=== PATIENT | male | born 1960 | race Caucasian/White ===

== ENCOUNTER 2023-01-09 08:38 | Outpatient (RCR) | payer MEDICARE, MEDICAID, SELFPAY ==
--- NOTE | 2023-01-09 09:51 | OPREHPOC ---
Outpatient Therapy Plan of Care This is a Multidisciplinary Plan of Care that may contain components documented by all disciplines (PT, OT, and ST.) PT Problem 1 PT Problem #1 Knowledge Deficit PT Goal 1 Goal The patient will demonstrate independence in a home program for LE strength and flexibility to continue after discharge from formal PT. Target Visit 24 PT Problem 2 PT Problem #2 Pain PT Goal 1 Goal The patient will report a decrease in left knee pain to 2/10 or less with ADLs. Target Visit 24 PT Problem 3 PT Problem #3 Impaired Range of Motion PT Goal 1 Goal The patient will demonstrate left knee AROM of 0- 120 degrees to improve gait and stair negotiation. Target Visit 24 PT Problem 4 PT Problem #4 Impaired Strength PT Goal 1 Goal The patient will demonstrate 4/5 left knee and hip strength to provide support for gait and ADLs. PT Problem 5 PT Problem #5 Impaired Gait PT Goal 1 Goal The patient will ambulate at least 1,000 feet during the 6 min walk test with the least restrictive assistive device in order to return to community ambulation. Target Visit 24
--- NOTE | 2023-01-09 09:51 | PTOPEVAL1 ---
Assessment and note entered by Rhoda Lopes, PT Evaluation Information Assessment Status Evaluation Diagnosis s/p L TKA, L knee OA, tibial tendon dysfunction Onset 01/07/23 Subjective Information Dejan Caldwell reports he had a left knee replacement on 01/07/23. He had a one night stay in the hospital after surgery and had PT in the hospital. He has been trying home exercises that his hospital PT gave him. He is noting constant pain in the left knee, rating it a 10/10. He used a cane prior to surgery and underwent replacement due to OA. He has a history of 3 other L knee surgeries prior to the replacement. Reported Pain Level Pain Score 10: Self Report Assessment PT Clinical Summary Djean Caldwell presents 2 days s/p left TKA. He has difficulty with left knee ROM, walking, squatting, lifting, driving, and ADLs of dressing. He objectively demonstrates decreased left knee active and passive ROM, decreased left knee and hip strength, impaired balance, impaired gait, and decreased functional abilities. He will benefit from skilled PT to address these limitations. Plan of Care Interventions Electrical Stimulation,Hot Pack/Cold Pack, Intermittent Compression,Manual Therapy,Neuro Re- education,Patient/Caregiver Educati,Therapeutic Activities,Therapeutic Exercise PT Services Indicated Yes Treatment Frequency and 3 times a week for 24 visits Duration These treatments will address the objective and functional deficits as defined above. The patient will be advanced safely and appropriately in order for the patient to progress towards his/her prior level of function. Additional exercises will be introduced and as well as a comprehensive home exercise program upon discharge, if needed, ?to ensure carryover of functional gains achieved in the clinic. This treatment plan has been reviewed and agreement upon by the patient.
--- NOTE | 2023-02-07 16:25 | OPREHPOC ---
Outpatient Therapy Plan of Care This is a Multidisciplinary Plan of Care that may contain components documented by all disciplines (PT, OT, and ST.) PT Problem 1 PT Problem #1 Knowledge Deficit PT Goal 1 Goal The patient will demonstrate independence in a home program for LE strength and flexibility to continue after discharge from formal PT. Target Visit 24 Comment independent with current HEP, continue to progress PT Problem 2 PT Problem #2 Pain PT Goal 1 Goal The patient will report a decrease in left knee pain to 2/10 or less with ADLs. Target Visit 24 Comment resting pain levels have decreased since initial visit, higher levels still reported with activity PT Problem 3 PT Problem #3 Impaired Range of Motion PT Goal 1 Goal The patient will demonstrate left knee AROM of 0- 120 degrees to improve gait and stair negotiation. Target Visit 24 Comment improved ROM, continue to progress PT Problem 4 PT Problem #4 Impaired Strength PT Goal 1 Goal The patient will demonstrate 5/5 left knee and hip strength to provide support for gait and ADLs. Target Visit 24 Comment goal upgraded due to progress PT Problem 5 PT Problem #5 Impaired Gait PT Goal 1 Goal The patient will ambulate at least 1,000 feet during the 6 min walk test with the least restrictive assistive device in order to return to community ambulation. Target Visit 24 Comment distance met, however patient used SPC
--- NOTE | 2023-02-07 16:26 | PTOPPROGNS ---
Assessment and note entered by Gillian Bain DPT Evaluation Information Assessment Status Progress Diagnosis s/p L TKA, L knee OA, tibial tendon dysfunction Onset 01/07/23 Subjective Information Patient reports slight pain in the L knee at the beginning of today's visit. He reports that he feels like his overall mobility and endurance has improved since starting physical therapy. He notes he has been able to walk further distances and with less pain than previously. Patient reports he returns to the doctor february 15 for reassessment . Assessment PT Clinical Summary Mr. Caldwell has attended 10 sessions of skilled physical therapy and has made good progress towards goals. He demonstrated improvements in LE strength, as well as knee passive and action ROM at this date. He continues to show impairments in gait, particularly with reaching L terminal knee extension. Pt improved gait mechanics and speed, however is still limited in gait speed for community ambulation per 6-minute walk test. Appropriate to continue skilled PT to address overall strength, ROM, endurance, balance, and gait. Plan of Care Interventions Electrical Stimulation,Hot Pack/Cold Pack, Intermittent Compression,Manual Therapy,Neuro Re- education,Patient/Caregiver Educati,Therapeutic Activities,Therapeutic Exercise PT Services Indicated Yes Treatment Frequency and continue 3 times a week for remaining 14 visits Duration These treatments will address the objective and functional deficits as defined above. The patient will be advanced safely and appropriately in order for the patient to progress towards his/her prior level of function. Additional exercises will be introduced and as well as a comprehensive home exercise program upon discharge, if needed, ?to ensure carryover of functional gains achieved in the clinic. This treatment plan has been reviewed and agreement upon by the patient.
== END 2023-02-13 15:48 | disposition home or self-care (01) ==
LOC: CHSPT 08:38
PROVIDERS: Visit Provider Orthopaedic Surgery
DX: M17.12 Unilateral primary osteoarthritis, left knee (principal); M76.829 Posterior tibial tendinitis, unspecified leg
CPT/HCPCS: 97016; 97110; 97116; 97161; 97530

== ENCOUNTER 2023-03-23 11:46 | Emergency (ER) | payer MEDICARE, MEDICAID, SELFPAY ==
[2023-03-23 11:50] VITALS: BP 127/76; PULSE 52; RESP 20; TEMP 37.2; O2SAT 97
--- NOTE | 2023-03-23 11:53 | ED.SKABFB ---
HPI - Skin/Abscess/Foreign Bdy General Chief complaint: Skin/Abscess/Foreign Body Stated complaint: rash Time Seen by Provider: 03/23/23 11:49 Source: patient Mode of arrival: ambulatory Limitations: no limitations History of Present Illness HPI narrative: this is 62-year-old gentleman that presents with a rash located on his right flank area they are vesicles on an erythematous base currently nontender no itching no fever chills no shortness of breath chest pain. complaint: rash Onset (ago): day(s) Location: back Severity: mild Pain Consistency: constant Relieving factors: none Exacerbating factors: none Related Data Home Medications Medication Instructions Recorded Confirmed cyanocobalamin (vitamin B-12) 1,000 mcg PO DAILY 07/20/21 01/30/23 1,000 mcg tablet cannabis BYMOUTH 01/30/23 01/30/23 Allergies Allergy/AdvReac Type Severity Reaction Status Date / Time acetaminophen Allergy Severe states Verified 03/27/22 13:45 severe throat swelling--to er Review of Systems Review of Systems: All systems reviewed & are unremarkable except as noted in HPI and below PMFSH Past Medical History Medical History Acute non-recurrent maxillary sinusitis BMI 33.0-33.9,adult BMI 34.0-34.9,adult BMI 36.0-36.9,adult Bradycardia 3 day monitor with heart rate between 39 and 145 with no worrisome arrhythmias. No atrial fibrillation or atrial flutter or significant pauses on 12/27/2022. 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 Echocardiogram on 02/06/2023 with ejection fraction 55% with trace regurgitation of mitral valve, pulmonic valve, and tricuspid valve. Chronic low back pain without sciatica Chronic pain of left knee Chronic pain of right ankle COPD (chronic obstructive pulmonary disease) Folate deficiency anemia (07/19/21) level low at 3.9 on 07/19/2021. Level normal at 6.0 with hemoglobin 14.4 on 07/27/2022. Heel pain, bilateral Mixed hyperlipidemia total cholesterol 282, HDL 37, triglycerides 480 on 06/16/2019. Total cholesterol 204, triglycerides 203, HDL 47, LDL 125 on 07/19/2021. Total cholesterol 212, triglycerides 234, HDL 48, LDL 126 with ratio of 4.4 on 07/27/2022. Nocturia PSA 0.28 on 07/19/2021. PSA 0.39 on 07/27/2022. Obesity (BMI 30.0-34.9) Parkinsons disease Normal exam 07/19/2022. Plant allergic contact dermatitis Vitamin B12 deficiency anemia (07/19/21) B12 low at 358 with goal greater than 400 on 07/19/2021. Level low at 353 with hemoglobin 14.4 on 07/27/2022. Wart wart on left breast Family History Family History Mother Acute myocardial infarction Cerebrovascular accident Father Carcinoma of colon Social History Social History Smoking packs per day: 1.5 Smoking cigarettes per day: 30.0 Years smoked: 19 Smoking pack-years: 28.50 Smoking status: Heavy tobacco smoker Tobacco type: cigarettes Alcohol intake: never Substance use: current Substance use type: marijuana Other substance usage details: medical marijuana Lack of Transportation: No Lack of Food: Never True Current Housing: I Have Housing Concerned About Future Housing: No Difficulty Paying Gas/Electric Bills: No Difficulty Paying for Meds: No Currently Unemployed: No Education: High School Diploma/GED Difficulty w/ Childcare or Family Care: No Exam Const: General: healthy appearing Nutritional Appearance: well nourished Orientation/consciousness: patient oriented x3 Limitations: no limitations Chest: Chest palpation & inspection: normal inspection of the chest Resp: Effort & Inspection: normal respiratory effort Auscultation: clear to auscultation bilaterally Cardio: Rate: regular rate Rhythm: regular rhythm GI: Auscultation: normal bowel sounds Skin: Wounds: wounds noted Other:
== END 2023-03-23 12:02 | disposition home or self-care (01) ==
PROVIDERS: Emergency Provider Emergency Medicine
DX: B02.9 Zoster without complications (principal); J44.9 Chronic obstructive pulmonary disease, unspecified; E78.2 Mixed hyperlipidemia; G20 Parkinson's disease; F17.210 Nicotine dependence, cigarettes, uncomplicated
CPT/HCPCS: 99283

== ENCOUNTER 2023-09-05 13:40 | Emergency (ER) | payer MEDICARE, SELFPAY ==
--- NOTE | ~2023-09-05 | XR_ITS ---
EXAMINATION: XR hand LT min 3V INDICATION: Left hand pain, initial encounter TECHNIQUE: Three views of the left hand are obtained. COMPARISON: 11/15/2009 FINDINGS: There is a nail embedded in the palmar aspect of the second, third, and fourth fingers of t he left hand overlying the proximal phalanges. The nail enters the second finger and its tip projects in the fourth. Its trajectory is difficult to assess on the provided images. The nail appears to be within the soft tissues rather than the bones. No fracture is identified. There is moderate osteoarth ritis of multiple interphalangeal joints. IMPRESSION: 1. Nail embedded in the left hand as detail above which appears to be in the soft tissues rather than the bones however its trajectory is difficult to assess on the provided images. Reviewed, dictated and finalized at location L. LTY PHYSICIAN IMPRESSION: 1. Nail embedded in the left hand as detail above which appears to be in the so ft tissues rather than the bones however its trajectory is difficult to assess on the provided images.
[2023-09-05 13:40] VITALS: BP 154/83; PULSE 71; RESP 18; TEMP 36.7; O2SAT 96
[2023-09-05] MEDS: MORPHINE SULFATE (*CRX) 4 MG/ML INJ IM (14:14)
[2023-09-05] MEDS: TETANUS,DIPHTHERIA,AC PERTUSSIS ADULT 0.5 ML (ADACEL) IM (14:16)
--- NOTE | 2023-09-05 14:50 | PC.NURSE ---
assisted Dr. hugo/ removal of nail procedure
[2023-09-05 15:00] VITALS: BP 150/82; PULSE 67; RESP 17; O2SAT 97
--- NOTE | 2023-09-05 15:23 | ED.UPPEXIN ---
HPI - Extremity Injury (Upper) General Chief Complaint: Extremity Injury, Upper Stated Complaint: 2, 3, & 4 left phalanges injury w/ 3.5 in nail Time Seen by Provider: 09/05/23 13:52 Source: patient and family Mode of arrival: ambulatory Limitations: no limitations History of Present Illness HPI narrative: this is a 62-year-old male that was doing some woodwork and had a nail gun puncture his index 3rd and 4th finger the nail was still lodged has good radial pulse on the left with some some mild numbness and tingling in his fingers and pain that he rates about an 8/10 with decreased range of motion secondary to nail imbedded into his 2nd 3rd and 4th finger. complaint: injury to: left Onset (ago): hour(s) Other Extremity Injury: Left: fingers ( puncture wounds 2nd 3rd and 4th finger) Other injuries: none Handedness: right Place: home Severity: moderate Severity scale (1-10): 8 Context: other ( Nail gun was used and nail punctured his fingers on the left including 2nd 3rd and 4th finger) Associated symptoms: denies other symptoms Related Data Home Medications Medication Instructions Recorded Confirmed cyanocobalamin (vitamin B-12) 1,000 mcg PO DAILY 07/20/21 08/12/23 1,000 mcg tablet cannabis BYMOUTH 01/30/23 08/12/23 Allergies Allergy/AdvReac Type Severity Reaction Status Date / Time acetaminophen Allergy Severe states Verified 03/27/22 13:45 severe throat swelling--to er Review of Systems Review of Systems: All systems reviewed & are unremarkable except as noted in HPI and below PMFSH Past Medical History Medical History Acute non-recurrent maxillary sinusitis At moderate risk for fall BMI 33.0-33.9,adult BMI 34.0-34.9,adult BMI 36.0-36.9,adult Bradycardia 3 day monitor with heart rate between 39 and 145 with no worrisome arrhythmias. No atrial fibrillation or atrial flutter or significant pauses on 12/27/2022. 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 Echocardiogram on 02/06/2023 with ejection fraction 55% with trace regurgitation of mitral valve, pulmonic valve, and tricuspid valve. Chronic low back pain without sciatica Chronic pain of left ankle Chronic pain of left knee Total knee replacement 2022. Chronic pain of right ankle COPD (chronic obstructive pulmonary disease) Encounter for prostate cancer screening PSA 0.39 on 07/27/2022. PSA 0.38 on 07/18/2023. Folate deficiency anemia (07/19/21) level low at 3.9 on 07/19/2021. Level normal at 6.0 with hemoglobin 14.4 on 07/27/2022. Level low at 4.7 with hemoglobin 14.1 on 07/18/2023. Heel pain, bilateral Mixed hyperlipidemia total cholesterol 282, HDL 37, triglycerides 480 on 06/16/2019. Total cholesterol 204, triglycerides 203, HDL 47, LDL 125 on 07/19/2021. Total cholesterol 212, triglycerides 234, HDL 48, LDL 126 with ratio of 4.4 on 07/27/2022. Cholesterol 188, triglycerides 189, HDL 42, LDL 116 with ratio 4.5 on 07/18/2023. Nocturia PSA 0.28 on 07/19/2021. PSA 0.39 on 07/27/2022. Obesity (BMI 30.0-34.9) Parkinsons disease Normal exam 07/19/2022. Plant allergic contact dermatitis Vitamin B12 deficiency anemia (07/19/21) B12 low at 358 with goal greater than 400 on 07/19/2021. Level low at 353 with hemoglobin 14.4 on 07/27/2022. Level low at 178 with hemoglobin 14.1 on 07/18/2023. Wart wart on left breast Family History Family History Mother Acute myocardial infarction Cerebrovascular accident Father Carcinoma of colon Social History Social History Smoking packs per day: 1.5 Smoking cigarettes per day: 30.0 Years smoked: 19 Smoking pack-years: 28.50 Smoking status: Heavy tobacco smoker Tobacco type: cigarettes Alcohol intake: never Substance use: current Substance use type: marijuana Other substance usage details: medical m
[2023-09-05] MEDS: cefTRIAXone 1 GM, LIDOCAINE HCL 1% LOCAL INJ 2.1 ML IM (15:26)
--- NOTE | 2023-09-05 15:30 | PC.NURSE ---
Patient's hand has been soaking per erp request, further wound care done and dressing applied per erp request.
[2023-09-05 16:00] VITALS: BP 143/76; PULSE 66; RESP 17; O2SAT 97
[2023-09-05 16:10] VITALS: BP 142/72; PULSE 67; RESP 17; TEMP 36.9; O2SAT 96
--- NOTE | 2023-09-05 16:34 | PC.NURSE ---
On 09/05/23, the student, Thea Fry, provided care and completed [employer] documentation on this patient. I have reviewed the student's documentation and agree with the findings.
== END 2023-09-05 16:10 | disposition home or self-care (01) ==
PROVIDERS: Emergency Provider Emergency Medicine; PCP Family Medicine
DX: S61.241A Puncture wound with foreign body of left index finger without damage to nail, initial encounter (principal); S61.245A Puncture wound with foreign body of left ring finger without damage to nail, initial encounter; S61.243A Puncture wound with foreign body of left middle finger without damage to nail, initial encounter; E78.2 Mixed hyperlipidemia; J44.9 Chronic obstructive pulmonary disease, unspecified; G20.A1 Parkinson's disease without dyskinesia, without mention of fluctuations; F17.210 Nicotine dependence, cigarettes, uncomplicated; Z23 Encounter for immunization; W29.4XXA Contact with nail gun, initial encounter
CPT/HCPCS: 73130; 90471; 90715; 96372; 99284; J0696; J2270

== ENCOUNTER 2023-09-25 02:08 | Day surgery (SDC) | payer MEDICARE, SELFPAY ==
[2023-09-16 14:49] VITALS: BMI 33.5
--- NOTE | 2023-09-23 09:10 | SUR.PREOP ---
Patient called regarding upcoming procedure. Reviewed preop instructions, appointment times, and procedure prep.
[2023-09-25 09:24] VITALS: BP 127/78; PULSE 50; RESP 19; TEMP 36.1; O2SAT 98; BMI 32.8
[2023-09-25] MEDS: LACTATED RINGERS 1,000 ML 150 ML IV CONT (09:28)
[2023-09-25 09:44] LABS: Glucose Point of Care 111 mg/dl (65-105)
--- NOTE | 2023-09-25 10:04 | WPDANESEPPF ---
Anes - Initial Pre Proc Eval Procedure: Operation Date: 09/25/23 10:30 Proposed Procedures p Colonoscopy - Chandler Vallejo MD Date/Time: 09/25/23 10:04 Surgeon: Chandler Vallejo MD Pre Op Diagnosis: hx of colon polyps Patient Data Age: 62 Gender: M Height: 1.73 m Weight: 98.1 kg Last Vital Signs Temp 96.9 F L 09/25/23 09:24 Pulse 50 L 09/25/23 09:24 Resp 19 09/25/23 09:24 BP 127/78 09/25/23 09:24 Pulse Ox 98 09/25/23 09:24 O2 Del Method Room Air 09/25/23 09:24 Allergies Allergy/AdvReac Type Severity Reaction Status Date / Time acetaminophen Allergy Severe states Verified 09/25/23 09:21 severe throat swelling--to er Home Medications Medication Instructions Recorded Confirmed Type cyanocobalamin (vitamin B-12) 1,000 mcg PO DAILY 07/20/21 09/25/23 History 1,000 mcg tablet triamcinolone acetonide 0.5 % 1 applic topical BID #60 grams 02/12/22 09/25/23 Rx topical cream valacyclovir 1 gram tablet 2,000 mg PO BID PRN fever blister 02/12/22 09/25/23 Rx #30 tabs fluticasone 100 mcg-salmeterol 50 1 inh inhalation Q12H #60 ea 07/19/22 09/25/23 Rx mcg/dose blistr powdr for inhalation (Advair Diskus) metformin 500 mg tablet,extended 500 mg PO QPM #90 tabs 09/24/22 09/25/23 Rx release 24 hr quetiapine 50 mg tablet (Seroquel) 50 mg PO DAILY #90 tabs 11/05/22 09/25/23 Rx cannabis BYMOUTH 01/30/23 08/12/23 History nystatin 100,000 unit/gram topical 1 applic topical BID #30 grams 02/26/23 09/25/23 Rx cream Ventolin HFA 90 mcg/actuation 2 puff inhalation Q4H PRN 05/02/23 09/25/23 Rx aerosol inhaler (albuterol sulfate) shortness of breath or wheezing #18 grams folic acid 1 mg tablet 1 mg PO DAILY #90 tabs 11/09/23 03/13/24 Rx fenofibrate 160 mg tablet 160 mg PO DAILY #90 tabs 06/03/23 09/25/23 Rx budesonide-formoterol HFA 80 2 puff inhalation Q12H #10.2 grams 06/13/23 09/25/23 Rx mcg-4.5 mcg/actuation aerosol inhaler (Symbicort) atorvastatin 40 mg tablet 40 mg PO DAILY #90 tabs 06/17/23 09/25/23 Rx bupropion HCl 150 mg 24 hr tablet, 150 mg PO QAM #90 tabs 06/17/23 09/25/23 Rx extended release (Wellbutrin XL) escitalopram oxalate 20 mg tablet 20 mg PO . Q.a.m. #90 tabs 06/17/23 09/25/23 Rx (Lexapro) buspirone 10 mg tablet 10 mg PO BID #60 tabs 08/12/23 09/25/23 Rx hydrocodone 7.5 mg-ibuprofen 200 1 tablet PO Q6H PRN pain #90 tabs 09/03/23 09/25/23 Rx mg tablet mupirocin 2 % topical ointment 1 applic topical TID 1 week #15 09/05/23 09/25/23 Rx grams Laboratory Tests 09/25/23 09:40 POC Capillary Glucose 111 H mg/dl (65-105) Patient hx anesthesia problems: none Family hx anesthesia problems: none Results Review: All pre-operative results and documents have been reviewed as part of the pre-operative evaluation. [facility] Past Medical History Medical History Acute non-recurrent maxillary sinusitis At moderate risk for fall BMI 33.0-33.9,adult BMI 34.0-34.9,adult BMI 36.0-36.9,adult Bradycardia 3 day monitor with heart rate between 39 and 145 with no worrisome arrhythmias. No atrial fibrillation or atrial flutter or significant pauses on 12/27/2022. Opthalmic Tech appointment on 01/07/2023. Echocardiogram on 02/06/2023 with ejection fraction 55% with trace regurgitation of mitral valve, pulmonic valve, and tricuspid valve. Chronic low back pain without sciatica Chronic pain of left ankle Chronic pain of left knee Total knee replacement 2022. Chronic pain of right ankle COPD (chronic obstructive pulmonary disease) Encounter for prostate cancer screening PSA 0.39 on 07/27/2022. PSA 0.38 on 07/18/2023. Folate deficiency anemia (07/19/21) level low at 3.9 on 07/19/2021. Level normal at 6.0 with hemoglobin 14.4 on 07/27/2022. Level low at 4.7 with hemoglobin 14.1 on 07/18/2023. Heel pain, bilateral Mixed hyperlipidemia total
--- NOTE | 2023-09-25 10:13 | PM.HPGS ---
History of Present Illness History of Present Illness Consent: Risks, benefits, and alternatives have been discussed and questions answered. Patient agrees to proceed with procedure. Chief complaint: hx of colon polyps Narrative: Dejan Caldwell is a 62 year old male with history of colon polyps in 2019. Review of Systems Review of Systems: All systems reviewed & are unremarkable except as noted in HPI and below PMFSH Past Medical History Medical History Acute non-recurrent maxillary sinusitis At moderate risk for fall BMI 33.0-33.9,adult BMI 34.0-34.9,adult BMI 36.0-36.9,adult Bradycardia 3 day monitor with heart rate between 39 and 145 with no worrisome arrhythmias. No atrial fibrillation or atrial flutter or significant pauses on 12/27/2022. 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 Echocardiogram on 02/06/2023 with ejection fraction 55% with trace regurgitation of mitral valve, pulmonic valve, and tricuspid valve. Chronic low back pain without sciatica Chronic pain of left ankle Chronic pain of left knee Total knee replacement 2022. Chronic pain of right ankle COPD (chronic obstructive pulmonary disease) Encounter for prostate cancer screening PSA 0.39 on 07/27/2022. PSA 0.38 on 07/18/2023. Folate deficiency anemia (07/19/21) level low at 3.9 on 07/19/2021. Level normal at 6.0 with hemoglobin 14.4 on 07/27/2022. Level low at 4.7 with hemoglobin 14.1 on 07/18/2023. Heel pain, bilateral Mixed hyperlipidemia total cholesterol 282, HDL 37, triglycerides 480 on 06/16/2019. Total cholesterol 204, triglycerides 203, HDL 47, LDL 125 on 07/19/2021. Total cholesterol 212, triglycerides 234, HDL 48, LDL 126 with ratio of 4.4 on 07/27/2022. Cholesterol 188, triglycerides 189, HDL 42, LDL 116 with ratio 4.5 on 07/18/2023. Nocturia PSA 0.28 on 07/19/2021. PSA 0.39 on 07/27/2022. Obesity (BMI 30.0-34.9) Parkinsons disease Normal exam 07/19/2022. Plant allergic contact dermatitis Vitamin B12 deficiency anemia (07/19/21) B12 low at 358 with goal greater than 400 on 07/19/2021. Level low at 353 with hemoglobin 14.4 on 07/27/2022. Level low at 178 with hemoglobin 14.1 on 07/18/2023. Malorie beverly on left breast Family History Family History Mother Acute myocardial infarction Cerebrovascular accident Father Carcinoma of colon Social History Social History Smoking packs per day: 1.5 Smoking cigarettes per day: 30.0 Years smoked: 19 Smoking pack-years: 28.50 Smoking status: Current every day smoker Tobacco type: cigarettes Alcohol intake: never Substance use: current Substance use type: marijuana Other substance usage details: medical marijuana Lack of Transportation: No Lack of Food: Never True Current Housing: I Have Housing Concerned About Future Housing: No Difficulty Paying Gas/Electric Bills: No Difficulty Paying for Meds: No Currently Unemployed: No Education: High School Diploma/GED Difficulty w/ Childcare or Family Care: No Living arrangements: with family Spiritual care concerns: No Meds Home Medications and Allergies Home Medications Medication Instructions Recorded Confirmed Type cyanocobalamin (vitamin B-12) 1,000 mcg PO DAILY 07/20/21 09/25/23 History 1,000 mcg tablet triamcinolone acetonide 0.5 % 1 applic topical BID #60 grams 02/12/22 09/25/23 Rx topical cream valacyclovir 1 gram tablet 2,000 mg PO BID PRN fever blister 02/12/22 09/25/23 Rx #30 tabs fluticasone 100 mcg-salmeterol 50 1 inh inhalation Q12H #60 ea 07/19/22 09/25/23 Rx mcg/dose blistr powdr for inhalation (Advair Diskus) metformin 500 mg tablet,extended 500 mg PO QPM #90 tabs 09/24/22 09/25/23 Rx release 24 hr quetiapine 50 mg tablet (Seroquel) 50 mg PO DAILY #90 tabs 11/05/22 09/25/23 Rx cannabis
[2023-09-25 10:51] VITALS: BP 109/52; PULSE 48; RESP 22; O2SAT 95
[2023-09-25 11:01] VITALS: BP 109/66; PULSE 47; RESP 19; O2SAT 96
[2023-09-25 11:11] VITALS: BP 129/65; PULSE 50; RESP 19; O2SAT 100
--- NOTE | 2023-09-25 11:14 | SUR.PHASEII ---
Dr. Gill aware of patient's bradycardia in the 40's-50's. Patient states this is what he normally runs. Dr. Gill okay with patient being discharged.
== END 2023-09-25 11:15 | disposition home or self-care (01) ==
PROVIDERS: PCP Family Medicine; Visit Provider Internal Medicine Gastroenterology
PROC: 0DJD8ZZ Inspection of Lower Intestinal Tract, Via Natural or Artificial Opening Endoscopic (ICD-10-PCS; CPT 45378; principal; 2023-09-25 10:30)
DX: Z12.11 Encounter for screening for malignant neoplasm of colon (principal); D12.3 Benign neoplasm of transverse colon; D12.2 Benign neoplasm of ascending colon; K63.5 Polyp of colon; K57.30 Diverticulosis of large intestine without perforation or abscess without bleeding; K64.8 Other hemorrhoids; J44.9 Chronic obstructive pulmonary disease, unspecified; E78.2 Mixed hyperlipidemia; G20.A1 Parkinson's disease without dyskinesia, without mention of fluctuations; D52.9 Folate deficiency anemia, unspecified; G89.29 Other chronic pain; Z79.84 Long term (current) use of oral hypoglycemic drugs; Z79.51 Long term (current) use of inhaled steroids; Z79.891 Long term (current) use of opiate analgesic; F17.210 Nicotine dependence, cigarettes, uncomplicated; F12.90 Cannabis use, unspecified, uncomplicated; E66.9 Obesity, unspecified; Z68.32 Body mass index [BMI] 32.0-32.9, adult
CPT/HCPCS: 45385; 82948; 88305; J2704; J7120

== ENCOUNTER 2024-02-22 18:19 | Emergency (ER) | payer MEDICARE, OTHER, SELFPAY ==
[2024-02-22 18:19] VITALS: BP 135/73; PULSE 58; RESP 16; TEMP 35.9; O2SAT 95
--- NOTE | 2024-02-22 18:46 | ED.WOUNDLAC ---
HPI - Wound/Laceration General Chief Complaint: Wound/Laceration Stated Complaint: LACERATION HAND Source: patient and family Mode of arrival: ambulatory Limitations: no limitations History of Present Illness HPI narrative: laceration at the base of left thumb on a ratchet strap at home 1 hour prior to arrival he tried to glue it without success Related Data Home Medications Medication Instructions Recorded Confirmed cyanocobalamin (vitamin B-12) 1,000 mcg PO DAILY 07/20/21 11/11/23 1,000 mcg tablet cannabis BYMOUTH 01/30/23 11/11/23 Allergies Allergy/AdvReac Type Severity Reaction Status Date / Time acetaminophen Allergy Severe states Verified 02/22/24 18:28 severe throat swelling--to er Review of Systems Review of Systems: All systems reviewed & are unremarkable except as noted in HPI and below PMFSH Past Medical History Medical History Acute non-recurrent maxillary sinusitis At moderate risk for fall BMI 33.0-33.9,adult BMI 34.0-34.9,adult BMI 36.0-36.9,adult Bradycardia 3 day monitor with heart rate between 39 and 145 with no worrisome arrhythmias. No atrial fibrillation or atrial flutter or significant pauses on 12/27/2022. 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 Echocardiogram on 02/06/2023 with ejection fraction 55% with trace regurgitation of mitral valve, pulmonic valve, and tricuspid valve. Chronic low back pain without sciatica Chronic pain of left ankle Chronic pain of left knee Total knee replacement 2022. Chronic pain of right ankle COPD (chronic obstructive pulmonary disease) Encounter for prostate cancer screening PSA 0.39 on 07/27/2022. PSA 0.38 on 07/18/2023. Folate deficiency anemia (07/19/21) level low at 3.9 on 07/19/2021. Level normal at 6.0 with hemoglobin 14.4 on 07/27/2022. Level low at 4.7 with hemoglobin 14.1 on 07/18/2023. Level normal at 18.1 on 10/18/2023. Heel pain, bilateral Mixed hyperlipidemia total cholesterol 282, HDL 37, triglycerides 480 on 06/16/2019. Total cholesterol 204, triglycerides 203, HDL 47, LDL 125 on 07/19/2021. Total cholesterol 212, triglycerides 234, HDL 48, LDL 126 with ratio of 4.4 on 07/27/2022. Cholesterol 188, triglycerides 189, HDL 42, LDL 116 with ratio 4.5 on 07/18/2023. Nocturia PSA 0.28 on 07/19/2021. PSA 0.39 on 07/27/2022. Obesity (BMI 30.0-34.9) Parkinsons disease Normal exam 07/19/2022. Plant allergic contact dermatitis Vitamin B12 deficiency anemia (07/19/21) B12 low at 358 with goal greater than 400 on 07/19/2021. Level low at 353 with hemoglobin 14.4 on 07/27/2022. Level low at 178 with hemoglobin 14.1 on 07/18/2023. Level normal at 664 on 10/18/2023. Wart wart on left breast Family History Family History Mother Acute myocardial infarction Cerebrovascular accident Father Carcinoma of colon Social History Social History Smoking packs per day: 1.5 Smoking cigarettes per day: 30.0 Years smoked: 19 Smoking pack-years: 28.50 Smoking status: Current every day smoker Tobacco type: cigarettes Alcohol intake: never Substance use: current Substance use type: marijuana Other substance usage details: medical marijuana Lack of Transportation: No Lack of Food: Never True Current Housing: I Have Housing Concerned About Future Housing: No Difficulty Paying Gas/Electric Bills: No Difficulty Paying for Meds: No Currently Unemployed: No Education: High School Diploma/GED Difficulty w/ Childcare or Family Care: No Living arrangements: with family Spiritual care concerns: No Exam Narrative: General appearance: Well-developed, well-nourished Skin: Normal color Vascular: Normal peripheral pulses, normal capillary refill. Musculoskeletal: left hand exam showed 2.5 cm laceration at the base of left thumb,
[2024-02-22] MEDS: LIDO 1%/EPINEPHRINE 1:100,000 20 ML VIAL 5 ML INFILTRATE (18:50)
[2024-02-22] MEDS: CEPHALEXIN 500 MG CAPSULE PO (19:25)
[2024-02-22 19:28] VITALS: BP 140/85; PULSE 80; RESP 18; TEMP 36.6; O2SAT 99
== END 2024-02-22 19:28 | disposition home or self-care (01) ==
PROVIDERS: Emergency Provider Emergency Medicine; PCP Family Medicine
DX: S61.412A Laceration without foreign body of left hand, initial encounter (principal); J44.9 Chronic obstructive pulmonary disease, unspecified; E78.2 Mixed hyperlipidemia; F17.210 Nicotine dependence, cigarettes, uncomplicated; W45.8XXA Other foreign body or object entering through skin, initial encounter
CPT/HCPCS: 12001; 99283; A9270

== ENCOUNTER 2024-04-29 08:48 | Outpatient (RCR) | payer MEDICARE, SELFPAY ==
--- NOTE | 2024-04-29 09:45 | OPREHPOC ---
Outpatient Therapy Plan of Care This is a Multidisciplinary Plan of Care that may contain components documented by all disciplines (PT, OT, and ST.) PT Problem 1 PT Problem #1 Knowledge Deficit PT Goal 1 Goal / Goal Update 1. independent and compliant with HEP Target Visit 6 PT Problem 2 PT Problem #2 Pain PT Goal 1 Goal / Goal Update 1. decrease pain at worst to 5/10 or less in the L knee Target Visit 12 PT Problem 3 PT Problem #3 Impaired Range of Motion PT Goal 1 Goal / Goal Update 1. achieve 0-120 degrees active L knee mobility Target Visit 12 PT Problem 4 PT Problem #4 Impaired Strength PT Goal 1 Goal / Goal Update 1. 5/5 bilateral ankle DF strength 2. 5/5 bilateral knee strength overall 3. 4+/5 L hip flex strength Target Visit 12 PT Problem 5 PT Problem #5 Impaired Functional Mobil PT Goal 1 Goal / Goal Update 1. LEFS to display 40% or less functional deficits 2. patient to ambulate with normal gait mechanics without an AD 3. patient to ambulate up and down steps with reciprocal mechanics without increased pain. Target Visit 12
--- NOTE | 2024-04-29 09:45 | PTOPEVAL1 ---
Assessment and note entered by JT File, PT Evaluation Information Assessment Status Evaluation ICD-10 Condition Codes (PT) Z47.89,Z47.1 Onset 04/28/24 Subjective Information patient reports he had L knee replacement back in 2022. he reports he is going to have a revision surgery on the L knee. he reports he is coming to therapy for prehab. he reports the L knee replacement is currently loose and hard for him to walk. he reports he has pain all the time. he reports he is having the revision done by Dr. Rodriguez. he reports he has pain with walking, sitting, standing, stairs, etc. he reports the pain in the knee is now causing pain to the ankles bilaterally from having to change how he walks. he reports he walks with a cane all the time. Reported Pain Level Pain Score 5: Self Report Assessment PT Clinical Summary mr. chambers is a 63 yo man who presents to skilled PT services for rehab due to complications from a previous knee replacement on the L LE. he reports he has had pain since, and reports he was told the knee is loosening. he reports he is going to have a revision done, but is going through the more conservative steps first. he presents today with deficits in L LE mm strength, L knee rom, and displays abnormal gait mechanics. he would benefit from continued skilled PT to address his objective/functional deficits to try and avoid having to have revision of the L knee/prepare the mm's and knee for revision surgery. Plan of Care Interventions Electrical Stimulation,Gait Training,Hot Pack/Cold Pack,Manual Therapy,Neuro Re-education,Patient/ Caregiver Educati,Therapeutic Activities, Therapeutic Exercise PT Services Indicated Yes Treatment Frequency and 3x weekly for 12 visits Duration These treatments will address the objective and functional deficits as defined above. The patient will be advanced safely and appropriately in order for the patient to progress towards his/her prior level of function. Additional exercises will be introduced and as well as a comprehensive home exercise program upon discharge, if needed, ?to ensure carryover of functional gains achieved in the clinic. This treatment plan has been reviewed and agreement upon by the patient.
--- NOTE | 2024-05-01 12:02 | PCPTNOTE ---
Patient called & cancelled scheduled appointment this date due to [not feeling well. ]
--- NOTE | 2024-05-25 17:58 | PTOPPROG ---
Assessment and note entered by Jordin [facility] Evaluation Information Assessment Status Progress - Pt Not Present ICD-10 Condition Codes (PT) Z47.89,Z47.1 Onset 04/28/24 Subjective Information Information provided from 05/22/24 daily note. Pt reports having increased pain over the weekend, but not sure what he did. pt reports nothing helps decrease his pain. Assessment PT Clinical Summary Information gathered from 05/22/24 appointment indicated slight improvement in strength and mobility. Despite improvement the pt. continues to be limited due to pain. Continued skilled PT is indicated in order to continue focus on strength deficits per POC. Plan of Care Interventions Electrical Stimulation,Gait Training,Hot Pack/Cold Pack,Manual Therapy,Neuro Re-education,Patient/ Caregiver Educati,Therapeutic Activities, Therapeutic Exercise PT Services Indicated Yes Treatment Frequency and Continue with 2 remaining treatment sessions Duration focusing on remaining strength deficits. These treatments will address the objective and functional deficits as defined above. The patient will be advanced safely and appropriately in order for the patient to progress towards his/her prior level of function. Additional exercises will be introduced and as well as a comprehensive home exercise program upon discharge, if needed, ?to ensure carryover of functional gains achieved in the clinic. This treatment plan has been reviewed and agreement upon by the patient.
--- NOTE | 2024-05-26 10:10 | OPREHPOC ---
Outpatient Therapy Plan of Care This is a Multidisciplinary Plan of Care that may contain components documented by all disciplines (PT, OT, and ST.) PT Problem 1 PT Problem #1 Knowledge Deficit PT Goal 1 Goal / Goal Update 1. independent and compliant with HEP Target Visit 6 Progress Met PT Problem 2 PT Problem #2 Pain PT Goal 1 Goal / Goal Update 1. decrease pain at worst to 5/10 or less in the L knee Target Visit 12 Progress Not Met PT Problem 3 PT Problem #3 Impaired Range of Motion PT Goal 1 Goal / Goal Update 1. achieve 0-120 degrees active L knee mobility Target Visit 12 Progress Not Met PT Problem 4 PT Problem #4 Impaired Strength PT Goal 1 Goal / Goal Update 1. 5/5 bilateral ankle DF strength 2. 5/5 bilateral knee strength overall 3. 4+/5 L hip flex strength Target Visit 12 Progress Not Met PT Problem 5 PT Problem #5 Impaired Functional Mobil PT Goal 1 Goal / Goal Update 1. LEFS to display 40% or less functional deficits 2. patient to ambulate with normal gait mechanics without an AD 3. patient to ambulate up and down steps with reciprocal mechanics without increased pain. Target Visit 12 Progress Not Met
--- NOTE | 2024-05-26 10:10 | PTOPDC ---
Assessment and note entered by Rhoda Lopes, PT Evaluation Information Assessment Status Progress ICD-10 Condition Codes (PT) Z47.89,Z47.1 Other ICD-10 Condition Codes ( Z47.89, Z47.1 PT) Onset 04/28/24 Subjective Information Dejan Caldwell reports his left knee is the same. He continues to have difficulty walking, squatting , and navigating stairs. He notes he can not walk more than one block due to pain. He does not feel that his knee has improved at all with PT. Reported Pain Level Pain Score 6: Self Report Pain Score 7: Self Report Pain Score 7: Self Report Assessment PT Clinical Summary Dejan Caldwell has completed 12 skilled PT visits for L knee pain following complications after a total knee replacement. He is reporting no change in left knee symptoms since initiating PT and continues to have difficulty walking, navigating stairs, and squatting. He objectively demonstrates decreased and painful left knee AROM, decreased left knee and hip strength, impaired gait, and decreased functional abilities. He demonstrates a regression in left knee AROM today compared to his initial evaluation and has had increased pain over the weekend for unknown reasons. He will see his orthopedic doctor on 05/28/24. He will be discharged from skilled PT due to lack of improvement. Plan of Care PT Services Indicated No
== END 2024-05-26 10:15 | disposition home or self-care (01) ==
LOC: CHSPT 08:48
PROVIDERS: Visit Provider Orthopaedic Surgery
DX: M25.562 Pain in left knee (principal); Z96.652 Presence of left artificial knee joint
CPT/HCPCS: 97014; 97110; 97112; 97150; 97161; 97530; 97750; G0283

== ENCOUNTER 2024-06-02 07:36 | Outpatient (CLI) | payer MEDICARE, SELFPAY ==
--- NOTE | ~2024-06-02 | NM_ITS ---
EXAMINATION: NM bone scan whole body DATE: 06/02/2024 11:27 INDICATION: Left total knee arthroplasty. TECHNIQUE: 25.4 mCi Tc-99m HDP was administered intravenously. Delayed whole-body scintigrams were o btained. COMPARISON: Left knee radiographs dated 06/28/2023, left hand radiographs dated 09/05/2023 and left an kle radiographs dated 03/31/2024 FINDINGS: Likely degenerative joint centered uptake at the bilateral acromioclavicular joints and at multiple j oints at the bilateral hands, wrists, feet and ankles. Photopenic defect at the left knee correspondi ng to a total knee arthroplasty mild uptake along the margins of the arthroplasty components includin g linear uptake underlying the tibial tray which is within normal limits. No other foci of abnormal b one uptake. IMPRESSION: 1. Mild uptake along the margins of a left total knee arthroplasty which remains within normal limits . Would consider however correlation with repeat radiographs of the left knee as [facility]. Line 2. Scattered mild likely degenerative joint centered uptake in the bilateral upper and lower limbs. Reviewed, dictated and finalized at location B. TY TRAPPER IMPRESSION: 1. Mild uptake along the margins of a left total knee arthroplasty which remain s within normal limits. Would consider however correlation with repeat radiogra phs of the left knee as the most recent comparison radiographs are from nearly one year prior. Line 2. Scattered mild likely degenerative joint centered uptake in the bilateral up per and lower limbs.
[2024-06-02 08:22] LABS: Basophils Absolute Auto 0.1 K/mm3 (0.0-0.1); Eosinophils Absolute Auto 0.3 K/mm3 (0-0.3); Eosinophils Percent Auto 2.8 % (0-4.4); Hematocrit 42.8 % (42.0-52.0); Immature Granulocyte Absolute 0.05 K/mm3 (0.00-0.031); Immature Granulocyte Percent A 0.5 % (0-0.5); Lymphocytes Absolute Auto 2.76 K/mm3 (0.9-3.2); Lymphocytes Percent Auto 28.8 % (18.3-44.2); Mean Corpuscular HGB Conc 32.7 g/dl (32-36); Mean Corpuscular Hemoglobin 29.1 pg (26-34); Mean Platelet Volume 9.4 fl (7.4-10.4); Monocytes Absolute Auto 0.7 K/mm3 (0.1-0.6); Monocytes Percent Auto 7.7 % (2.6-8.5); Neutrophils Absolute Auto 5.7 K/mm3 (1.3-6.7); Neutrophils Percent Auto 59.2 % (45.5-73.1); Platelet Count Result 315 k/mm3 (150-375); Red Blood Count 4.81 M/mm3 (4.6-6.20); Red Cell Distribution Width 14.7 % (11.5-14.5); White Blood Count 9.6 K/mm3 (4.5-10.0)
[2024-06-02 08:41] LABS: CRP 0.7 mg/dL (<1.0)
[2024-06-02 09:32] LABS: Erythrocyte Sedimentation Rate 16 mm/hr (0-20)
== END 2024-06-02 07:37 | disposition home or self-care (01) ==
PROVIDERS: PCP Family Medicine; Visit Provider Orthopaedic Surgery
DX: T84.84XA Pain due to internal orthopedic prosthetic devices, implants and grafts, initial encounter (principal); Z96.652 Presence of left artificial knee joint
CPT/HCPCS: 36415; 78306; 85025; 85652; 86140; A9503

== ENCOUNTER 2024-06-15 08:21 | Outpatient (CLI) | payer MEDICARE, SELFPAY ==
--- NOTE | ~2024-06-15 | US_ITS ---
EXAMINATION: US knee asp inj w image LT DATE: 06/15/2024 09:52 INDICATION: Presence of left artificial knee joint. TECHNIQUE: The procedure including the risks, benefits, and alternatives was discussed with the patie nt. Risks discussed included bleeding and infection. The patient understood the risks and agreed to p roceed. The skin overlying the left knee was prepped and draped in usual sterile fashion. Anesthetic was administered with 1% lidocaine subcutaneously. An 18 gauge needle was inserted into the left kn ee joint under ultrasound guidance. Fluid was aspirated. The entry site was cleaned and dressed. The re were no immediate complications. FINDINGS: The left knee joint fluid is not well visualized with ultrasound. IMPRESSION: 1. Ultrasound-guided left knee joint aspiration yielding 7 mL of yellow fluid. Reviewed, dictated and finalized at location A. RAFT PNEUDRAULIC SYSTEMS MECHANIC
--- NOTE | ~2024-06-15 | CT_ITS ---
EXAMINATION: CT knee LT wo con DATE: 06/15/2024 09:49 INDICATION: Presence of left artificial knee joint. TECHNIQUE: Computed tomography (CT) of the left knee was performed without intravenous contrast. Auto mated exposure control and iterative reconstruction technique were employed. The dose-length product was 495.06 mGy-cm. COMPARISON: Bone scan 06/02/2024, left knee radiographs 06/28/2023 FINDINGS: There is a total left knee arthroplasty in near-anatomic alignment with patellar resurfacin g. No fracture. No periprosthetic lucency to suggest loosening or infection. There is a small knee dk int effusion. IMPRESSION: 1. Total left knee arthroplasty in near-anatomic alignment. 2. Small left knee joint effusion. Reviewed, dictated and finalized at location A. DCAST NEWS PRODUCER
== END 2024-06-15 08:22 | disposition home or self-care (01) ==
PROVIDERS: PCP Family Medicine; Visit Provider Orthopaedic Surgery
DX: T84.84XA Pain due to internal orthopedic prosthetic devices, implants and grafts, initial encounter (principal); Z96.652 Presence of left artificial knee joint; G89.29 Other chronic pain; M25.562 Pain in left knee
CPT/HCPCS: 20611; 73700; 87070; 87075; 87205

== ENCOUNTER 2024-08-26 08:39 | Outpatient (CLI) | payer OTHER, SELFPAY ==
--- OUTSIDE RECORDS SUMMARY | 2024-08-26 09:08 | XMS_ITS | Continuity of Care Document ---
Author Organization [facility] Address [address] [place] [address] Phone Care Team Providers Care Termite Inspector Name Role Phone Alaina Velasco Unavailable Unavailable Advance Directives Directive Yes / No Effective Date File Name No Information Encounters Encounter Description Practice Location Reason(s) For Visit Diagnoses Date Provider Providers Copied on Encounter Formerly [facility], [address], [place], [place], [id number], [place] tel:[phone] [facility] [place] No Information Sep- 7-200 5 Krista Foley. [address] , [address], [place], [address], [place]. tel:[phone] Referring Provider: Dejan Nation MD, [address] [place] [address], [place], [address]. tel:[phone] Family History Family Member Type Diagnosis Age At Onset No Information Payers Payer name Insurance type Covered republican ID Authoriza tiangelique(s) IDOT [id number] Social History Type Description Quantity Date Captured Comments Sex Male Smoking Status No Information Chief Complaint And Reason For Visit No Information Reason For Referral Reason For Referral No Information History Of Present Illness Encounter Date Complaint History Of Prese nt Illness No Information Functional Status Date Functional Assessmen t No Information Instructions Date Instruction Additional Infor mation No Information Assessments Type Assessment Date No Information Patient Care Teams Name Effective Dates (start - stop) Status Members No Information
--- OUTSIDE RECORDS SUMMARY | 2024-08-26 09:08 | XMS_ITS | Encounter Summary ---
Author Organization [facility] Address [address] [place] [address] Care Team Providers Care Delivery Helper Name Role Phone Dejan Nation MD Primary Care Provider [phone] Julita Naylor MD Unavailable Charles Paz MD Unavailable [phone] Encounter Details Date Type Department Care Team (Late st Contact Info) Description 11/20/2022 [place] Message Enc [facility] [address], [facility] [address] [place] [address] Charles Paz MD [address] [place] [phone] Visit Follow Up Social History Tobacco Use Types Packs/Day Years Used Date Smoking Tobacco: Every Day Cigarettes 1.5 10 Alcohol Use Standard Drinks/Week Comments Not Currently 0 (1 standard drink = 0.6 oz pur e alcohol) Sex and Gender Information Value Date Recorded Sex Assigned at Not on file Legal Sex Male 5:30 PM CDT Gender Identity Not on file Sexual Orientation Not on file COVID-19 Exposure Response Date Recorded In the last 10 days, have yo u been in contact with someone who was confirmed or suspected to have Coronavirus/COVID-19? No / Unsure 11/20/2022 2:10 PM CDT documented as of this encounter Plan of Treatment Not on file documented as of this encounter Visit Diagnoses Not on filedocumented in this encounter Care Teams Delivery Helper Relationship Specialty Start Date End Date Dejan Nation MD [address] [address] [address] [place] [address] PCP - General FAMILY PRACTICE 11/20/22 Julita Naylor MD [address] [place] [address] Consulting Physician CARDIOVASCULAR DISEASE 12/25/22 Charles Paz MD [address] [place] [address] ORTHOPAEDIC SURGERY 12/25/22 documented as of this encounter
--- OUTSIDE RECORDS SUMMARY | 2024-08-26 09:08 | XMS_ITS | Encounter Summary ---
Author Name [facility] Address [address] [place] [address] Care Team Providers Care Fiscal Assistant Name Role Phone ERNST MAIER Primary Care Provider Unavailabl e Insurance Providers: All historical and current Section Date Range: From patient's date of to the date document was created. This section includes the names of all active insurance providers for the patient. Insurance Provider Type of Coverage Plan Name Start of Policy Coverage End of Policy Coverage Group Number Member ID Insurance Provider's Telephone Number Policy Rider's Name Patient's Relationship to Policy Rider MEDICARE (WNR) MEDICARE (M) PART A Mar 15, 2007 PART A [id number] Nereida CALDWELL PATIENT MEDICARE (WNR) MEDICARE (M) PART B Mar 15, 2007 PART B [id number] Nereida CALDWELL PATIENT Selected Encounter This section includes the information on record at [place] for the Encounter. Date/Time Encounter Type Encounter Description Reason Provider Source Jun 04, 2024 01:00 PM OFFICE O/P EST MOD 30 MIN PRIMARY CARE/MEDICINE ICD-10-CM M54.50 Low back pain, unspecified ERNST MAIER IHRafael Encounter Template Text not used by [place] Assessments - Encounter Diagnoses This section includes the primary and secondary diagnoses documented for the Encounter. Date/Time Primary/Secondary Diagnosis Diagnosis Name Provider Source Jun 04, 2024 02:52 PM PRIMARY Low back pain, unspecified WILLARD,ERNST A [facility] Plan of Treatment: Future Appointments (+ 6 months) and Future Tests (+/- 45 days) The Plan of Treatment section includes future care activities for the patient from all [place] [facility] This section includes future appointments and future orders which are active, pending or scheduled. Future Appointments This section includes appointments that were scheduled to occur 6 months from the date of the Encounter, up to a maximum of 20 appointments. The data comes from all [facility]. Appointment Date/Time Appointment Type Appointme nt Facility Name Jul 14, 2024 10:50 AM AMBULATORY - MEDICINE [facility] Sep 04, 2024 01:00 PM AMBULATORY - PSYCHIATRY [facility] Sep 30, 2024 12:40 PM AMBULATORY - MEDICINE [facility] Active, Pending, and Scheduled Orders This section includes a listing of several types of active, pending, and scheduled orders, including clinic medications orders, diagnostic test orders, procedure orders and consult orders; where the start date of the order is 45 days before the date of the Encounter or 45 days after the date of theEncounter. The data comes from all [facility]. Test Date/Time Test Type Test Details Facility Name Jun 04, 2024 01:40 PM Consult Order [facility] Cons Flakeboard Line Tender's Choice [facility] Vital Signs: All taken on the encounter date This section contains inpatient and outpatient Vital Signs collected on the date of the Encounter. Date/Time Temperature Pulse Blood Pressure Respiratory Rate SP02 Pain Height Weight Body Mass Index Source Jun 04, 2024 01:06 PM 6 [facility] Jun 04, 2024 01:05 PM 149/78 [facility] Jun 04, 2024 01:04 PM 98.3 51 150/81 16 96 6 68 228 35 [facility] Social History: Smoking Status (Most current) and Tobacco Use (All prior to encounter date) This section includes the most current, and the historical, smoking and tobacco- related health factors from the [place] facility where the Encounter took place. Current Smoking Status This section includes the most current smoking, or tobacco-related health factor, from the [place] facility where the Encounter took place. Date/Time Current Smoking Status Comment Kristin aj Jun 04, 2024 01:00 PM VA-TOBACCO NEVER U SED OTHER TYPE [facility] Tobacco Use History This section includes a history of the smoking, or tobacco-related health factors, that were collected on or before the date of the Encounter. The data comes from the [place] facility where the Encounter took place. Date/Time Smoking Status/Tobac co Use Comment Facility Jun 04, 2024 01:00 PM VA-TOBACCO SCREEN FOLLOW-UP [facility] Jun 04, 2024 01:00 PM VA-TOBACCO USE ADVICE [facility] Jun 04, 2024 01:00 PM VA-TOBACCO USE MARBLE SETTER HELPER NO [facility] Jun 04, 2024 01:00 PM VA-TOBACCO USE EVERY DAY CIGARETTES [facility] Jun 04, 2024 01:00 PM VA-TOBACCO USE MED NO [facility] Feb 27, 2001 08:44 AM CURRENT NON-TOBACCO USER-HX OF USE quit 4 yrs. ago. [facility] Jul 31, 2000 11:05 AM CURRENT NON-TOBACCO USER-HX OF USE Stopped three years ago with significant cigarette smoking prior to that time. [facility] Jul 31, 2000 11:05 AM LIFETIME NON-TOBACCO USER [facility] Jul 31, 2000 11:05 AM PREVIOUS SMOKER Severity= MINIMAL [facility] Apr 18, 2000 12:32 PM CURRENT NON-TOBACCO USER-HX OF USE [facility] Apr 18, 2000 12:32 PM PREVIOUS SMOKER [facility] Advance Directives: All historical and current Section Date Range: From patient's date of to the date document was created. This section includes ALL of a patient's completed or amended [place] Advance and Rescinded Directives. The entries below indicate that a directive exists for the patient, but an actual copy is not included with this document. The data comes from all [facility]. Date Advance Directives Provider Source Apr 02, 2000 ADVANCE DIRECTIVE MARQUISE CANALES [facility] Encounter Notes: All associated encounter notes This section contains the clinical notes associated to the Encounter. Date/Time Encounter Note(s) Provider Source Jun 04, 2024 01:12 PM PRIMARY CARE INITI AL EVALUATION NOTE: LOCAL TITLE: PRIMARY CARE PROVIDER NEW VISIT [facility] STANDARD TITLE: PRIMARY CARE INITIAL EVALUATION NOTE DATE OF NOTE: JUN 04, 2024@13:12 ENTRY DATE: JUN 04, 2024@13:12:32 AUTHOR: ERNST MAIER COSIGNER: URGENCY: STATUS: COMPLETED Chief Complaint: Establishment of care History of Present Illness: Mr. James Caldwell is a 63 year old MALE with reported PMH of PTSD, anxiety, migraines, rhinosinusitis, chronic pain of lower back and right ankle, s/p left knee replacements, COPD, HLD, HSV (cold sores), LIZETH ( s/p uvula resections. Does not have CPAP), and Parkinson's disease Pt has followed with outside PCP (Dr. James Ozuna in [place], [place]) since 1995 where he received all of his medical care. Pt has had to pay for the medical expenses out out of pocket however using his social security. Pt requesting community care for outside PCP due distance from the [place] (lives ~ 65 miles away) REVIEW OF SYSTEMS Gen: Denies weight change, fatigue, weakness, fever, chills, night sweats Skin: Denies hair, skin, or nail changes Head: Positive for migraines Eyes: Denies acute vision changes or visual loss Ears: Denies acute hearing changes, tinnitus, ear ache, or drainage Nose: Denies rhinorrhea, congestion Throat: Denies sore throat or post-nasal drip Card: Denies chest pain, palpitations, dizziness, orthopnea Resp: Positive for shortness of breath, MOORE, cough, MOORE, Denies hemoptysis GI: Denies nausea, vomiting, diarrhea, constipation, and abdominal pain : Denies changes in frequency, no hesitancy, urgency, dysuria, hematuria, nocturia, or incontinence Vasc: Positive for bilateral leg swelling MSK: Positive for low back, knee pain, left ankle pain. Denies muscle weakness, Past Medical History: 1) IDIO PERIPH NEURPTHY NEC 2) BACKACHE NOS 3) PAIN IN LIMB 4) CHRONIC SINUSITIS NOS 5) LUMBAGO 6) PROLONG POSTTRAUM STRESS 7) Headache 8) HYPERSOMNI W SLEEP APNEA Medications: Active and Recently Outpatient Medications (including Supplies): Pt here with medicaiton list as follows: - Albuterol sulfate 90 mcg, 2 puffs q4H prn - Atorvastatin 40 mg qDaily - Bupropion HCL 150 mg qAM - Buspirone 15 mg BID - Vitamin B12 1000 mcg qDaily - Escitalopram oxalate 20 mg qDaily - Fenofibrate 160 mg qDaily - Fluticasone-salmeterol 100-50 mcg BID - Folic acid 1mg qDaily - Hydrocodone-Ibuprofen 7.5-200 mg q6H - Quetiapine 50 mg qHS - Valacyclovir 1g BID - Nystatin cream Allergies: Patient has answered NKA Surgical History: - S/p penile implant - S/p uvula resection for LIZETH - Left knee replacement - left ankle surgery Family Medical History: Father: Colon cancer, lung cancer, asbestosis Mother: Heart disease Sister: Parkinson's Social History: - Currently smokes 1ppd. Has smoked for 20-30 years - Denies alcohol - Uses canabis for anxiety and depression. Denies cocaine or heroin Physical Exam: Today's Vitals: BP: 149/78 P: 51 R: 16 WT: 228 T: 98.3 HT: 68 Gen: Pt is a 63 year old MALE in no acute distress. Pt is well appearing and oriented to person, place, time, and situation. Heart: RRR, normal S1 and, S2. No murmur, rub, click, or gallop Lungs: CTAB, no crackles, wheezing, or rhonchi Abd: Soft, nontender, nondistended, no organomegaly, normal bowel sounds Ext: Trace BLE edema Assessment / Plan: - Community care consult placed for outside PCP /es/ ERNST MAIER MD Staff Physician Signed: 06/04/2024 14:52 ERNST MAIER [facility] Jun 04, 2024 01:06 PM NURSING NOTE: LOCAL TITLE: V15 PACT FACE TO FACE NOTE [facility] STANDARD TITLE: NURSING NOTE DATE OF NOTE: JUN 04, 2024@13:06 ENTRY DATE: JUN 04, 2024@13:06:17 AUTHOR: STEVEN TERRY EXP COSIGNER: URGENCY: STATUS: COMPLETED Provider Visit: Patient Identifiers : Full Name Date of Reason for visit: Other: new patient establishing care Mode of Arrival: Ambulatory Allergy Review: Patient has answered NKA Allergy list reviewed and remains current. Recent Vital Signs: Temperature: 98.3 F [36.8 C] (06/04/2024 13:04) Pulse: 51 (06/04/2024 13:04) Respiration: 16 (06/04/2024 13:04) B/P: 149/78 (06/04/2024 13:05) Pain: 6 (06/04/2024 13:04) Wt: 228 lb [103.42 kg] (06/04/2024 13:04) Ht: 68 in [172.7 cm] (06/04/2024 13:04) BMI: 34.7 POX: 96% (06/04/2024 13:04) Would you like to discuss any personal problem, family problem, alcohol use, drug use, or a mental or emotional illness? No Pain Interview Verbal patient Pain Rating Score: 6 Plan of Care: Will inform physician/provider of patient's pain. Contact provided Primary Care phone number and encouraged to call if any questions or concerns. Review that after hours nurse line [phone] and emergency room are available 04/02 for patient use. Contact verbalized good understanding. Cigarette Pack Year History: The patient smokes cigarettes. How many years have you smoked cigarettes? # of years: 20 Average number of packs/day over the entire time patient smoked: Packs/day: 1 Suicide Screen - V: C-SSRS Screening Benedict Suicide Severity Rating Scale (C-SSRS) screener 1. Over the past month, have you wished you were or wished you could go to sleep and not wake up? No 2. Over the past month, have you had any actual thoughts of killing yourself? No 3. Over the past month, have you been thinking about how you might do this? Response not required due to responses to other questions. 4. Over the past month, have you had these thoughts and had some intention of acting on them? Response not required due to responses to other questions. 5. Over the past month, have you started to work out or worked out the details of how to kill yourself? Response not required due to responses to other questions. 6. If yes, at any time in the past month did you intend to carry out this plan? Response not required due to responses to other questions. 7. In your lifetime, have you ever done anything, started to do anything, or prepared to do anything to end your life (for example, collected pills, obtained a gun, gave away valuables, went to the roof but didn't jump)? No 8. If YES, was this within the past 3 months? Response not required due to responses to other questions. Alcohol Use Screen (AUDIT-C) - V: Alcohol Screen: SCREEN FOR ALCOHOL (AUDIT-C) An alcohol screening test (AUDIT-C) was negative (score=0). 1. How often did you have a drink containing alcohol in the past year? Consider a drink to be a 12 ounce can or bottle of regular beer, 8 ounces of malt liquor, a 5 ounce glass of table wine, or a 1.5 ounce shot of liquor (like scotch, gin, or vodka). Never 2. How many drinks containing alcohol did you have on a typical day when you were drinking in the past year? Response not required due to responses to other questions. 3. How often did you have six or more drinks on one occasion in the past year? Response not required due to responses to other questions. Depression Screening - V: Perform PHQ-2 A PHQ-2 screen was performed. The score was 5 which is a positive screen for depression. Over the past two weeks, how often have you been bothered by the following problems? 1. Little interest or pleasure in doing things More than half the days 2. Feeling down, depressed, or hopeless Nearly every day Licensed Independent Provider notified of positive screen and need for follow-up. Name of provider notified: Dr. Maier Tobacco Use Screening - U,L,N,S,PS,M,DE,PH,P: The patient smokes cigarettes every day. The patient has never used other types of tobacco. Patient was advised to stop smoking and/or using other tobacco products. Advised patient that a combination of behavioral counseling and FDA-approved cessation medications is the most effective way to ensure their success in stopping to smoke and/or using other tobacco products. The patient was not interested in additional information about behavioral counseling and other support strategies discussed. Informed patient that medications can help with cravings and withdrawal symptoms, and they greatly increase the chances of successfully stopping your tobacco use. The patient was not interested in a prescription for tobacco cessation medications. /ignacio/ STEVEN TERRY LPN LICENSED PRACTICAL NURSE Signed: 06/04/2024 13:33 STEVEN TERRY [facility]
--- OUTSIDE RECORDS SUMMARY | 2024-08-26 09:08 | XMS_ITS | Encounter Summary ---
Author Organization [facility] Address [facility] [place] [address] Care Team Providers Care Excelsior Machine Tender Name Role Phone Dejan Nation MD Primary Care Provider [phone] Julita Naylor MD Unavailable Charles Paz MD Unavailable [phone] Encounter Details Date Type Department Care Team (Late st Contact Info) Description 12/31/2022 Appfolio Message Enc [facility] [address] [place] [address] Julita Naylor MD [address] [place], [place] [id number] Dejan Paulette Social History Tobacco Use Types Packs/Day Years Used Date Smoking Tobacco: Every Day Cigarettes 1.5 10 Smokeless Tobacco: Never Alcohol Use Standard Drinks/Week Comments Yes 0 (1 standard drink = 0.6 oz pur e alcohol) 1 per week Sex and Gender Information Value Date Recorded Sex Assigned at Not on file Legal Sex Male 5:30 PM CDT Gender Identity Not on file Sexual Orientation Not on file COVID-19 Exposure Response Date Recorded In the last 10 days, have yo u been in contact with someone who was confirmed or suspected to have Coronavirus/COVID-19? No / Unsure 12/27/2022 12:45 PM CDT documented as of this encounter Plan of Treatment Not on file documented as of this encounter Visit Diagnoses Not on filedocumented in this encounter Care Teams Excelsior Machine Tender Relationship Specialty Start Date End Date Dejan Nation MD [address] [facility] [address] [place] [address] PCP - General FAMILY PRACTICE 11/20/22 Julita Naylor MD [address] [place] [address] Consulting Physician CARDIOVASCULAR DISEASE 12/25/22 Charles Paz MD [address] [place] [address] ORTHOPAEDIC SURGERY 12/25/22 documented as of this encounter
--- OUTSIDE RECORDS SUMMARY | 2024-08-26 09:08 | XMS_ITS | Encounter Summary ---
Author Organization [facility] Address [address] [place] [address] Care Team Providers Care Rn Training Name Role Phone Dejan Nation MD Primary Care Provider [phone] Julita Naylor MD Unavailable Charles Paz MD Unavailable [phone] Encounter Details Date Type Department Care Team (Late st Contact Info) Description 01/03/2023 GOPOP[employer]TV Message Enc [facility] [address] [place] [address] Julita Naylor MD [address] [place], [place] [address] Dejan Paulette Social History Tobacco Use Types Packs/Day Years Used Date Smoking Tobacco: Every Day Cigarettes 1.5 10 Smokeless Tobacco: Never Alcohol Use Standard Drinks/Week Comments Yes 0 (1 standard drink = 0.6 oz pur e alcohol) 1 per week Humiliation, Afraid, Rape, and Kick questionnair e Answer Date Recorded Within the last year, have y ou been afraid of your partner or ex-partner? No 01/07/2023 Within the last year, have y ou been humiliated or emotionally abused in other ways by your partner or ex-partner? No Within the last year, have y ou been kicked, hit, slapped, or otherwise physically hurt by your partner or ex-partner? No 01/07/2023 Within the last year, have y ou been raped or forced to have any kind of sexual activity by your partner or ex-partner? No 01/07/2023 Social Connection and Isolat ion Panel [NHANES] Answer Date Recorded In a typical week, how many times do you talk on the phone with family, friends, or neighbors? Three times a week 01/07/2023 How often do you get togethe r with friends or relatives? Three times a week 01/07/2023 How often do you attend chur or mandaeism services? More than 4 times per year 01/07/2023 Do you belong to any clubs o r organizations such as sikhism groups, unions, fraternal or athletic groups, or school groups? Patient declined 01/07/2023 How often do you attend meet ings of the clubs or organizations you belong to? More than 4 times per year 01/07/2023 Are you , , di vorced, , never , or living with a partner? 01/07/2023 AUDIT-C Answer Date Recorded Q1: How often do you have a drink containing alcohol? Never 01/07/2023 Q2: How many drinks containi ng alcohol do you have on a typical day when you are drinking? Patient does not drink Q3: How often do you have si x or more drinks on one occasion? Never 01/07/2023 Overall Financial Resource Strain (CARDIA) Answe r Date Recorded How hard is it for you to pa y for the very basics like food, housing, medical care, and heating? Somewhat hard 01/07/2023 [facility] - Occupational Stress Questionnaire Answer Date Recorded Do you feel stress - tense, restless, nervous, or anxious, or unable to sleep at night because your mind is troubled all the time - these days? To some extent 01/07/2023 Exercise Vital Sign Answer Date Recorde d On average, how many days pe r week do you engage in moderate to strenuous exercise (like a brisk walk)? 3 days 01/07/2023 On average, how many minutes do you engage in exercise at this level? 20 min 01/07/2023 Hunger Vital Sign Answer Date Recorded Within the past 12 months, y ou worried that your food would run out before you got the money to buy more. Sometimes true Within the past 12 months, t he food you bought just didn't last and you didn't have money to get more. Sometimes true PRAPARE - Transportation Answer Date Re corded In the past 12 months, has l ack of transportation kept you from medical appointments or from getting medications? No 12/14 In the past 12 months, has l ack of transportation kept you from meetings, work, or from getting things needed for daily living? No 01/07/2023 Housing Stability Vital Sign Answer Johnny e Recorded In the last 12 months, was t here a time when you were not able to pay the mortgage or rent on time? No 01/07/2023 In the last 12 months, how many places have you lived? 1 01/07/2023 In the last 12 months, was t here a time when you did not have a steady place to sleep or slept in a retirement (including now)? No 01/07/2023 Sex and Gender Information Value Date Recorded [...] on filedocumented in this encounter Care Teams Rn Training Relationship Specialty Start Date End Date Dejan Nation MD [address] [place] [address] [address] [place] [address] PCP - General FAMILY PRACTICE 11/20/22 Julita Naylor MD [address] [place] [address] Consulting Physician CARDIOVASCULAR DISEASE 12/25/22 Charles Paz MD [address] [place] [address] ORTHOPAEDIC SURGERY 12/25/22 documented as of this encounter
--- OUTSIDE RECORDS SUMMARY | 2024-08-26 09:08 | XMS_ITS | Encounter Summary ---
Author Organization [facility] Address [facility] [place] [address] Care Team Providers Care Desktop Engineer Name Role Phone Dejan Nation MD Primary Care Provider [phone] Julita Naylor MD Unavailable Charles Paz MD Unavailable [phone] Encounter Details Date Type Department Care Team (Late st Contact Info) Description 01/09/2023 Efficient Cloudt Message Enc [facility] [address], [facility] [address] [place] [address] Charles Paz MD [address] [place] [address] Dejan Paulette Social History Tobacco Use Types [...] How often do you attend chur or mandaen services? More than 4 times per year 01/07/2023 Do you belong to any clubs o r organizations such as congregational groups, unions, fraternal or athletic groups, or [...] medical care, and heating? Somewhat hard 01/07/2023 [facility] - Occupational [...] place to sleep or slept in a [place] facility (including now)? No 01/07/2023 Sex and Gender [...] PM CDT documented as of this encounter Functional Status * Are you deaf or do you have serious difficulty hearing Answer Date of Assessment Author Status No 01/07/2023 1:57 PM CDT Rylie Simmons RN Active * Are you blind or do you have serious difficulty seeing, even when wearing glasses? Answer Date of Assessment Author Status No 01/07/2023 1:57 PM CDT Rylie Simmons RN Active * Do you have serious difficulty walking or climbing stairs? Answer Date of Assessment Author Status Yes 01/07/2023 1:57 PM CDT Rylie Simmons RN Active * Do you have difficulty dressing or bathing? Answer Date of Assessment Author Status No 01/07/2023 1:57 PM CDT Rylie Simmons RN Active * Because of a physical, mental, or emotional condition, do you have difficulty doing errands alone such as visiting a doctor's office or shopping? Answer Date of Assessment Author Status No 01/07/2023 1:57 PM Rylie Garner RN Active documented as of this encounter Mental Status * Because of a physical, mental, or emotional condition, do you have serious difficulty concentrating, remembering, or making decisions? Answer Entry Date Author Status Yes 01/07/2023 1:57 PM Rylie Garner RN Active documented in this encounter Plan of Treatment Not on file documented as of this encounter Visit Diagnoses Not on filedocumented in this encounter Care Teams Desktop Engineer Relationship Specialty Start Date End Date Dejan Nation MD [address] [place] [address] [address] [place] [address] PCP - General FAMILY PRACTICE 11/20/22 Julita Naylor MD [address] [place] [address] Consulting Physician CARDIOVASCULAR DISEASE 12/25/22 Charles Paz MD [address] [place] [address] ORTHOPAEDIC SURGERY 12/25/22 documented as of this encounter
--- OUTSIDE RECORDS SUMMARY | 2024-08-26 09:08 | XMS_ITS | Clinical Summary ---
Author Organization [facility] Address [facility] [place] [address] Care Team Providers Care Pearl Digger Name Role Phone Dejan Nation MD Primary Care Provider [phone] Julita Naylor MD Unavailable Charles Paz MD Unavailable [phone] Allergies Active Allergy Reactions Criticality Noted Date Comments Acetaminophen Swelling 09/13/2018 Patient currently uses vicoprofen Medications albuterol sulfate HFA 108 (90 Base) MCG/ACT inhaler INHALE 2 PUFFS EVERY 4 HOURS NEEDED FOR SHORTNESS OF BREATH OR WHEEZING 3 Active atorvastatin (LIPITOR) 40 MG tablet Take 1 tablet (40 mg total) by mouth daily. 3 Active buPROPion XL (WELLBUTRIN XL) 150 MG 24 hr tablet Take 1 tablet (150 mg total) by mouth every morning. 3 Active escitalopram (LEXAPRO) 20 MG tablet Take 1 tablet (20 mg total) by mouth daily. 3 Active metFORMIN ER (GLUCOPHAGE-XR) 500 MG 24 hr tablet Take 1 tablet (500 mg total) by mouth every evening. 3 Active Naproxen Sodium (ALEVE OR) As directed Active QUEtiapine (SEROQUEL) 50 MG tablet Take 1 tablet (50 mg total) by mouth daily. 3 Active valACYclovir (VALTREX) 1 g tablet Take 1 tablet (1,000 mg total) by mouth as needed. Active folic acid (FOLVITE) 1 MG tablet Take 1 tablet (1 mg total) by mouth daily. 30 tablet 3 Active HYDROcodone-ibu profen (VICOPROFEN) 7.5-200 MG tablet 3 Active fenofibrate 160 MG tablet Take 1 tablet (160 mg total) by mouth daily. 3 Active SYMBICORT 80-4.5 MCG/ACT inhaler 2 puffs 2 (two) times daily. 3 Active busPIRone (BUSPAR) 5 MG tablet Take 1 tablet (5 mg total) by mouth 2 (two) times daily. 3 Active Active Problems Problem Noted Date Diagnosed Date Status post total left knee replacement 01/09/20 Localized osteoarthritis of left knee 01/07/2023 Primary osteoarthritis of left knee 11/20/2022 Posterior tibial tendon dysfunction 11/20/2022 Encounters Date Type Department Care Team Description 08/21/2024 Transcribe Orders [facility] Pre Access Team [address] [place] [address] Roddy Amaya MD 08/13/2024 Telephone [facility] DEFAULT None, Provider, Question from Last 3 Months Immunizations Name Administration Dates Next Due MODERNA COVID-19 (12+) MRNA, LNP-S, PF, 100 MCG/ 0.5 ML DOSE 06/05/2021,10/12/2020,09/14/2020 Family History Medical History Relation Comments Heart Attack Mother Stent Cardiac Mother Relation Status Comments Mother Social History Tobacco Use Types Packs/Day Years Used Date Smoking Tobacco: Every Day Cigarettes 1.5 10 Smokeless Tobacco: Never Tobacco Cessation:Ready to Q uit: Not Asked; Counseling Given: Not Answered Alcohol Use Standard Drinks/Week Comments Yes 0 [...] How often do you attend chur or sabianism services? More than 4 times per year 01/07/2023 Do you belong to any clubs o r organizations such as restoration groups, unions, fraternal or athletic groups, or [...] medical care, and heating? Somewhat hard 01/07/2023 [facility] - Occupational [...] place to sleep or slept in a penitentiary (including now)? No 01/07/2023 Sex and Gender Information Value Date Recorded Sex Assigned at Not on file Legal Sex Male 5:30 PM CDT Gender Identity Not on file Sexual Orientation Not on file Last Filed Vital Signs Vital Sign Reading Time Taken Comments Blood Pressure 112/54 01/08/2023 5:35 AM CDT Pulse 50 01/08/2023 5:35 AM CDT Temperature 36.2 C (97.2 F) 01/08/2023 5:35 AM CDT Respiratory Rate 18 01/08/2023 5:35 AM CDT Oxygen Saturation 97% 01/08/2023 7:12 AM CDT Inhaled Oxygen Concentration - - Weight 99.8 kg (220 lb) 08/20/2023 7:46 AM CARDIAC EXERCISE PHYSIOLOGIST Height 172.7 cm (5' 8 ) 08/20/2023 7:46 AM CARDIAC EXERCISE PHYSIOLOGIST Body Mass Index 33.45 08/20/2023 7:46 AM CARDIAC EXERCISE PHYSIOLOGIST Plan of Treatment Health Maintenance Due Date Last Done Comments Colorectal Cancer Screening Colonoscopy (10 Years) 1961 Annual Physical 1964 Hepatitis C 10/03/1979 DTaP, Tdap and Td Vaccines (1 - Tdap) 1980 Zoster Vaccines (1 of 2) 10/03/2011 Pneumococcal Vaccine: Pediatrics (0 to 5 Years) and At-Risk Patients (6 to 64 Years) (2 of 2 - PPSV23 or PCV20) 08/09/2021 06/14/2021 COVID-19 Vaccine (5 - season) 2024 07/19/2022, 06/05/2021, 10/12/2020, Additional history exists Influenza Adult (#1) 2024 05/26/2022, 06/14/2021, 08/01/2020, Additional history exists RSV Immunization or 60+ Years (1 - 1-dose 75+ series) 2036 Meningococcal B Vaccine Aged Out No l onger eligible based on patient's age to complete this topic Meningococcal Vaccine Aged Out No justin ember eligible based on patient's age to complete this topic RSV Immunizations Under 20 Months Aged Out No longer eligible based on patient's age to complete this topic Medical Devices Implanted Type Area Smoke Inspector Device Identifier Shelf Expiration Date Model / Serial / Lot Cement Simplex Hv W/Gentamicin - [id number] Implanted:Qty : 1 on 01/07/2023 by Charles Paz MD at [facility] Cement Implant Left: Knee [employer] [id number] 03/14/2024 6195-1-010 / / [id number] Cement Simplex Hv W/Gentamicin - [id number] Implanted:Qty : 1 on 01/07/2023 by Charles Paz MD at [facility] Cement Implant Left: Knee [employer] [id number] 03/14/2024 6195-1-010 / / [id number] Component Ptlr 32mm Medialize Dome Attune - [id number] Implanted:Qty : 1 on 01/07/2023 by Charles Paz MD at [facility] Patella Left: Knee [employer] [id number] 10/13/2027 [id number] / / [id number] Attune Femoral Cruciate Retaining Implanted:Qty : 1 on 01/07/2023 by Charles Paz MD at [facility] Left: Knee [id number] 08/14/2032 [id number] / / [id number] Attune Knee System Tibial Base Rotating Platform Implanted:Qty : 1 on 01/07/2023 by Charles Paz MD at [facility] Left: Knee [id number] 10/12/2032 [id number] / / [id number] Attune Tibial Insert Platform Cruciate Retaining Implanted:Qty : 1 on 01/07/2023 by Charles Paz MD at [facility] Left: Knee [id number] 12/12/2025 [id number] / / [id number] Insurance MEDICARE Advance Directives * Full Code (Latest Code Status on File) Date Activated Date Inactivated Comments 01/07/2023 1:46 PM 01/08/2023 12:55 PM Care Teams Pearl Digger Relationship Specialty Start Date End Date Dejan Nation MD [address] [place] [address] [address] [place] [address] PCP - General FAMILY PRACTICE 11/20/22 Julita Naylor MD [address] [place] [address] Consulting Physician CARDIOVASCULAR DISEASE 12/25/22 Charles Paz MD [address] [place] [address] ORTHOPAEDIC SURGERY 12/25/22
--- OUTSIDE RECORDS SUMMARY | 2024-08-26 09:08 | XMS_ITS | Encounter Summary ---
Author Name [facility] [place] Organization [facility] [place] [place] Address [address] [place] [address] Care Team Providers Care Records Section Supervisor Name Role Phone ERNST LAMAR Primary Care Provider Unavailabl e Insurance Providers: [...] PART A Mar 15, 2007 PART A [id number] CORINNANereida OUSMANECLAUDETTE PATIENT MEDICARE (WNR) MEDICARE (M) PART B Mar 15, 2007 PART B [id number] CORINNANereidaCLAUDETTE PATIENT Selected Encounter This section includes the information on record at MD for the Encounter. Date/Time Encounter Type Encounter Description Reason Pro vider Source Jun 09, 2024 10:23 AM Outpatient Encounter GENERAL INTERNAL MEDICINE IHE Encounter Template Text not used by MD Plan of Treatment: Future Appointments (+ 6 months) and Future Tests (+/- 45 days) The Plan of Treatment section includes future care activities for the patient from all VA treatmentfacilities. This section includes future appointments and future orders which are active, pending or scheduled. Future Appointments This section includes appointments that were scheduled to occur 6 months from the date of the Encounter, up to a maximum of 20 appointments. The data comes from all [facility]. Appointment Date/Time Appointment Type Appointme nt Facility Name Jul 14, 2024 10:50 AM AMBULATORY - MEDICINE [facility] Sep 04, 2024 01:00 PM AMBULATORY - PSYCHIATRY [facility] Sep 30, 2024 12:40 PM AMBULATORY - MEDICINE [facility] Active, Pending, and Scheduled Orders This section includes a listing of several types of active, pending, and scheduled orders, including clinic medications orders, diagnostic test orders, procedure orders and consult orders; where the start date of the order is 45 days before the date of the Encounter or 45 days after the date of theEncounter. The data comes from all [facility]. Test Date/Time Test Type Test Details Facility Name Jun 04, 2024 01:40 PM Consult Order [facility] Jul 21, 2024 04:02 PM Consult Order [facility] CARE-[facility]L BH MED MANAGE Cons [facility] Social History: Smoking Status (Most current) and Tobacco Use (All prior to encounter date) This section includes the most current, and the historical, smoking and tobacco- related health factors from the [place] facility where the Encounter took place. Current Smoking Status This section includes the most current smoking, or tobacco-related health factor, from the [place] facility where the Encounter took place. Date/Time Current Smoking Status Comment Kristin aj Jun 04, 2024 01:00 PM VA-TOBACCO NEVER U SED OTHER TYPE [facility] Tobacco Use History This section includes a history of the smoking, or tobacco-related health factors, that were collected on or before the date of the Encounter. The data comes from the [place] facility where the Encounter took place. Date/Time Smoking Status/Tobac co Use Comment Facility Jun 04, 2024 01:00 PM VA-TOBACCO SCREEN FOLLOW-UP [facility] Jun 04, 2024 01:00 PM VA-TOBACCO USE ADVICE [facility] Jun 04, 2024 01:00 PM VA-TOBACCO USE FORMAL WAITER/WAITRESS NO [facility] Jun 04, 2024 01:00 PM VA-TOBACCO USE EVERY DAY CIGARETTES [facility] Jun 04, 2024 01:00 PM VA-TOBACCO USE MED NO [facility] Feb 27, 2001 08:44 AM CURRENT NON-TOBACCO USER-HX OF USE quit 4 yrs. ago. [facility] Jul 31, 2000 11:05 AM CURRENT NON-TOBACCO USER-HX OF USE Stopped three years ago with significant cigarette smoking prior to that time. [facility] Jul 31, 2000 11:05 AM LIFETIME NON-TOBACCO USER [facility] Jul 31, 2000 11:05 AM PREVIOUS SMOKER Severity= MINIMAL [facility] Apr 18, 2000 12:32 PM CURRENT NON-TOBACCO USER-HX OF USE [facility] Apr 18, 2000 12:32 PM PREVIOUS SMOKER [facility] Advance Directives: All historical and current Section Date Range: From patient's date of to the date document was created. This section includes ALL of a patient's completed or amended [place] Advance and Rescinded Directives. The entries below indicate that a directive exists for the patient, but an actual copy is not included with this document. The data comes from all [place] facilities. Date Advance Directives Provider Source Apr 02, 2000 ADVANCE DIRECTIVE MARQUISE CANALES [facility] Encounter Notes: All associated encounter notes This section contains the clinical notes associated to the Encounter. Date/Time Encounter Note(s) Provider Source Jun 09, 2024 10:23 AM NONVA NOTE: LOCAL TITLE: COMMUNITY CARE-CARE COORDINATION PLAN NOTE [address] STANDARD TITLE: NONVA NOTE DATE OF NOTE: JUN 09, 2024@10:23 ENTRY DATE: JUN 09, 2024@10:23:58 AUTHOR: FARZAD WHITE EXP COSIGNER: URGENCY: STATUS: COMPLETED Vertans Name, and SSN verified. [place] [facility]. AMSA advised him that the referral is still waiting for the DOA approval and nurse assesments and that the referral is not ready until these have been completed. [place] stated he understood and will call back in a couple days to check on the status. /ignacio/ FARZAD SERRANO Advanced Wafer Batter Mixer Signed: 06/09/2024 10:25 FARZAD WHITE [facility]
--- OUTSIDE RECORDS SUMMARY | 2024-08-26 09:08 | XMS_ITS | Clinical Summary ---
Author Organization [facility] Address [address] [facility] [place] [address] Care Team Providers Care Staffing Executive Name Role Phone Dejan Nation MD Primary Care Provider Social History Tobacco Use Types Packs/Day Years Used Date Smoking Tobacco: Never Assessed Sex and Gender Information Value Date Recorded Sex Assigned at Not on file Legal Sex Male 10:21 AM BOSTON CUTTER Gender Identity Not on file Sexual Orientation Not on file Plan of Treatment Health Maintenance Due Date Last Done Comments Hepatitis C Virus (HCV) Screening 1960 TdaP Immunization 1960 Colonoscopy 2006 Colorectal Cancer Screening 2006 Cologuard 10/03/2011 Immunochemical Fecal Occult Blood 10/03/2011 Zoster Immunization (1 of 2) 10/03/2011 PSA Discussion 2016 Pneumococcal Immunization (50+ years) (2 of 2 - PPSV23) 08/09/2021 06/14/2021 Influenza Immunization (#1) 03/15/202404/15, 05/26/2022, 06/14/2021, Additional history exists SARS-COV-2 Immunization ( season) 2024 07/19/2022, 06/05/2021, 10/12/2020, Additional history exists Pneumococcal Immunization Combined Discontinued 06/14/2021 Respiratory Syncytial Virus (RSV) Immunization (Adult) Completed 05/03/2023 Hepatitis B Immunization Aged Out No longer eligible based on patient's age to complete this topic Meningococcal Immunization (ACWY) Aged Out No longer eligible based on patient's age to complete this topic Rotavirus Immunization Aged Out No lo nger eligible based on patient's age to complete this topic Insurance MEDICARE ADMIN Care Teams Staffing Executive Relationship Specialty Start Date End Date Dejan Nation MD [address] [address] PCP - General Family Medicine 09/02/23
--- OUTSIDE RECORDS SUMMARY | 2024-08-26 09:09 | XMS_ITS | Encounter Summary ---
Author Name [facility] [place] [facility] [place] Organization [facility] [place] Address [address] [place] [address] Care Team Providers Care Oceanography Professor Name Role Phone ERNST LAMAR Primary Care [...] PART A Mar 15, 2007 PART A [id number] CORINNANereida OUSMANECLAUDETTE PATIENT MEDICARE (WNR) MEDICARE (M) PART B Mar 15, 2007 PART B [id number] CORINNANereidaCLAUDETTE PATIENT Selected Encounter This section includes the information on record at [place] for the Encounter. Date/Time Encounter Type Encounter Description Reason Pro vider Source Jul 21, 2024 02:30 PM Outpatient Encounter GENERAL INTERNAL MEDICINE IHE Encounter Template Text not used by [place] Plan of Treatment: Future Appointments (+ 6 [...] 20 appointments. The data comes from all [facility]. Appointment Date/Time Appointment Type Appointme nt Facility Name Sep 04, 2024 01:00 PM AMBULATORY - PSYCHIATRY [facility] Sep 30, 2024 12:40 PM AMBULATORY - MEDICINE [facility] Active, Pending, and Scheduled Orders This section includes a listing of several types of active, pending, and scheduled orders, including clinic medications orders, diagnostic test orders, procedure orders and consult orders; where the start date of the order is 45 days before the date of the Encounter or 45 days after the date of theEncounter. The data comes from all [facility]. Test Date/Time Test Type Test Details Facility Name Jul 21, 2024 04:02 PM Consult Order [facility] BH MED MANAGE [facility] Jul 29, 2024 12:16 PM Consult Order [facility] SLEEP STUDY [facility] Social History: Smoking Status (Most current) and Tobacco Use (All prior to encounter date) This section includes the most current, and the historical, smoking and tobacco- related health factors from the [place] facility where the Encounter took place. Current Smoking Status This section includes the most current smoking, or tobacco-related health factor, from the [place] facility where the Encounter took place. Date/Time Current Smoking Status Comment Kristin aj Jun 04, 2024 01:00 PM VA-TOBACCO NEVER U SED OTHER TYPE [facility] Tobacco Use History This section includes a history of the smoking, or tobacco-related health factors, that were collected on or before the date of the Encounter. The data comes from the [place] facility where the Encounter took place. Date/Time Smoking Status/Tobac co Use Comment Facility Jun 04, 2024 01:00 PM VA-TOBACCO SCREEN FOLLOW-UP [facility] Jun 04, 2024 01:00 PM VA-TOBACCO USE ADVICE [facility] Jun 04, 2024 01:00 PM VA-TOBACCO USE SUPERVISOR SOLDERING NO [facility] Jun 04, 2024 01:00 PM VA-TOBACCO USE EVERY DAY CIGARETTES [facility] Jun 04, 2024 01:00 PM VA-TOBACCO USE MED NO [facility] Feb 27, 2001 08:44 AM CURRENT NON-TOBACCO USER-HX OF USE quit 4 yrs. ago. [facility] Jul 31, 2000 11:05 AM CURRENT NON-TOBACCO USER-HX OF USE Stopped three years ago with significant cigarette smoking prior to that time. [facility] Jul 31, 2000 11:05 AM LIFETIME NON-TOBACCO USER [facility] Jul 31, 2000 11:05 AM PREVIOUS SMOKER Severity= MINIMAL [facility] Apr 18, 2000 12:32 PM CURRENT NON-TOBACCO USER-HX OF USE [facility] Apr 18, 2000 12:32 PM PREVIOUS SMOKER [facility] Advance Directives: All historical and current Section Date Range: From patient's date of to the date document was created. This section includes ALL of a patient's completed or amended [place] Advance and Rescinded Directives. The entries below indicate that a directive exists for the patient, but an actual copy is not included with this document. The data comes from all [place] facilities. Date Advance Directives Provider Source Apr 02, 2000 ADVANCE DIRECTIVE CANALESMARQUISE Good [facility] Encounter Notes: All associated encounter notes This section contains the clinical notes associated to the Encounter. Date/Time Encounter Note(s) Provider Source Jul 21, 2024 02:30 PM NONVA NOTE: LOCAL TITLE: COMMUNITY CARE-REQUEST FOR SERVICE NOTE ST STANDARD TITLE: NONVA NOTE DATE OF NOTE: JUL 21, 2024@14:30 ENTRY DATE: JUL 21, 2024@14:33:12 AUTHOR: EVELIN CRESPO EXP COSIGNER: URGENCY: STATUS: COMPLETED COMMUNITY CARE-REQUEST FOR SERVICE NOTE ST Has ADDENDA Request for Services (RFS) documentation has been sent for scanning to [employer] [facility] Community Care Consult: COMMUNITY CARE-none Consult No: none Date sent to scanning: Jul A Request for Service (RFS) form [id number] has been received which includes the following: Care Requested:Mental Health [id number] ICD-10 Dx code: F43.10 Date VA received request: Jul Date service required: TBD Requesting Community Provider Information: Name of Ordering Provider: Dr. Roddy Amaya Office:[facility] Address, [facility], [facility]: [address] [place] [address] Phone Number: [phone] Referring to: Colleen Venancio [facility]- [address] [place] [address] P:[phone] F:[phone] /ignacio/ EVELIN SMITHN RN REGISTERED NURSE Signed: 07/21/2024 14:47 Receipt Acknowledged By: 07/21/2024 15:04 /ginacio/ JACQUELIN ELLIS BROKE WORKER-C NURSE PRACTITIONER 07/21/2024 ADDENDUM STATUS: COMPLETED MENTAL HEALTH CLINIC OUTPATIENT [facility] Consult placed requesting [facility]. /ignacio/ JACQUELIN ELLIS BROKE WORKER-C NURSE PRACTITIONER Signed: 07/21/2024 15:04 EVELIN CRESPO [facility]
--- OUTSIDE RECORDS SUMMARY | 2024-08-26 09:09 | XMS_ITS | Encounter Summary ---
Author Name [facility] [place] Organization [facility] [place] Address [address] [place] [address] Care Team Providers Care Kiln Firer Name Role Phone ERNST LAMAR Primary Care [...] PART A Mar 15, 2007 PART A [id number] CORINNANereida OUSMANECLAUDETTE PATIENT MEDICARE (WNR) MEDICARE ([place]) PART B Mar 15, 2007 PART B [id number] [phone] CORINNANereidaCLAUDETTE PATIENT Selected Encounter This section includes the information on record at [place] for the Encounter. Date/Time Encounter Type Encounter Description Reason Pro vider Source Jun 25, 2024 08:25 AM Outpatient Encounter GENERAL INTERNAL MEDICINE IHE Encounter Template Text not used by [place] Plan of Treatment: Future Appointments (+ 6 [...] 20 appointments. The data comes from all [facility]. Appointment Date/Time Appointment Type Appointme nt Facility Name Jul 14, 2024 10:50 AM AMBULATORY - MEDICINE [facility] Sep 04, 2024 01:00 PM AMBULATORY - PSYCHIATRY [facility] Sep 30, 2024 12:40 PM AMBULATORY - MEDICINE [facility] Active, Pending, and Scheduled Orders This section includes a listing of several types of active, pending, and scheduled orders, including clinic medications orders, diagnostic test orders, procedure orders and consult orders; where the start date of the order is 45 days before the date of the Encounter or 45 days after the date of theEncounter. The data comes from all [facility]. Test Date/Time Test Type Test Details Facility Name Jun 04, 2024 01:40 PM Consult Order COMMUNITY CARE-ADMIN PC STL Cons [facility] Jul 21, 2024 04:02 PM Consult Order COMMUNITY CARE-STL BH MED MANAGE Cons [facility] Jul 29, 2024 12:16 PM Consult Order COMMUNITY CARE-STL SLEEP STUDY [facility] Social History: Smoking Status (Most current) and Tobacco Use (All prior to encounter date) This section includes the most current, and the historical, smoking and tobacco- related health factors from the [place] facility where the Encounter took place. Current Smoking Status This section includes the most current smoking, or tobacco-related health factor, from the [place] facility where the Encounter took place. Date/Time Current Smoking Status Comment Kristin aj Jun 04, 2024 01:00 PM VA-TOBACCO NEVER U SED OTHER TYPE [facility] Tobacco Use History This section includes a history of the smoking, or tobacco-related health factors, that were collected on or before the date of the Encounter. The data comes from the [place] facility where the Encounter took place. Date/Time Smoking Status/Tobac co Use Comment Facility Jun 04, 2024 01:00 PM VA-TOBACCO SCREEN FOLLOW-UP [facility] Jun 04, 2024 01:00 PM VA-TOBACCO USE ADVICE [facility] Jun 04, 2024 01:00 PM VA-TOBACCO USE EXTERIOR DESIGNER NO [facility] Jun 04, 2024 01:00 PM VA-TOBACCO USE EVERY DAY CIGARETTES [facility] Jun 04, 2024 01:00 PM VA-TOBACCO USE MED NO [facility] Feb 27, 2001 08:44 AM CURRENT NON-TOBACCO USER-HX OF USE quit 4 yrs. ago. [facility] Jul 31, 2000 11:05 AM CURRENT NON-TOBACCO USER-HX OF USE Stopped three years ago with significant cigarette smoking prior to that time. [facility] Jul 31, 2000 11:05 AM LIFETIME NON-TOBACCO USER [facility] Jul 31, 2000 11:05 AM PREVIOUS SMOKER Severity= MINIMAL [facility] Apr 18, 2000 12:32 PM CURRENT NON-TOBACCO USER-HX OF USE [facility] Apr 18, 2000 12:32 PM PREVIOUS SMOKER [facility] Advance Directives: All historical and current Section Date Range: From patient's date of to the date document was created. This section includes ALL of a patient's completed or amended [place] Advance and Rescinded Directives. The entries below indicate that a directive exists for the patient, but an actual copy is not included with this document. The data comes from all [place] facilities. Date Advance Directives Provider Source Apr 02, 2000 ADVANCE DIRECTIVE MARQUISE CANALES [facility] Encounter Notes: All associated encounter notes This section contains the clinical notes associated to the Encounter. Date/Time Encounter Note(s) Provider Source Jun 25, 2024 08:25 AM ADMINISTRATIVE NOT E: LOCAL TITLE: ADMINISTRATIVE COMMUNITY CARE REQUEST STL STANDARD TITLE: ADMINISTRATIVE NOTE DATE OF NOTE: JUN 25, 2024@08:25 ENTRY DATE: JUN 25, 2024@08:25:53 AUTHOR: JANNETTE SALAMANCA COSIGNER: URGENCY: STATUS: COMPLETED A follow-up call from ; documentation writer attempt to provide assistance. However, the mentioned that he was receiving another call from the [place] and indicated that he would call back if further assistance was needed. The call was subsequently disconnected by the . /ignacio/ JANNETTE SALAMANCA ADVANCE AUTOMATION CONTROLS SPECIALIST Signed: 06/25/2024 08:27 JANNETTE SALAMANCA [facility]
--- OUTSIDE RECORDS SUMMARY | 2024-08-26 09:09 | XMS_ITS | Encounter Summary ---
Author Organization [facility] Address [facility] [place] [address] Care Team Providers Care Offshore Wind Turbine Technician Name Role Phone None, Provider Primary Care Provider Unavaila Dejan Maya MD Primary Care Provider [phone] Julita Naylor MD Unavailable Charles Paz MD Unavailable [phone] Encounter Details Date Type Department Care Team (Late st Contact Info) Description 12/20/2018 Abstract [facility] CONVERSION [address] [place] [address] , Generic Conversion, Social History Tobacco Use Types Packs/Day Years Used Date Smoking Tobacco: Never Assessed Sex and Gender Information Value Date Recorded Sex Assigned at Not on file Legal Sex Male 5:30 PM CDT Gender Identity Not on file Sexual Orientation Not on file documented as of this encounter Plan of Treatment Not on file documented as of this encounter Visit Diagnoses Not on filedocumented in this encounter Care Teams Offshore Wind Turbine Technician Relationship Specialty Start Date End Date None, Provider, PCP - General 09/13/18 11/19/22 Dejan Nation MD [address] [address] [address] [place] [address] PCP - General FAMILY PRACTICE 11/20/22 Julita Naylor MD [address] [place] [address] Consulting Physician CARDIOVASCULAR DISEASE 12/25/22 Charles Paz MD [address] [place] [address] ORTHOPAEDIC SURGERY 12/25/22 documented as of this encounter
--- OUTSIDE RECORDS SUMMARY | 2024-08-26 09:09 | XMS_ITS | Encounter Summary ---
Author Organization [facility] Address [facility] [place] [address] Care Team Providers Care Bus Escort Name Role Phone Dejan Nation MD Primary Care Provider [phone] Julita Naylor MD Unavailable Charles Paz MD Unavailable [phone] Encounter Details Date Type Department Care Team (Late st Contact Info) Description 06/28/2023 Eurocept Message Enc [facility] [address], [facility] [address] [place] [address] Charles Paz MD [address] [place] [id number] Visit Follow Up Social History Tobacco Use [...] How often do you attend chur or alevism services? More than 4 times per year 01/07/2023 Do you belong to any clubs o r organizations such as anabaptism groups, unions, fraternal or athletic groups, or [...] medical care, and heating? Somewhat hard 01/07/2023 [facility] - Occupational [...] place to sleep or slept in a detention (including now)? No 01/07/2023 Sex and Gender Information Value Date Recorded Sex Assigned at Not on file Legal Sex Male 5:30 PM CDT Gender Identity Not on file Sexual Orientation Not on file documented as of this encounter Functional Status * Are you deaf or do you have serious difficulty hearing Answer Date of Assessment Author Status No 01/07/2023 1:57 PM LUISAT Rylie Simmons RN Active * Are you blind or do you have serious difficulty seeing, even when wearing glasses? Answer Date of Assessment Author Status No 01/07/2023 1:57 PM LUISAT Rylie Simmons RN Active * Do you have serious difficulty walking or climbing stairs? Answer Date of Assessment Author Status Yes 01/07/2023 1:57 PM Rylie Garner RN Active * Do you have difficulty dressing or bathing? Answer Date of Assessment Author Status No 01/07/2023 1:57 PM Rylie Garner RN Active * Because of a physical, [...] Date Author Status Yes 01/07/2023 1:57 PM CDT Rylie Simmons RN Active documented in this encounter Plan of Treatment Not on file documented as of this encounter Visit Diagnoses Not on filedocumented in this encounter Care Teams Bus Escort Relationship Specialty Start Date End Date Dejan Nation MD [address] [place] [address] [address] [place] [address] PCP - General FAMILY PRACTICE 11/20/22 Julita Naylor MD [address] [place] [address] Consulting Physician CARDIOVASCULAR DISEASE 12/25/22 Charles Paz MD [address] [place] [address] ORTHOPAEDIC SURGERY 12/25/22 documented as of this encounter
--- OUTSIDE RECORDS SUMMARY | 2024-08-26 09:09 | XMS_ITS | Encounter Summary ---
Author Organization [facility] Address [facility] [place] [address] Care Team Providers Care Outboard System Operator Name Role Phone Dejan Nation MD Primary Care Provider [phone] Julita Naylor MD Unavailable Charles Paz MD Unavailable [phone] Reason for Visit * Reason Onset Date Comments Question 08/13/2024 Encounter Details Date Type Department Care Team (Late st Contact Info) Description 08/13/2024 Telephone [facility] DEFAULT None, Provider, MD Question Social History Tobacco Use Types Packs/Day Years [...] How often do you attend chur or confucianist services? More than 4 times per year 01/07/2023 Do you belong to any clubs o r organizations such as hoahaoism groups, unions, fraternal or athletic groups, or [...] medical care, and heating? Somewhat hard 01/07/2023 [facility] - Occupational Stress [...] place to sleep or slept in a longterm (including now)? No 01/07/2023 Sex and Gender [...] 1:57 PM Rylie Garner RN Active * Are you blind or do you have serious difficulty seeing, even when wearing glasses? Answer Date of Assessment Author Status No 01/07/2023 1:57 PM Rylie Garner RN Active * Do you have serious [...] Garner RN Active documented in this encounter Progress Notes * Evelia Rodriguez - 08/19/2024 3:59 PM CST Spoke with Thea she said she spoke with Brittni in [place] and patient has appt this is not needed ICE CLINICAL MARKETER * Teresa Cowan - 08/13/2024 2:12 PM CST Caller name: Thea Facility name: [facility] Call back/ext. #: [phone] option 3 MyChart: No- caller prefers to be called via telephone Call details: They would like to know Dr. Prather's first available for sleep apnea ICE CLINICAL MARKETER documented in this encounter Plan of Treatment Not on file documented as of this encounter Visit Diagnoses Not on filedocumented in this encounter Care Teams Outboard System Operator Relationship Specialty Start Date End Date Dejan Nation MD [address] [address] [address] [place] [address] PCP - General FAMILY PRACTICE 11/20/22 Julita Naylor MD [address] [place] [address] Consulting Physician CARDIOVASCULAR DISEASE 12/25/22 Charles Paz MD [address] [place] [address] ORTHOPAEDIC SURGERY 12/25/22 documented as of this encounter
--- OUTSIDE RECORDS SUMMARY | 2024-08-26 09:09 | XMS_ITS | Encounter Summary ---
Author Name [facility] Organization [facility] [place] [facility] [place] Address [address] [place] [address] Care Team Providers Care Dairy Truck Driver Name Role Phone ERNST LAMAR Primary Care [...] PART A Mar 15, 2007 PART A [id number] CORINNANereida OUSMANECLAUDETTE PATIENT MEDICARE (WNR) MEDICARE ([place]) PART B Mar 15, 2007 PART B [id number] [phone] [id number] CORINNANereidaCLAUDETTE PATIENT Selected Encounter This section includes the information on record at [place] for the Encounter. Date/Time Encounter Type Encounter Description Reason Pro vider Source Jul 29, 2024 11:32 AM Outpatient Encounter GENERAL INTERNAL MEDICINE IHE Encounter Template Text not used by [place] Plan of Treatment: Future Appointments (+ 6 [...] 20 appointments. The data comes from all [facility]. Appointment Date/Time Appointment Type Appointme nt Facility Name Sep 04, 2024 01:00 PM AMBULATORY - PSYCHIATRY [facility] Sep 30, 2024 12:40 PM AMBULATORY - MEDICINE [facility] Active, Pending, and Scheduled Orders This section includes a listing of several types of active, pending, and scheduled orders, including clinic medications orders, diagnostic test orders, procedure orders and consult orders; where the start date of the order is 45 days before the date of the Encounter or 45 days after the date of theEncounter. The data comes from all [facility]. Test Date/Time Test Type Test Details Facility Name Jul 21, 2024 04:02 PM Consult Order [facility] BH MED MANAGE [facility] Jul 29, 2024 12:16 PM Consult Order [facility] SLEEP STUDY [facility] Social History: Smoking Status (Most current) and Tobacco Use (All prior to encounter date) This section includes the most current, and the historical, smoking and tobacco- related health factors from the [place] facility where the Encounter took place. Current Smoking Status This section includes the most current smoking, or tobacco-related health factor, from the [place] facility where the Encounter took place. Date/Time Current Smoking Status Comment Kristin aj Jun 04, 2024 01:00 PM VA-TOBACCO USE EKATERINA RY DAY CIGARETTES [facility] Tobacco Use History This section includes a history of the smoking, or tobacco-related health factors, that were collected on or before the date of the Encounter. The data comes from the [place] facility where the Encounter took place. Date/Time Smoking Status/Tobac co Use Comment Facility Jun 04, 2024 01:00 PM VA-TOBACCO SCREEN FOLLOW-UP [facility] Jun 04, 2024 01:00 PM VA-TOBACCO USE ADVICE [facility] Jun 04, 2024 01:00 PM VA-TOBACCO USE MIXER HELPER NO [facility] Jun 04, 2024 01:00 PM VA-TOBACCO USE EVERY DAY CIGARETTES [facility] Jun 04, 2024 01:00 PM VA-TOBACCO USE MED NO [facility] Feb 27, 2001 08:44 AM CURRENT NON-TOBACCO USER-HX OF USE quit 4 yrs. ago. [facility] Jul 31, 2000 11:05 AM CURRENT NON-TOBACCO USER-HX OF USE Stopped three years ago with significant cigarette smoking prior to that time. [facility] Jul 31, 2000 11:05 AM LIFETIME NON-TOBACCO USER [facility] Jul 31, 2000 11:05 AM PREVIOUS SMOKER Severity= MINIMAL [facility] Apr 18, 2000 12:32 PM CURRENT NON-TOBACCO USER-HX OF USE [facility] Apr 18, 2000 12:32 PM PREVIOUS SMOKER [facility] Advance Directives: All historical and current Section Date Range: From patient's date of to the date document was created. This section includes ALL of a patient's completed or amended [place] Advance and Rescinded Directives. The entries below indicate that a directive exists for the patient, but an actual copy is not included with this document. The data comes from all [place] facilities. Date Advance Directives Provider Source Apr 02, 2000 ADVANCE DIRECTIVE CANALESMARQUISE Good New [facility] Encounter Notes: All associated encounter notes This section contains the clinical notes associated to the Encounter. Date/Time Encounter Note(s) Provider Source Jul 29, 2024 11:33 AM NONVA NOTE: LOCAL TITLE: COMMUNITY CARE-REQUEST FOR SERVICE NOTE ST STANDARD TITLE: NONVA NOTE DATE OF NOTE: JUL 29, 2024@11:33 ENTRY DATE: JUL 29, 2024@11:33:21 AUTHOR: PAPA CARROLL COSIGNER: URGENCY: STATUS: COMPLETED COMMUNITY CARE-REQUEST FOR SERVICE NOTE STL Has ADDENDA Request for Services (RFS) documentation has been sent for scanning to [facility] Community Care Consult: COMMUNITY CARE-ADMIN PC STL Consult No: [id number] Date sent to scanning: Jul A Request for Service (RFS) form [id number] has been received which includes the following: Care Requested: NEEDS HOME SLEEP STUDY ICD-10 Dx code: G47.30 Date VA received request: Jul Date service required: Jul Requesting Community Provider Information: Name of Ordering Provider: LUCIEN MORRIS Office:[facility] Address, [facility], [facility]: [address] [place] [address], [facility] /ignacio/ PAPA GLEN ADVANCED RESIDENCE HALL DIRECTOR Signed: 07/29/2024 11:36 Receipt Acknowledged By: 07/29/2024 12:18 /ignacio/ JACQUELIN ELLIS SCALE MANAGER-C NURSE PRACTITIONER 07/29/2024 11:40 /ignacio/ EVELIN SMITHN RN REGISTERED NURSE 07/29/2024 ADDENDUM STATUS: COMPLETED [facility] SLEEP STUDY Consult placed. Thank you. /ignacio/ GEORGIA CARVER MSN SCALE MANAGER-C NURSE PRACTITIONER Signed: 07/29/2024 12:18 PAPA CARROLL [facility]
--- OUTSIDE RECORDS SUMMARY | 2024-08-26 09:09 | XMS_ITS | Continuity of Care Document ---
Author Name [facility] Organization [facility] Care Team Providers Care Post Closer Name Role Phone [facility] Unavailable Unavailable Problems Combined list of problems from [facility] and [facility] facilities. It does not include entries that were removed or entered in error. Problem Status Onset Date Problem Type Date of Resolution Comments Source BACKACHE NOS Active Condition [facility] CHRONIC SINUSITIS NOS Active Condition [facility] Headache Active Condition Mar 14 Entered By: MARIA ISABEL ADAMS Comment: Complicated by analgesic rebound due to Midrin and tylenol u [facility] HYPERSOMNI W SLEEP APNEA Active Condition [facility] IDIO PERIPH NEURPTHY NEC Active Condition [facility] LBP - Low back pain (SNOMED CT [id number]) Active Condition [facility] PAIN IN LIMB Active Condition [facility] PROLONG POSTTRAUM STRESS Active Condition [facility] Diagnosis: ICD-10-CM M54.50 Low back pain, unspecified Active Diagnosis [facility] Immunizations Combined list of available immunizations from the [facility] and [facility] facilities. Immunization Series Date Given Administered By Site Reaction Lot Number CVX Code Drug Crusher Supervisor Status Comments Source INFLUENZA, UNSPECIFIED FORMULATION 2004 88 complet ed [facility] Vital Signs Combined list of inpatient and outpatient Vital Signs from [facility], ranging from 12 months to all on record, depending upon the facility. Vital Sign Value Date Comments Source SYSTOLIC BLOOD PRESSURE 150 06/04/2024 13:04:59 [facility] DIASTOLIC BLOOD PRESSURE 81 06/04/2024 13:04:59 [facility] PULSE OXIMETRY 96 06/04/2024 13:04:59 [facility] WEIGHT 228 06/04/2024 13:04:59 [facility] BMI 35 kg/m2 06/04/2024 13:04:59 [facility] PAIN 6 06/04/2024 13:04:59 [facility] HEIGHT 68 06/04/2024 13:04:59 [facility] TEMPERATURE 98.3 06/04/2024 13:04:59 [facility] PULSE 51 06/04/2024 13:04:59 [facility] RESPIRATION 16 06/04/2024 13:04:59 [facility] Encounters Combined list of: 1) Encounters from [facility] facilities going backup to the last 18 months, not all [place] inpatient encounters are included; 2) Encounters from the [facility] facilities going backup to 280 months. Location Location Details Encounter Type Encounter Number Reason For Visit Attending Provider ADM Date DC Date Status Disposition Source [facility] Outpatient Encounter [id number] 01/29 [facility] Outpatient Encounter [id number] SHENG HAND 05/28 [facility] OFFICE O/P EST MOD 30 MIN [id number] Diagnos is: ICD-10- CM M54.50 Low back pain, unspeci fied Angela LAMAR ORY A 06/04 [facility] N [facility] Outpatient Encounter [id number] 06/09 [facility] N [facility] Outpatient Encounter [id number] 06/10 [facility] N [facility] Outpatient Encounter [id number] 06/25 [facility] Outpatient Encounter [id number] 07/21 [facility] Outpatient Encounter [id number] 07[facility]29 [facility] Social History Combined list of available smoking, tobacco, and other social history from [facility] facilities. Social History Type Response Date Comment Source Tobacco smoking status NJIS PR-TOBACCO USE EVERY DAY CIGARETTES 06/04/2024 [facility] OTHER [facility] 06/04/2024 [facility] History of tobacco use CURRENT NON-TOBACCO USER-HX OF USE 02/27/2001 quit 4 yrs. ago. [facility] History of tobacco use PREVIOUS SMOKER 07/31/2000 [facility] History of tobacco use PREVIOUS SMOKER 04/18/2000 [facility] Plan of Care List of future care activities from [facility] facilities. Additional future care activities may be listed in the Assessment and Plan section. Date/Time Care Activity Care Activity Detail Facili ty 09/04/2024 AMBULATORY - PSYCHIATRY AMBULATORY - PSYC HIATRY [facility] 09/30/2024 AMBULATORY - MEDICINE AMBULATORY - MEDICI NE [facility] 07/21/2024 Consult Order COMMUNITY CARE-S TL BH MED MANAGE Cons Ripening Room Hand's Choice [facility] 07/29/2024 Consult Order COMMUNITY CARE-S TL SLEEP STUDY Cons Ripening Room Hand's [facility] Advance Directives List of completed, amended, or rescinded Advance Directives on record at [facility] facilities. An actual copy of the Directive is not included. Date Advance Directive Provider Source 04/02/2000 ADVANCE DIRECTIVE MARQUISE CANALES [facility]
--- NOTE | 2024-08-26 12:50 | WPDPFTINT ---
PFT Procedure Performed PFT Procedure Performed Spirometry with Pre/Post Bronchodilator Plethysmography (Lung Vol) Diffusing Cap (DLCO) Flow Vol Loop PFT Interpretation DOS: 08/26/2024 REQUESTING: Roddy Amaya MD REASON FOR TESTING: COPD PULMONARY FUNCTION TESTS Results are reliable and reproducible. Repeatability of spirometry FEV1 maneuver pre and post bronchodilator is Grade A. Cleopatra Cotton Dust reference equations were used. The patient told the geothermal technician that he had exposures to multiple respiratory irritants when he was in the [place]. Spirometry: The pre-bronchodilator FEV1 is 3.71 L, 94%. The pre-bronchodilator FVC is 2.74 L, 88%. The FEV1/FVC ratio is 74%. After bronchodilator, the FEV1 is 2.76 L, 89%. After bronchodilator, the FVC is 3.86 L, 97% +4%. The FEV1/FVC ratio is 72% after bronchodilator. These are all normal values. There is no significant response to bronchodilator. Lung volumes: The total lung capacity is 5.95 L, 97%. The residual volume is 2.25 L, 99%. The RV/TLC is 38%. Airway resistance is increased. Diffusion: DLCO is 15.8, 63%, mildly reduced. The DLCO/VA is 3.39, 90%, normal. Flow volume loop: The flow volume loop shows a normal pattern. IMPRESSION: This study shows normal spirometry without response to bronchodilator, normal lung volumes, and normal diffusion. No prior studies for comparison. Sherrill Bolivar MD
== END 2024-08-26 08:40 | disposition home or self-care (01) ==
PROVIDERS: PCP Family Medicine; Visit Provider Family Medicine
DX: J44.9 Chronic obstructive pulmonary disease, unspecified (principal)
CPT/HCPCS: 94060; 94726; 94729

== ENCOUNTER 2024-11-09 12:32 | Outpatient (CLI) | payer MEDICARE, SELFPAY ==
--- NOTE | ~2024-11-09 | CT_ITS ---
CT Scan of the Chest without Contrast: Clinical Indication: Lung cancer screening, nicotine dependence Technique: Contiguous sections were acquired throughout the chest without intravenous contrast. Dose reduction technique was used on this scan by utilizing automated exposure control and iterative recon struction technique. The dose-length product (DLP) was 243.19 mGy-cm. Findings: There is no evidence of any significant mediastinal, hilar or axillary lymphadenopathy. Coronary xander ry calcifications are present. There is no evidence of pleural or pericardial effusion. Small calcified right upper lobe granuloma present. 4 mm pleural-based nodule right middle lobe noted (axial image 69).. Mild emphysema present. Images through the upper abdomen reveal no abnormalities. Impression: Lung RADS 2: Benign appearance. 12 month follow-up screening CT advised. Reviewed, dictated and finalized at [facility]. Impression: Lung RADS 2: Benign appearance. 12 month follow-up screening CT advised.
--- OUTSIDE RECORDS SUMMARY | 2024-11-09 14:07 | XMS_ITS | Encounter Summary ---
Author Organization [facility] Address [address] [place] [address] Care Team Providers Care Production Truck Driver Name Role Phone Dejan Nation MD Primary Care Provider [phone] Julita Naylor MD Unavailable Charles Paz MD Unavailable [phone] Encounter Details Date Type Department Care Team (Late st Contact Info) Description 11/20/2022 QPDhart Message Enc [facility] [address], [facility] 1 [place] [address] Charles Paz MD [address] [place] [address] Visit Follow Up Social History Tobacco Use [...] on filedocumented in this encounter Care Teams Production Truck Driver Relationship Specialty Start Date End Date Dejan Nation MD [address] [address] [address] [place] [address] PCP - General FAMILY PRACTICE 11/20/22 Julita Naylor MD [address] [place] [address] Consulting Physician CARDIOVASCULAR DISEASE 12/25/22 Charles Paz MD [address] [place] [address] ORTHOPAEDIC SURGERY 12/25/22 documented as of this encounter
--- OUTSIDE RECORDS SUMMARY | 2024-11-09 14:07 | XMS_ITS | Encounter Summary ---
Author Organization [facility] Address [address] [place] [address] Care Team Providers Care Surgical Assistant Certified Name Role Phone Dejan Nation MD Primary Care Provider [phone] Julita Naylor MD Unavailable Charles Paz MD Unavailable [phone] Encounter Details Date Type Department Care Team (Late st Contact Info) Description 01/03/2023 [employer] Message Enc [facility] ield [address] [place] [address] Julita Naylor MD [address] [place], [place] [address] Dejan Paulette Social History Tobacco Use Types [...] How often do you attend chur or yarsani services? More than 4 times per year 01/07/2023 Do you belong to any clubs o r organizations such as holiness groups, unions, fraternal or athletic groups, or [...] medical care, and heating? Somewhat hard 01/07/2023 [facility] of Occupat ional Health - Occupational Stress [...] place to sleep or slept in a care home (including now)? No 01/07/2023 Sex and Gender [...] on filedocumented in this encounter Care Teams Surgical Assistant Certified Relationship Specialty Start Date End Date Dejan Nation MD [address] [place] [address] [address] [place] [address] PCP - General FAMILY PRACTICE 11/20/22 Julita Naylor MD [address] [place] [address] Consulting Physician CARDIOVASCULAR DISEASE 12/25/22 Charles aPz MD [address] [place] [address] ORTHOPAEDIC SURGERY 12/25/22 documented as of this encounter
--- OUTSIDE RECORDS SUMMARY | 2024-11-09 14:07 | XMS_ITS | Encounter Summary ---
Author Organization [facility] Address [facility] [place] [address] Care Team Providers Care Diesel Engine Assembler Name Role Phone None, Provider Primary Care Provider Unavaila Dejan Maya MD Primary Care Provider [phone] Julita Naylor MD Unavailable Charles Paz MD Unavailable [phone] Encounter Details Date Type Department Care Team (Late st Contact Info) Description 12/20/2018 Abstract [facility] [address] [place] [address] , Generic Conversion, Social History Tobacco Use [...] on filedocumented in this encounter Care Teams Diesel Engine Assembler Relationship Specialty Start Date End Date None, Provider, PCP - General 09/13/18 11/19/22 Dejan Nation MD [address] [address] [address] [place] [address] PCP - General FAMILY PRACTICE 11/20/22 Julita Naylor MD [address] [place] [address] Consulting Physician CARDIOVASCULAR DISEASE 12/25/22 Charles Paz MD [address] [place] [address] ORTHOPAEDIC SURGERY 12/25/22 documented as of this encounter
--- OUTSIDE RECORDS SUMMARY | 2024-11-09 14:07 | XMS_ITS | Encounter Summary ---
Author Organization [facility] Address [facility] [place] [address] Care Team Providers Care Submersible Pilot Name Role Phone Dejan Nation MD Primary Care Provider [phone] Julita Naylor MD Unavailable Charles Paz MD Unavailable [phone] Reason for Visit * Reason Onset Date Comments Question 08/13/2024 Encounter Details Date Type Department Care Team (Late st Contact Info) Description 08/13/2024 Telephone [facility] DEFAULT None, Provider, MD Question Social [...] How often do you attend chur or voodoo services? More than 4 times per year 01/07/2023 Do you belong to any clubs o r organizations such as mormonism groups, unions, fraternal or athletic groups, or [...] medical care, and heating? Somewhat hard 01/07/2023 [facility] of Occupat ional Health - Occupational Stress [...] place to sleep or slept in a correction (including now)? No 01/07/2023 Sex and Gender [...] she said she spoke with Brittni in [place] and patient has appt this is not needed MOTIVE MACHINIST APPRENTICE * Teresa Cowan - 08/13/2024 2:12 PM CST Caller name: Thea Facility name: [facility] Call back/ext. #: [phone] option 3 MyChart: No- caller prefers to be called via telephone Call details: They would like to know Dr. Prather's first available for sleep apnea MOTIVE MACHINIST APPRENTICE documented in this encounter Plan of Treatment Not on file documented as of this encounter Visit Diagnoses Not on filedocumented in this encounter Care Teams Submersible Pilot Relationship Specialty Start Date End Date Dejan Nation MD [address] [address] [address] [place] [address] PCP - General FAMILY PRACTICE 11/20/22 Julita Naylor MD [address] [place] [address] Consulting Physician CARDIOVASCULAR DISEASE 12/25/22 Charles Paz MD [address] [place] [address] ORTHOPAEDIC SURGERY 12/25/22 documented as of this encounter
--- OUTSIDE RECORDS SUMMARY | 2024-11-09 14:07 | XMS_ITS | Clinical Summary ---
Author Organization [facility] Address [address] [facility] [place] [address] Care Team Providers Care Story Teller Name Role Phone Dejan Nation MD Primary Care Provider Social History Tobacco Use Types Packs/Day Years Used Date Smoking Tobacco: Never Assessed Sex and Gender Information Value Date Recorded Sex Assigned at Not on file Legal Sex Male 10:21 AM [employer] Gender Identity Not on file Sexual Orientation Not on file Plan of Treatment Health Maintenance Due Date Last Done Comments Hepatitis C Virus (HCV) Screening 1960 TdaP Immunization 1961 Colonoscopy 2006 Colorectal Cancer Screening 2006 Cologuard 10/03/2011 Immunochemical Fecal Occult Blood 10/03/2011 Zoster Immunization (1 of 2) 10/03/2011 PSA Discussion 2016 Pneumococcal Immunization (50+ years) (2 of 2 - PPSV23) 06/14/2022 06/14/2021 Influenza Immunization (#1) 03/15/202404/15, 05/26/2022, 06/14/2021, [...] this topic Insurance MEDICARE ADMIN Care Teams Story Teller Relationship Specialty Start Date End Date Dejan Nation MD [address] [address] PCP - General Family Medicine 09/02/23
--- OUTSIDE RECORDS SUMMARY | 2024-11-09 14:07 | XMS_ITS | Clinical Summary ---
Author Organization [facility] Address [facility] [place] [address] Care Team Providers Care Faculty Administrator Name Role Phone Dejan Nation MD Primary Care Provider [phone] Julita Naylor MD Unavailable Charles Paz MD Unavailable [phone] Allergies Active Allergy Reactions Criticality Noted [...] Department Care Team Description 08/21/2024 Transcribe Orders [facility] Pre Access Team [address] [place] [address] Roddy Amaya MD 08/13/2024 Telephone [facility] DEFAULT None, Provider, Question from Last 3 Months Immunizations Immunization Administration Dates Next Due MODERNA COVID-19 (12+) [...] How often do you attend chur or jewish services? More than 4 times per year 01/07/2023 Do you belong to any clubs o r organizations such as congregation groups, unions, fraternal or athletic groups, or [...] medical care, and heating? Somewhat hard 01/07/2023 [facility] of Occupat ional Health - Occupational Stress [...] 99.8 kg (220 lb) 08/20/2023 7:46 AM CASHIER GAMBLING Height 172.7 cm (5' 8 ) 08/20/2023 7:46 AM CASHIER GAMBLING Body Mass Index 33.45 08/20/2023 7:46 AM CASHIER GAMBLING Plan of Treatment Health Maintenance Due Date Last Done Comments Colorectal Cancer Screening Colonoscopy (10 Years) 1961 Annual Physical 1964 Hepatitis C 10/03/1979 DTaP, Tdap and Td Vaccines (1 - Tdap) 1980 Zoster Vaccines (1 of 2) 10/03/2011 Pneumococcal Vaccine: 50+ Years (2 of 2 - PPSV23) 08/09/2021 06/14/2021 COVID-19 Vaccine ( - season) 2024 07/19/2022, 06/05/2021, 10/12/2020, Additional history exists RSV Immunization or 60+ [...] this topic Medical Devices Implanted Type Area Rental Clerk Tool And Equipment Device Identifier Shelf Expiration Date Model / Serial / Lot Cement Simplex Hv W/Gentamicin - [id number] Implanted:Qty : 1 on 01/07/2023 by Charles Paz MD at [facility] Cement Implant Left: Knee [employer] - DIV [employer]MAR ISSAC [id number] 03/14/2024 6195-1-010 / / [id number] Cement Simplex Hv W/Gentamicin - [id number] Implanted:Qty : 1 on 01/07/2023 by Charles Paz MD at [facility] Cement Implant Left: Knee [employer] DIV [employer] [id number] 03/14/2024 6195-1-010 / / [id number] Component Ptlr 32mm Medialize Dome Attune - [id number] Implanted:Qty : 1 on 01/07/2023 by Charles Paz MD at [facility] Patella Left: Knee [employer] - [employer] [id number] 10/13/2027 [id number] / / [id number] Attune Femoral Cruciate Retaining Implanted:Qty : 1 on 01/07/2023 by Charles Paz MD at [facility] Left: Knee [id number] 08/14/2032 [id number] / / [id number] Attune Knee System Tibial Base Rotating Platform Implanted:Qty : 1 on 01/07/2023 by Charles Paz MD at [facility] Left: Knee [id number] 10/12/2032 [id number] / / [id number] Attune Tibial Insert Platform Cruciate Retaining Implanted:Qty : 1 on 01/07/2023 by Charles Paz MD at [facility] Left: Knee [id number] 12/12/2025 [id number] / / [id number] Insurance MEDICARE Advance Directives * Full Code (Latest Code Status on File) Date Activated Date Inactivated Comments 01/07/2023 1:46 PM 01/08/2023 12:55 PM Care Teams Faculty Administrator Relationship Specialty Start Date End Date Dejan Nation MD [address] [address] [address] [place] [address] PCP - General FAMILY PRACTICE 11/20/22 Julita Naylor MD [address] [place] [address] Consulting Physician CARDIOVASCULAR DISEASE 12/25/22 Charles Paz MD [address] [place] [address] ORTHOPAEDIC SURGERY 12/25/22
--- OUTSIDE RECORDS SUMMARY | 2024-11-09 14:07 | XMS_ITS | Encounter Summary ---
Author Organization [facility] Address [facility] [place] [address] Care Team Providers Care Concrete Batching Plant Operator Name Role Phone Dejan Nation MD Primary Care Provider [phone] Julita Naylor MD Unavailable Charles Paz MD Unavailable [phone] Encounter Details Date Type Department Care Team (Late st Contact Info) Description 06/28/2023 [employer] Message Enc [facility] [address], [facility] 1 [place] [address] Charles Paz MD [address] [place] [address] Visit Follow Up Social History Tobacco Use [...] How often do you attend chur or methodist services? More than 4 times per year 01/07/2023 Do you belong to any clubs o r organizations such as taoism groups, unions, fraternal or athletic groups, or [...] medical care, and heating? Somewhat hard 01/07/2023 [facility] of Occupat ional Health - [...] place to sleep or slept in a halfway (including now)? No 01/07/2023 Sex and Gender [...] on filedocumented in this encounter Care Teams Concrete Batching Plant Operator Relationship Specialty Start Date End Date Dejan Nation MD [address] [place] [address] [address] [place] [address] PCP - General FAMILY PRACTICE 11/20/22 Julita Naylor MD [address] [place] [address] Consulting Physician CARDIOVASCULAR DISEASE 12/25/22 Charles Paz MD [address] [place] [address] ORTHOPAEDIC SURGERY 12/25/22 documented as of this encounter
--- OUTSIDE RECORDS SUMMARY | 2024-11-09 14:07 | XMS_ITS | Continuity of Care Document ---
Author Name [facility] Organization [facility] Care Team Providers Care Mill House Supervisor Name Role Phone [facility] Unavailable Unavailable Problems Combined list of problems from Department of [facility] and [facility] facilities. It does not include entries that were removed or entered in error. Problem Status Onset Date Problem Type Date of Resolution Comments Source BACKACHE NOS Active Condition [facility] CHRONIC SINUSITIS NOS Active Condition [facility] Headache Active Condition Mar 14 Entered By: MARIA ISABEL ADAMS Comment: Complicated by analgesic rebound due to Midrin and tylenol u [facility] HYPERSOMNI W SLEEP APNEA Active Condition [facility] IDIO PERIPH NEURPTHY NEC Active Condition [facility] LBP - Low back pain (SNOMED CT [id number]) Active Condition [facility] PAIN IN LIMB Active Condition [facility] PROLONG POSTTRAUM STRESS Active Condition [facility] Diagnosis: ICD-10-CM M54.50 Low back pain, unspecified Active Diagnosis [facility] Medications Combined list of outpatient medications from [facility] and [facility] facilities.Medications provided include 1) outpatient medications from the last 15 months, and 2) patient-reported medications. Medication Details Route Status Patient Instructions Prescription Expires Prescription Number Last Dispense Date Ordering Provider Order Date Order Qty Source DESVENLAFAX INE (EQV-PRISTI Q) 25MG TAB,SA TAKE ONE TABLET BY MOUTH ONCE A DAY ORAL ACTIVE 09/07/2025 [id number] 5 SA VIV GEE 2024 30 [facility] ESCITALOPRA M OXALATE 20MG TAB TAKE ONE TABLET BY MOUTH ONCE A DAY ORAL ACTIVE 01/12/2025 [id number] 5 ALMA ROSA MORRIS MD 2024 90 [facility] PRAZOSIN HCL 1MG CAP TAKE ONE CAPSULE BY MOUTH AT BEDTIME FOR PTSD MAY CAUSE DIZZINES S OR DROWSINE SS. ORAL ACTIVE 09/07/2025 [id number] 5 SA MARLEN MANTHA K 2024 90 [facility] PRAZOSIN HCL 1MG CAP TAKE ONE CAPSULE BY MOUTH AT BEDTIME FOR PTSD MAY CAUSE DIZZINES S OR DROWSINE SS. ORAL DISCONT INUED 09/07/2025 [id number] 5 SA MARLEN MANTHA K 2024 30 [facility] N QUETIAPINE FUMARATE 50MG TAB TAKE ONE TABLET BY MOUTH ONCE A DAY ORAL ACTIVE 01/12/2025 [id number] 5 ALMA ROSA MORRIS MD 2024 90 [facility] N Immunizations Combined list of available immunizations from the Department of Defense and Veterans Affairs facilities. Immunization Series Date Given Administered By Site Reaction Lot Number CVX Code Drug Woods Rider Status Comments Source INFLUENZA, UNSPECIFIED FORMULATION 2004 88 complet ed [facility] Vital Signs Combined list of inpatient and outpatient Vital Signs from Department of [facility] and [facility] Affairs, ranging from 12 months to all on record, depending upon the facility. Vital Sign Value Date Comments Source SYSTOLIC BLOOD PRESSURE 150 06/04/2024 13:04:59 [facility] DIASTOLIC BLOOD PRESSURE 81 06/04/2024 13:04:59 [facility] PULSE OXIMETRY 96 06/04/2024 13:04:59 [facility] WEIGHT 228 06/04/2024 13:04:59 [facility] BMI 35 kg/m2 06/04/2024 13:04:59 [facility] PAIN 6 06/04/2024 13:04:59 [facility] HEIGHT 68 06/04/2024 13:04:59 [facility] TEMPERATURE 98.3 06/04/2024 13:04:59 [facility] PULSE 51 06/04/2024 13:04:59 [facility] RESPIRATION 16 06/04/2024 13:04:[address] [facility] Encounters Combined list of: 1) Encounters from Department of [facility] facilities going backup to the last 18 months, not all [place] inpatient encounters are included; 2) Encounters from the Department of [facility] facilities going backup to 280 months. Location Location Details Encounter Type Encounter Number Reason For Visit Attending Provider ADM Date DC Date Status Disposition Source [facility] Outpatient Encounter [id number] 01/29 [facility] Outpatient Encounter [id number] SHENG HAND 05/28 [facility] OFFICE O/P EST MOD 30 MIN [id number] Diagnos is: ICD-10- CM M54.50 Low back pain, unspeci fied WILLARD,C ORY A 06/04 [facility] Outpatient Encounter [id number] 06/09 [facility] Outpatient Encounter [id number] 06/10 [facility] Outpatient Encounter [id number] 06/25 [facility] Outpatient Encounter [id number] 07/21 [facility] Outpatient Encounter [id number] 07/29 [facility] Outpatient Encounter [id number] 09/02 [facility] Outpatient Encounter [id number] [place] [address] R 09/07 [facility] Outpatient Encounter [id number] 09/15 [facility] Social History Combined list of available smoking, tobacco, and other social history from Department of Defense and Veterans Affairs facilities. Social History Type Response Date Comment Source Tobacco smoking status [facility] USE EVERY DAY CIGARETTES 06/04/[address] [facility] of [facility] OTHER TYPE 06/04/[address] [facility] History of tobacco use CURRENT NON-TOBACCO USER-HX OF USE 02/27/2001 quit 4 yrs. ago. [facility] History of tobacco use PREVIOUS SMOKER 07/31/[address] [facility] History of tobacco use PREVIOUS SMOKER 04/18/[address] [facility] Advance Directives List of completed, amended, or rescinded Advance Directives on record at Department of [facility] facilities. An actual copy of the Directive is not included. Date Advance Directive Provider Source 04/02/2000 ADVANCE DIRECTIVE MARQUISE CANALES [facility]
--- OUTSIDE RECORDS SUMMARY | 2024-11-09 14:07 | XMS_ITS | Encounter Summary ---
Author Organization [facility] Address [facility] [place] [address] Care Team Providers Care Work Over Rig Operator Name Role Phone Dejan Nation MD Primary Care Provider [phone] Julita Naylor MD Unavailable Charles Paz MD Unavailable [phone] Encounter Details Date Type Department Care Team (Late st Contact Info) Description 12/31/2022 Time Warden Message Enc [facility] ield [address] [place] [address] Julita Naylor MD [address] [place], [place] [address] Dejan Paulette Social History Tobacco Use Types [...] on filedocumented in this encounter Care Teams Work Over Rig Operator Relationship Specialty Start Date End Date Dejan Nation MD [address] [facility] [address] [place] [address] PCP - General FAMILY PRACTICE 11/20/22 Julita Naylor MD [address] [place] [address] Consulting Physician CARDIOVASCULAR DISEASE 12/25/22 Charles Paz MD [address] [place] [address] ORTHOPAEDIC SURGERY 12/25/22 documented as of this encounter
--- OUTSIDE RECORDS SUMMARY | 2024-11-09 14:07 | XMS_ITS | Continuity of Care Document ---
Author Organization [facility] Address [address] [place] [address] Phone Care Team Providers Care Manufacturing Analyst Name Role Phone Alaina Velasco Unavailable Unavailable Advance Directives Directive Yes / No Effective Date File Name No Information Encounters Encounter Description Practice Location Reason(s) For Visit Diagnoses Date Provider Providers Copied on Encounter [facility], [address], [place], [place], [id number], [place] tel:[phone] [facility] [place] No Information Sep- 7-200 5 Krista Foley. [address] [facility] , [address], [place], [address], [place]. tel:[phone] Referring Provider: Dejan Nation MD, [address] [place] [address], [place], [address]. tel:[phone] Family History Family Member Type Diagnosis Age At Onset No Information Payers Payer name Insurance type Covered green party ID Authoriza tiangelique(s) IDOT [id number] Social History Type Description Quantity Date Captured [...]
--- OUTSIDE RECORDS SUMMARY | 2024-11-09 14:07 | XMS_ITS | Encounter Summary ---
Author Organization [facility] Address [facility] [place] [address] Care Team Providers Care Director Of Scout Work Name Role Phone Dejan Natoin MD Primary Care Provider [phone] Julita Naylor MD Unavailable Charles Paz MD Unavailable [phone] Encounter Details Date Type Department Care Team (Late st Contact Info) Description 01/09/2023 [place] Message Enc [facility] [address], [facility] [address] [place] [address] Charles Paz MD [address] [place] [id number] Dejan Paulette Social History Tobacco Use Types [...] How often do you attend chur or latter-day services? More than 4 times per year 01/07/2023 Do you belong to any clubs o r organizations such as synagogue groups, unions, fraternal or athletic groups, or [...] place to sleep or slept in a long term (including now)? No 01/07/2023 Sex and Gender [...] on filedocumented in this encounter Care Teams Director Of Scout Work Relationship Specialty Start Date End Date Dejan Nation MD [address] [place] [address] [address] [place] [address] PCP - General FAMILY PRACTICE 11/20/22 Julita Naylor MD [address] [place] [address] Consulting Physician CARDIOVASCULAR DISEASE 12/25/22 Charles Paz MD [address] [place] [address] ORTHOPAEDIC SURGERY 12/25/22 documented as of this encounter
== END 2024-11-09 12:33 | disposition home or self-care (01) ==
PROVIDERS: PCP Family Medicine; Visit Provider Family Medicine
DX: Z12.2 Encounter for screening for malignant neoplasm of respiratory organs (principal); Z87.891 Personal history of nicotine dependence
CPT/HCPCS: 71271

== ENCOUNTER 2025-02-19 19:07 | Emergency (ER) | payer MEDICARE, OTHER, SELFPAY ==
--- NOTE | ~2025-02-19 | CT_ITS ---
CLINICAL INDICATION: Swelling after injury . COMPARISON: None. TECHNIQUE: Computed tomography (CT) of the left hand was performed without intravenous contrast. The dose-length product was 524.48 mGy-cm. FINDINGS/OBSERVATIONS: No acute or subacute fracture is present. Soft tissue swelling is noted. Unable to discern the presence or absence of a rim-enhancing fluid collection (suggesting abscess for mation) without intravenous contrast. IMPRESSION: Soft tissue swelling without additional abnormality. Reviewed, dictated and finalized at location A.
--- NOTE | 2025-02-19 19:09 | ED.WOUNDLAC ---
HPI - Wound/Laceration General Chief Complaint: Wound/Laceration Stated Complaint: Injury to Thumb Time Seen by Provider: 02/19/25 19:09 Source: patient Mode of arrival: ambulatory Limitations: no limitations History of Present Illness HPI narrative: Patient is a 64 year old male with a left thumb chainsaw injury 2 days ago. He cut his thumb in 2 separate areas. Linear lacerations. He has not seen a doctor until today. Tetanus shot up-to-date in the past 5 years. He is having difficulty with pain and movement of the left thumb without pain occurrence. The pain is extending into the left palm. Onset (ago): day(s) (2) Location: other ( left thumb) Extremity Location: Left: hand ( thumb) Place: outdoors Patient tetanus UTD: Yes Context: accidental Associated symptoms: pain and unable to move injured part ( minimal movement due to pain) Treatments prior to arrival: other ( none) Related Data Home Medications ?Medication ?Instructions ?Recorded ?Confirmed ?Last Taken ?Type cyanocobalamin (vitamin B-12) 1,000 mcg PO DAILY 07/20/21 10/26/24 09/24/23 History 1,000 mcg tablet cannabis BYMOUTH 01/30/23 10/26/24 Unknown History Allergies Allergy/AdvReac Type Severity Reaction Status Date / Time desvenlafaxine AdvReac Severe Other Verified 10/30/24 13:07 prazosin AdvReac Intermediate Unknown Verified 10/30/24 13:07 Review of Systems Review of Systems: All systems reviewed & are unremarkable except as noted in HPI and below Constitutional: Constitutional: Reports no additional constitutional complaints Eyes: Eyes: Reports no additional eye complaints ENT: Reports system reviewed and no additional complaints, except as documented Cardiovascular: Cardiovascular: Reports no additional cardiovascular complaints Respiratory: Respiratory: Reports no additional respiratory complaints Gastrointestinal: Gastrointestinal: Reports no additional gastrointestinal complaints Genitourinary: Genitourinary: Reports no additional male genitourinary complaints Musculoskeletal: Musculoskeletal: Reports no additional musculoskeletal complaints Integumentary/Breasts: Skin/Breast: Reports system reviewed and no additional complaints, except as docu Neurologic: Reports system reviewed and no additional complaints, except as documented Psychiatric: Psychiatric: Reports no additional psychiatric complaints Endocrine: Endocrine: Reports no additional endocrine complaints Hematologic/Lymphatic: Hematologic/Lymphatic: Reports no additional hematologic/lymphatic complaints Allergic/Immunologic: Allergic/Immunologic: Reports no additional allergic/immunologic complaints PMFSH Past Medical History Medical History Chronic low back pain with right-sided sciatica Migraine headache without aura Influenza A Pharyngitis Obesity (BMI 30-39.9) COVID-19 (~03/04/24) Laceration of thumb without complication (~02/22/24) At moderate risk for fall Chronic pain of left ankle Encounter for prostate cancer screening PSA 0.39 on 07/27/2022. PSA 0.38 on 07/18/2023. PSA 0.35 on 10/15/2024. Chronic low back pain without sciatica Bradycardia 3 day monitor with heart rate between 39 and 145 with no worrisome arrhythmias. No atrial fibrillation or atrial flutter or significant pauses on 12/27/2022. Convalescent Sitter appointment on 01/07/2023. Echocardiogram on 02/06/2023 with ejection fraction 55% with trace regurgitation of mitral valve, pulmonic valve, and tricuspid valve. BMI 34.0-34.9,adult Chronic pain of right ankle Chronic pain of left knee Total knee replacement 2022. Obesity (BMI 30.0-34.9) COPD (chronic obstructive pulmonary disease) normal PFT on 08/26/2024 with no bronchodilator effect. Acute non-recurrent maxillary sinusitis Heel pain, bilateral BMI 33.0-33.9,adult Folate deficiency anemia (07/19/21) level low at 3.9 on 07/19/2021. Level normal at 6.0 with hemoglobin 14.4 on 07/27/2022. Level low at 4.7 with hemoglobin 14.1 on 07/18/2023. Level normal at 18.1 on 10/18/2023. level normal at 14.2 with hemoglobin 14.5 on 10/15/2024. Vitamin B12 deficiency anemia (07/19/21) B12 low at 358 with goal greater than 400 on 07/19/2021. Level low at 353 with hemoglobin 14.4 on 07/27/2022. Level low at 178 with hemoglobin 14.1 on 07/18/2023. Level normal at 664 on 10/18/2023. Level normal at 682 with hemoglobin 14.5 on 10/15/2024 Wart wart on left breast BMI 36.0-36.9,adult Plant allergic contact dermatitis Nocturia PSA 0.28 on 07/19/2021. PSA 0.39 on 07/27/2022. PSA 0.38, 2023. PSA 0.35 on 10/15/2024. Mixed hyperlipidemia total cholesterol 282, HDL 37, triglycerides 480 on 06/16/2019. Total cholesterol 204, triglycerides 203, HDL 47, LDL 125 on 07/19/2021. Total cholesterol 212, triglycerides 234, HDL 48, LDL 126 with ratio of 4.4 on 07/27/2022. Cholesterol 188, triglycerides 189, HDL 42, LDL 116 with ratio 4.5 on 07/18/2023.Cholesterol 206, triglycerides 150, HDL 47, LDL 133 with ratio 4.4 on 10/15/2024. Parkinsons disease Normal exam 07/19/2022. Surgical History Surgical History History of foot surgery History of left knee replacement Family History Family History Mother Acute myocardial infarction Cerebrovascular accident Father Carcinoma of colon Social History Social History Smoking packs per day: 1 Smoking cigarettes per day: 20.0 Years smoked: 19 Smoking pack-years: 19.00 Smoking status: Current every day smoker Tobacco type: cigarettes Second hand tobacco smoke exposure: Yes Alcohol intake: former Substance use: current Substance use type: marijuana Other substance usage details: medical marijuana Current Housing: Decline to Answer Concerned About Future Housing: Decline to Answer Difficulty Paying Gas/Electric Bills: Decline to Answer Difficulty Paying for Meds: Decline to Answer Currently Unemployed: Decline to Answer Education: Decline to Answer Difficulty w/ Childcare or Family Care: Decline to Answer Living arrangements: with family Occupation/Education: retired 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 Gender identity (if verbalized by the patient): Male Spiritual care concerns: No Exam Const: General: healthy appearing Nutritional Appearance: well nourished Orientation/consciousness: patient oriented x3 HENMT: Head: normal to inspection Ears: external ears normal Face/Nose/Sinus: Normal external nose present Eyes: Conjunctivae: conjunctivae normal Pupils: Equal, round and reactive pupils present EOM: EOMs intact bilaterally Neck: Neck: normal visual inspection Chest: Chest palpation & inspection: normal inspection of the chest Resp: Effort & Inspection: normal respiratory effort and not labored Auscultation: clear to auscultation bilaterally and no crackles Cardio: Rate: regular rate Rhythm: regular rhythm Heart sounds: no murmurs GI: Inspection: non-distended GI Palp: Yes Soft to palpation and No Tenderness to palpation present (GI) Auscultation: normal bowel sounds Back/Spine/Pelvis: Back: no CVA tenderness Skin: General skin exam: normal color Rashes: no rashes Wounds: wound noted Other: left thumb extensor surface has 2 distinct linear lacerations that are 2-day-old with slight crusting and pus and erythema around the wounds which extend to the palm and extensor surface mid hand; each lesion is about 1 cm each; difficulty to move the left thumb due to pain Neuro: General: patient oriented x3 and moves all extremities Cranial nerves: Yes Nystagmus not present Speech: normal speech Extrem: General: normal to inspection Psych: Mental Status: mental status grossly normal Affect: normal affect Attitude: cooperative Course Vital Signs Vital signs: Vital Signs Temperature 36.5 C 02/19/25 19:10 Pulse Rate 74 02/19/25 19:10 Respiratory Rate 20 02/19/25 19:10 Blood Pressure 157/86 H 02/19/25 19:10 Pulse Oximetry 97 02/19/25 19:10 Oxygen Delivery Room Air 02/19/25 19:10 Temperature 36.5 C 02/19/25 19:10 Pulse Rate 89 02/19/25 21:58 Respiratory Rate 20 02/19/25 21:58 Blood Pressure 133/74 02/19/25 21:58 Pulse Oximetry 100 02/19/25 21:58 Oxygen Delivery Room Air 02/19/25 21:58 MDM - Wound/Laceration MDM Narrative Medical decision making narrative: patient is a 64-year-old male with a left thumb chainsaw injury 2 days ago having difficulty due to pain and infection type changes. We will do CT scan of the hand. Tetanus up-to-date. Antibiotics. We will start with IM today. Imaging Data Attestation: I personally reviewed and interpreted this imaging study as follows: Radiologist's impression: CT scan of the left hand is negative for acute process Discharge Plan Discharge Clinical Impression: Contact with chainsaw as cause of accidental injury Patient Disposition: Home Condition: Stable Instructions: Antibiotic Form, Puncture Wound (ED) Patient Language: Citizen Of [place] Prescriptions: New amoxicillin-pot clavulanate 875-125 mg tablet 1 tablet PO BID 10 Days Qty: 20 0RF No Action cannabis BYMOUTH buspirone 15 mg tablet 15 mg PO BID Qty: 60 11RF valacyclovir 1 gram tablet 2,000 mg PO BID PRN (Reason: fever blister) Qty: 30 5RF cyanocobalamin (vitamin B-12) 1,000 mcg tablet 1,000 mcg PO DAILY albuterol sulfate [Ventolin HFA] 90 mcg/actuation HFA aerosol inhaler 2 puff inhalation Q4H PRN (Reason: shortness of breath or wheezing) Qty: 18 11RF folic acid 1 mg tablet 1 mg PO DAILY Qty: 90 3RF quetiapine [Seroquel] 50 mg tablet 50 mg PO DAILY Qty: 90 3RF atorvastatin 40 mg tablet 40 mg PO DAILY Qty: 90 3RF bupropion HCl [Wellbutrin XL] 150 mg tablet extended release 24 hr 150 mg PO QAM Qty: 90 3RF escitalopram oxalate [Lexapro] 20 mg tablet 20 mg PO . Q.a.m. Qty: 90 3RF fenofibrate 160 mg tablet 160 mg PO DAILY Qty: 90 3RF metformin 500 mg tablet extended release 24 hr 500 mg PO QPM Qty: 90 3RF fluticasone propion-salmeterol [Wixela Inhub] 100-50 mcg/dose blister with device 1 inh inhalation BID Qty: 60 11RF hydrocodone-acetaminophen 7.5-325 mg tablet 1 tablet PO Q6H PRN (Reason: pain) Qty: 120 0RF Follow-up/Referrals: Dejan Nation MD [Primary Care Provider] - Time of Disposition: 22:36
[2025-02-19 19:10] VITALS: BP 157/86; PULSE 74; RESP 20; TEMP 36.5; O2SAT 97
--- OUTSIDE RECORDS SUMMARY | 2025-02-19 19:10 | XMS_ITS | Encounter Summary ---
Author Name [facility] Organization [facility] [place] [facility] [place] Address [address] [place] [address] Care Team Providers Care Coordinator Of Genetic Services Name Role Phone ERNST LAMAR Primary Care [...] PART A Mar 15, 2007 PART A [id number] Nereida WEINSTEIN PATIENT MEDICARE (WNR) MEDICARE (M) PART B Mar 15, 2007 PART B [id number] Nereida WEINSTEIN PATIENT Selected Encounter This section includes the information on record at [place] for the Encounter. Date/Time Encounter Type Encounter Description Reason Provider Source Jan 07, 2025 04:34 PM Outpatient Encounter ADMIN PAT ACTIVTIES (MASNONCT) OPAL BRENNAN Encounter Template Text not used by VA Advance Directives: All historical and current Section Date Range: From patient's date of to the date document was created. This section includes ALL of a patient's completed or amended VA Advance and Rescinded Directives. The entries below indicate that a directive exists for the patient, but an actual copy is not included with this document. The data comes from all [place] facilities. Date Advance Directives Provider Source Apr 02, 2000 ADVANCE DIRECTIVE MARQUISE CANALES [facility] Encounter Notes: All associated encounter notes This section contains the clinical notes associated to the Encounter. Date/Time Encounter Note(s) Provider Source Jan 07, 2025 04:34 PM PHARMACY MEDICATIO N MGT DISCHARGE NOTE: LOCAL TITLE: PHARMACY COMMUNITY CARE PRESCRIPTION PROCESSING NOT STANDARD TITLE: PHARMACY MEDICATION MGT DISCHARGE NOTE DATE OF NOTE: JAN 07, 2025@16:34 ENTRY DATE: JAN 07, 2025@16:34:55 AUTHOR: OPAL BRENNAN [facility] EXP COSIGNER: URGENCY: STATUS: COMPLETED Pharmacy service received prescription(s) via: Fax ELIGIBILITY: [facility] ([facility]) eligibility has been verified and/or is documented. PRESCRIPTION INFORMATION: Provider Information:Curt Craft (maiden name: curt Gilbert), 1) seroquel DISPOSITION: The medication(s) prescribed is/are formulary without criteria for use or other restrictions, and will be dispensed to the patient. /ignacio/ OPAL BRENNAN PharmD Community Care Pharmacist, Pharmacy Signed: 01/07/2025 16:35 OPAL BRENNAN [facility]
--- OUTSIDE RECORDS SUMMARY | 2025-02-19 19:11 | XMS_ITS | Encounter Summary ---
Author Organization [facility] [place] [address] Care Team Providers Care Associate Professor Of Theatre Name Role Phone Dejan Nation MD Primary Care Provider [phone] Julita Naylor MD Unavailable Charles Paz MD Unavailable [phone] Reason for Visit * Reason Onset Date Comments Question 08/13/2024 Encounter Details Date Type Department Care Team (Late st Contact Info) Description 08/13/2024 Telephone [facility] DEFAULT None, Provider, MD Question Social [...] medical care, and heating? Somewhat hard 01/07/2023 [facility] - Occupational [...] place to sleep or slept in a half-way (including now)? No 01/07/2023 Sex and Gender [...] she said she spoke with Brittni in [place] and patient has appt this is not needed MECHANIC * Teresa Cowan - 08/13/2024 2:12 PM CST Caller name: Thea Facility name: [facility] Call back/ext. #: [phone] option 3 MyChart: No- caller prefers to be called via telephone Call details: They would like to know Dr. Prather's first available for sleep apnea MECHANIC documented in this encounter Plan of Treatment Not on file documented as of this encounter Visit Diagnoses Not on filedocumented in this encounter Care Teams Associate Professor Of Theatre Relationship Specialty Start Date End Date Dejan Nation MD [address] [address] [address] [place] [address] PCP - General FAMILY PRACTICE 11/20/22 Julita Naylor MD [address] [place] [address] Consulting Physician CARDIOVASCULAR DISEASE 12/25/22 Charles Paz MD [address] [place] [address] ORTHOPAEDIC SURGERY 12/25/22 documented as of this encounter
--- OUTSIDE RECORDS SUMMARY | 2025-02-19 19:11 | XMS_ITS | Clinical Summary ---
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 Gender Identity Not on file Sexual Orientation Not on file Plan of Treatment Health Maintenance Due Date Last Done Comments Hepatitis C Virus (HCV) Screening 1961 TdaP Immunization 1961 Cologuard 2006 Colonoscopy 2006 Colorectal Cancer Screening 2006 Immunochemical Fecal Occult Blood 2006 Zoster Immunization (1 of 2) 10/03/2011 PSA Discussion 2016 Pneumococcal Immunization (50+ years) (2 of 2 - PCV20 or PCV21) 06/14/2022 06/14/2021 SARS-COV-2 Immunization ( season) 2024 07/19/2022, 06/05/2021, 10/12/2020, Additional history exists Influenza Immunization (#1) 03/15/202504/15, 05/26/2022, 06/14/2021, Additional history exists Pneumococcal Immunization Combined Discontinued 06/14/2021 Respiratory Syncytial Virus (RSV) Immunization (Adult) Completed 05/03/2023 Hepatitis B Immunization Aged Out No longer eligible based on patient's age to complete this topic Human Papillomavirus (HPV) Immunization Aged Out No longer eligible based on patient's age to complete this topic Meningococcal Immunization (ACWY) Aged Out No longer eligible based on patient's age to complete this topic Rotavirus Immunization Aged Out No lo nger eligible based on patient's age to complete this topic Insurance MEDICARE Care Teams Grave Digger Relationship Specialty Start Date End Date Dejan Nation MD [address] [address] PCP - General Family Medicine 09/02/23
--- OUTSIDE RECORDS SUMMARY | 2025-02-19 19:11 | XMS_ITS | Encounter Summary ---
Author Organization [facility] Address [facility] [place] [address] Care Team Providers Care Nutritionist Name Role Phone Dejan Nation MD Primary Care Provider [phone] Julita Naylor MD Unavailable Charles Paz MD Unavailable [phone] Encounter Details Date Type Department Care Team (Late st Contact Info) Description 12/31/2022 [facility] Message Enc [facility] [address] [place] [address] Julita Naylor MD [address] [place], [place] [address] Dejan Paulette Social History Tobacco Use Types [...] on filedocumented in this encounter Care Teams Nutritionist Relationship Specialty Start Date End Date Dejan Nation MD [address] [facility] [address] [place] [address] PCP - General FAMILY PRACTICE 11/20/22 Julita Naylor MD [address] [place] [address] Consulting Physician CARDIOVASCULAR DISEASE 12/25/22 Charles Paz MD [address] [place] [address] ORTHOPAEDIC SURGERY 12/25/22 documented as of this encounter
--- OUTSIDE RECORDS SUMMARY | 2025-02-19 19:11 | XMS_ITS | Patient Health Record ---
Author Organization [facility] Address [address] [place], [place] [address] Care Team Providers Care Pharmacy Coordinator Name Role Phone Teodora Rivas Unavailable Unavailable Reason For Referral No Information Plan Of Treatment No Information Insurance Providers Payer Name Payer Address Payer Phone Subscriber Number Group Number Insured Name Patient Relationship to Insured Coverage Start Date Coverage End Date Medicare Part B [place] [address] [place] [phone] [id number] JAMES WEINSTEIN Self - patient is the insured
--- OUTSIDE RECORDS SUMMARY | 2025-02-19 19:11 | XMS_ITS ---
Author Name [facility] Organization [facility] [place] Address [address] [place] [address] Care Team Providers Care Manager Monitoring Name Role Phone ERNST LAMAR Primary Care [...] PART A Mar 15, 2007 PART A [id number] Nereida WEINSTEIN PATIENT MEDICARE (WNR) MEDICARE (M) PART B Mar 15, 2007 PART B [id number] Nereida WEINSTEIN PATIENT Selected Encounter This section includes the information on record at [place] for the Encounter. Date/Time Encounter Type Encounter Description Reason Provider Source Jan 29, 2025 05:14 PM Outpatient Encounter ADMIN PAT ACTIVTIES (MASNONCT) [...] Apr 02, 2000 ADVANCE DIRECTIVE MARQUISE CANALES [facility] Encounter Notes: All associated encounter notes This section contains the clinical notes associated to the Encounter. Date/Time Encounter Note(s) Provider Source Jan 29, 2025 05:14 PM PHARMACY MEDICATIO N MGT DISCHARGE NOTE: LOCAL TITLE: PHARMACY COMMUNITY CARE PRESCRIPTION PROCESSING NOT STANDARD TITLE: PHARMACY MEDICATION MGT DISCHARGE NOTE DATE OF NOTE: JAN 29, 2025@17:14 ENTRY DATE: JAN 29, 2025@17:14:43 AUTHOR: OPAL BRENNAN [facility] EXP COSIGNER: URGENCY: STATUS: COMPLETED PHARMACY COMMUNITY CARE PRESCRIPTION PROCESSING NOTE STL Has ADDENDA Pharmacy service received prescription(s) via: Fax ELIGIBILITY: [facility] ([facility]) eligibility has been verified and/or is documented. PRESCRIPTION INFORMATION: Provider Information::Curt Craft (maiden name: curt Gilbert), 1) nystatin-triamcinolone ointment, apply to affected area BID until healed #30 grams, 2 refills DISPOSITION: The medication(s) prescribed is/are non-formulary. A fax was sent to the prescriber including the formulary alternatives, a non-formulary request form, and VA Criteria for Use (if applicable). Contacted patient's provider regarding: Prescription is for a non-formulary medication/supply or has criteria for use and further information and evaluation is required. Recommendation to convert to a formulary or VA preferred product /ignacio/ OPAL BRENNAN PharmD Community Care Pharmacist, Pharmacy Signed: 01/29/2025 17:15 02/02/2025 ADDENDUM STATUS: COMPLETED sent additional fax /yolanda BRENNAN PharmD Community Care Pharmacist, Pharmacy Signed: 02/02/2025 16:45 02/04/2025 ADDENDUM STATUS: COMPLETED Called prescriber office and left message with Dian. She will send information to provider team and see about getting us separate RXs for formulary agents /ignacio/ OPAL BRENNAN PharmD Community Care Pharmacist, Pharmacy Signed: 02/04/2025 12:58 02/04/2025 ADDENDUM STATUS: COMPLETED received updated RX from provider office for same product that is not carried by our pharmacy. faxed provider and advised that compbo product is not covered /ignacio/ OPAL BRENNAN PharmD [facility] Pharmacist, Pharmacy Signed: 02/04/2025 18:05 02/15/2025 ADDENDUM STATUS: COMPLETED received faxed RX again for combo product. Faxed provider back adviing that we do not carry this product. Requested that they prescribe these products individually /ignacio/ OPAL BRENNAN PharmD [facility] Pharmacist, Pharmacy Signed: 02/15/2025 17:02 02/16/2025 ADDENDUM STATUS: COMPLETED received updated RXs for nystatin and triamcinolone ointments. RXs processed for pt /ignacio/ OPAL BRENNAN PharmD [facility] Pharmacist, Pharmacy Signed: 02/16/2025 17:03 OPAL BRENNAN [facility]
--- OUTSIDE RECORDS SUMMARY | 2025-02-19 19:11 | XMS_ITS | Clinical Summary ---
Author Organization [facility] Address [facility] [place] [address] Care Team Providers Care Commodity Merchant Name Role Phone Dejan Nation MD Primary Care Provider [phone] [phone] Julita Naylor MD Unavailable Charles Paz MD Unavailable [phone] Allergies Active Allergy Reactions Criticality Noted [...] Status post total left knee replacement 01/09/20 23 Localized osteoarthritis of left knee 01/07/2023 Primary osteoarthritis of left knee 11/20/2022 Posterior tibial tendon dysfunction 11/20/2022 Immunizations Immunization Administration Dates Next Due MODERNA [...] How often do you attend chur or jain services? More than 4 times per year [...] place to sleep or slept in a long-term (including now)? No 01/07/2023 Sex and Gender [...] 99.8 kg (220 lb) 08/20/2023 7:46 AM PROGRAM SUPPORT CLERK Height 172.7 cm (5' 8) 08/20/2023 7:46 AM PROGRAM SUPPORT CLERK Body Mass Index 33.45 08/20/2023 7:46 AM PROGRAM SUPPORT CLERK Plan of Treatment Health Maintenance Due Date [...] this topic Medical Devices Implanted Type Area Waiter/Waitress Dining Car Device Identifier Shelf Expiration Date Model / Serial / Lot Cement Simplex Hv W/Gentamicin - [id number] Implanted:Qty : 1 on 01/07/2023 by Charles Paz MD at [facility] Cement Implant Left: Knee [employer] DIV [employer] [id number] 03/14/2024 6195-1-010 / / [id number] Cement Simplex Hv W/Gentamicin - [id number] Implanted:Qty : 1 on 01/07/2023 by Charles Paz MD at [facility] Cement Implant Left: Knee [employer] DIV [employer] [id number] 03/14/2024 6195-1-010 / / [id number] Component Ptlr 32mm Medialize Dome Attune - [id number] Implanted:Qty : 1 on 01/07/2023 by Charles Paz MD at [facility] Patella Left: Knee [employer] [id number] 10/13/2027 [id number] / / [id number] Attune Femoral Cruciate Retaining Implanted:Qty : 1 on 01/07/2023 by Charles Paz MD at [facility] Left: Knee [id number] 08/14/2032 [id number] / / [id number] Attune Knee System Tibial Base Rotating Platform Implanted:Qty : 1 on 01/07/2023 by Charles Paz MD at [facility] Left: Knee [id number] 10/12/2032 [id number] / / [id number] Attune Tibial Insert Platform Cruciate Retaining Implanted:Qty : 1 on 01/07/2023 by Charles Paz MD at [facility] Left: Knee [id number] 12/12/2025 [id number] / / [id number] Insurance MEDICARE Advance Directives * Full Code (Latest Code Status on File) Date Activated Date Inactivated Comments 01/07/2023 1:46 PM 01/08/2023 12:55 PM Care Teams Commodity Merchant Relationship Specialty Start Date End Date Dejan Nation MD [address] [place] [address] [address] [place] [address] PCP - General FAMILY PRACTICE 11/20/22 Julita Naylor MD [address] [place] [address] Consulting Physician CARDIOVASCULAR DISEASE 12/25/22 Charles Paz MD [address] [place] [address] ORTHOPAEDIC SURGERY 12/25/22
--- OUTSIDE RECORDS SUMMARY | 2025-02-19 19:11 | XMS_ITS | Encounter Summary ---
Author Organization [facility] Address [address] [place] [address] Care Team Providers Care Restaurant Hourly Manager Name Role Phone Dejan Nation MD Primary Care Provider [phone] Julita Naylor MD Unavailable Charles Paz MD Unavailable [phone] Encounter Details Date Type Department Care Team (Late st Contact Info) Description 11/20/2022 Spinnakrhart Message Enc [facility] [address], [facility] 1 [place] [address] Charles Paz MD [address] [place] [address] Visit Follow Up Social History Tobacco Use [...] on filedocumented in this encounter Care Teams Restaurant Hourly Manager Relationship Specialty Start Date End Date Dejan Nation MD [address] [address] [address] [place] [address] PCP - General FAMILY PRACTICE 11/20/22 Julita Naylor MD [address] [place] [address] Consulting Physician CARDIOVASCULAR DISEASE 12/25/22 Charles Paz MD [address] [place] [address] ORTHOPAEDIC SURGERY 12/25/22 documented as of this encounter
--- OUTSIDE RECORDS SUMMARY | 2025-02-19 19:11 | XMS_ITS | Encounter Summary ---
Author Organization [facility] Address [address] [place] [address] Care Team Providers Care Fbi Profiler Name Role Phone Dejan Nation MD Primary Care Provider [phone] Julita Naylor MD Unavailable Charles Paz MD Unavailable [phone] Encounter Details Date Type Department Care Team (Late st Contact Info) Description 01/03/2023 TriPlay Message Enc [facility] [address] [place] [address] Julita Naylor MD [address] [place], [place] [address] Dejan Paulette Social History Tobacco Use Types [...] How often do you attend chur or orthodox services? More than 4 times per year 01/07/2023 Do you belong to any clubs o r organizations such as moravian groups, unions, fraternal or athletic groups, or [...] on filedocumented in this encounter Care Teams Fbi Profiler Relationship Specialty Start Date End Date Dejan Nation MD [address] [place] [address] [address] [place] [address] PCP - General FAMILY PRACTICE 11/20/22 Julita Naylor MD [address] [place] [address] Consulting Physician CARDIOVASCULAR DISEASE 12/25/22 Charles Paz MD [address] [place] [address] ORTHOPAEDIC SURGERY 12/25/22 documented as of this encounter
--- OUTSIDE RECORDS SUMMARY | 2025-02-19 19:11 | XMS_ITS | Continuity of Care Document ---
Author Name [facility] Organization [facility] Care Team Providers Care Drug Abuse Social Worker Name Role Phone [facility] Unavailable Unavailable Problems Combined list of problems from [facility] and [facility] facilities. It does not include entries that were removed or entered in error. Problem Status Onset Date Problem Type Date of Resolution Comments Source BACKACHE NOS Active Condition [facility] CHRONIC SINUSITIS NOS Active Condition [facility] Headache Active Condition Mar 14 Entered By: MARIA ISABEL ADAMS Comment: Complicated by analgesic rebound due to Midrin and tylenol u [facility] HYPERSOMNI W SLEEP APNEA Active Condition [facility] IDIO PERIPH NEURPTHY NEC Active Condition [facility] LBP - Low back pain (SNOMED CT [id number]) Active Condition [facility] PAIN IN LIMB Active Condition [facility] PROLONG POSTTRAUM STRESS Active Condition [facility] Diagnosis: ICD-10-CM M54.50 Low back pain, unspecified Active Diagnosis [facility] Medications Combined list of outpatient medications from [facility] and [facility] facilities.Medications provided include 1) outpatient medications from the last 15 months, and 2) patient-reported medications. Medication Details Route Status Patient Instructions Prescription Expires Prescription Number Last Dispense Date Ordering Provider Order Date Order Qty Source ALBUTEROL SO4 90MCG/ACTUA T (CFC-F) INHL,ORAL,8 .5GM INHALE 1 PUFF BY ORAL INHALATI ON EVERY 4 TO 6 HOURS NEEDED FOR SHORTNES S OF BREATH OR WHEEZING . SHAKE WELL. RINSE MOUTHPIE CE FREQUENT LY TO PREVENT CLOGGING . RESPIR ATORY (INHAL ATION) ACTIVE 03/01/2025 [id number] ALMA ROSA MORRIS MD 2024 3 [facility] DIVISIO N BUPROPION HCL 150MG 24HR TAB,SA TAKE ONE TABLET BY MOUTH ONCE A DAY SWALLOW WHOLE - DO NOT CRUSH OR CHEW. ORAL SUSPEND ED 12/02/2025 [id number] 5 ALMA ROSA MORRIS MD 2024 90 [facility] N BUSPIRONE HCL 15MG TAB TAKE ONE TABLET BY MOUTH THREE TIMES A DAY FOR ANXIETY DO NOT TAKE WITH GRAPEFRU IT JUICE. NOTE DIRECTIO NS CHANGE! ORAL ACTIVE 03/10/2025 [id number] 5 SA MARLEN MANTHA K 2024 270 [facility] DIV[facility] N BUSPIRONE HCL 15MG TAB TAKE ONE TABLET BY MOUTH TWICE A DAY DO NOT TAKE WITH GRAPEFRU IT JUICE. ORAL DISCONT INUED 03/01/2025 [id number] 5 ALMA ROSA MORRIS MD 2024 180 [facility] N DESVENLAFAX INE (EQV-PRISTI Q) 25MG TAB,SA TAKE ONE TABLET BY MOUTH ONCE A DAY ORAL DISCONT INUED 09/07/2025 [id number] 5 SA DOC GEEHA K 2024 30 [facility] N ESCITALOPRA M OXALATE 20MG TAB TAKE ONE TABLET BY MOUTH ONCE A DAY ORAL ACTIVE 03/01/2025 [id number] 5 ALMA ROSA MORRIS MD 2024 90 [facility] DIV[facility] N ESCITALOPRA M OXALATE 20MG TAB TAKE ONE TABLET BY MOUTH ONCE A DAY ORAL DISCONT INUED 01/12/2025 [id number] 5 ALMA ROSA MORRIS MD 2024 90 [facility] N FENOFIBRATE 160MG TAB TAKE ONE TABLET BY MOUTH ONCE A DAY - TAKE WITH FOOD ORAL ACTIVE 03/01/2025 [id number] 5 ALMA ROSA MORRIS MD 2024 90 [facility] N FLUTICASONE 100MCG/SALM ETEROL 50MCG INHL,ORAL,D ISKUS,60 INHALE 1 INHALATI ON BY ORAL INHALATI ON TWICE A DAY (OPEN DISKUS; CLICK ONLY ONCE; MAY INHALE TWICE TO COMPLETE DOSE; CLOSE WHEN FINISHED ) RINSE MOUTH AND SPIT AFTER EACH USE. RESPIR ATORY (INHAL ATION) ACTIVE 03/01/2025 [id number] 5 ALMA ROSA MORRIS MD 2024 3 [facility] N HYDROCODONE 7.5MG/ACETA MINOPHEN 325MG TAB TAKE 1 TABLET BY MOUTH FOUR TIMES A DAY NEEDED FOR PAIN CAUTION: DO NOT EXCEED 4000MG PER DAY ACETAMIN OPHEN (APAP) FROM ALL MEDS. ORAL ACTIVE 03/12/2025 [id number] 5 ALMA ROSA MORRIS MD 2024 120 [facility] DIVIS[facility] N HYDROCODONE 7.5MG/ACETA MINOPHEN 325MG TAB TAKE 1 TABLET BY MOUTH FOUR TIMES A DAY NEEDED FOR PAIN CAUTION: DO NOT EXCEED 4000MG PER DAY ACETAMIN OPHEN (APAP) FROM ALL MEDS. ORAL 02/06/2025 [id number] 5 ALMA ROSA MORRIS MD 2024 120 [facility] DIV[facility] N HYDROCODONE 7.5MG/ACETA MINOPHEN 325MG TAB TAKE 1 TABLET BY MOUTH EVERY 6 HOURS NEEDED FOR PAIN CAUTION: DO NOT EXCEED 4000MG PER DAY ACETAMIN OPHEN (APAP) FROM ALL MEDS. ORAL 01/09/2025 [id number] 5 ALMA ROSA MORRIS MD 2024 120 [facility] DIV[facility] N NYSTATIN [id number] M OINT,TOP APPLY TO AFFECTED AREA(S) TWICE A DAY FOR FUNGAL SKIN INFECTIO N - TOPICAL USE ONLY. TOPICA L ACTIVE 02/17/2026 [id number] 5 ALMA ROSA MORRIS MD 2024 30 [facility] N PRAZOSIN HCL 1MG CAP TAKE ONE CAPSULE BY MOUTH AT BEDTIME FOR PTSD MAY CAUSE DIZZINES S OR DROWSINE SS. ORAL ACTIVE 09/07/2025 [id number] 5 SA VIV GEE K 2024 90 [facility] DIV[facility] N PRAZOSIN HCL 1MG CAP TAKE ONE CAPSULE BY MOUTH AT BEDTIME FOR PTSD MAY CAUSE DIZZINES S OR DROWSINE SS. ORAL DISCONT INUED 09/07/2025 [id number] 5 SA VIV GEE K 2024 30 [facility] N QUETIAPINE FUMARATE 50MG TAB TAKE TWO TABLETS BY MOUTH ONCE A DAY . NOTE DOSE/DIR ECTIONS CHANGE ORAL ACTIVE 04/07/2025 [id number] 5 SA VIV GEE K 2024 180 [facility] DIV[facility] N QUETIAPINE FUMARATE 50MG TAB TAKE ONE TABLET BY MOUTH ONCE A DAY ORAL DISCONT INUED 03/01/2025 [id number] 5 ALMA ROSA MORRIS MD 2024 90 [facility] DIV[facility] N QUETIAPINE FUMARATE 50MG TAB TAKE ONE TABLET BY MOUTH ONCE A DAY ORAL DISCONT INUED 01/12/2025 [id number] 5 ALMA ROSA MORRIS MD 2024 90 [facility] DIV[facility] N TRIAMCINOLO NE ACETONIDE 0.1% OINT,TOP APPLY TO AFFECTED AREA(S) TWICE A DAY (EXTERNA L USE ONLY) TOPICA L ACTIVE 02/17/2026 [id number] 5 ALMA ROSA MORRIS MD 2024 30 [facility] DIVIS[facility] N Immunizations Combined list of available immunizations from the Department of Defense and Veterans Affairs facilities. Immunization Series Date Given Administered By Site Reaction Lot Number CVX Code Drug Telephoner Status Comments Source INFLUENZA, UNSPECIFIED FORMULATION 2004 88 complet ed [facility] Vital Signs Combined list of inpatient and outpatient Vital Signs from Department of Defense and Veterans Affairs, ranging from 12 months to all on record, depending upon the facility. Vital Sign Value Date Comments Source SYSTOLIC BLOOD PRESSURE 150 06/04/2024 13:04:59 [facility] DIASTOLIC BLOOD PRESSURE 81 06/04/2024 13:04:59 [facility] PULSE OXIMETRY 96 06/04/2024 13:04:59 [facility] WEIGHT 228 06/04/2024 13:04:59 [facility] BMI 35 kg/m2 06/04/2024 13:04:59 [facility] PAIN 6 06/04/2024 13:04:59 [facility] HEIGHT 68 06/04/2024 13:04:59 [facility] TEMPERATURE 98.3 06/04/2024 13:04:59 [facility] PULSE 51 06/04/2024 13:04:59 [facility] RESPIRATION 16 06/04/2024 13:04:59 [facility] Encounters Combined list of: 1) Encounters from [facility] Affairs facilities going backup to the last 18 months, not all [place] inpatient encounters are included; 2) Encounters from the Department of [facility] facilities going backup to 280 months. Location Location Details Encounter Type Encounter Number Reason For Visit Attending Provider ADM Date DC Date Status Disposition Source [facility] Outpatient Encounter [id number] 01/29 [facility] Outpatient Encounter [id number] SHENG HAND 05/28 [facility] OFFICE O/P EST MOD 30 MIN [id number] Diagnos is: ICD-10- CM M54.50 Low back pain, unspeci fied Angela LAMAR A 06/04 [facility] N [facility] Outpatient Encounter [id number] 06/09 [facility] N [facility] Outpatient Encounter [id number] 06/10 [facility] Outpatient Encounter [id number] 06/25 [facility] Outpatient Encounter [id number] 07/21 [facility] Outpatient Encounter [id number] 07/29 [facility] Outpatient Encounter [id number] 09/02 [facility] Outpatient Encounter [id number] WILBUR FIELD 09/07 [facility] Outpatient Encounter [id number] 09/15 [facility] Outpatient Encounter [id number] 09/30 [facility] Outpatient Encounter [id number] SACHI BRENNAN 12/02 [facility] Encounter [id number] SACHI BRENNAN 12/10 [facility] En[facility] [id number] FANNIE BELTRAN 12/10 [facility] Encounter [id number] SACHI BRENNAN 01/07 [facility] Outpatient Encounter [id number] LOWROBERTA Rafael Cueto 01/13 [facility] CASE MANAGEMENT [id number] OMAR CARVER 01/22 [facility] Outpatient Encounter [id number] SACHI BRENNAN 01/29 [facility] Social History Combined list of available smoking, tobacco, and other social history from Department of Defense and Veterans Affairs facilities. Social History Type Response Date Comment Source Tobacco smoking status ALIS IA-TOBACCO NEVER USED OTHER TYPE 06/04/2024 [facility] History of tobacco use IA-TOBACCO USE EVERY DAY CIGARETTES 06/04/2024 [facility] History of tobacco use CURRENT NON-TOBACCO USER-HX OF USE 02/27/2001 quit 4 yrs. ago. [facility] History of tobacco use PREVIOUS SMOKER 07/31/2000 [facility] History of tobacco use PREVIOUS SMOKER 04/18/2000 [facility] Advance Directives List of completed, amended, or rescinded Advance Directives on record at [facility] of [facility] Affairs facilities. An actual copy of the Directive is not included. Date Advance Directive Provider Source 04/02/2000 ADVANCE DIRECTIVE MARQUISE CANALES [facility]
--- OUTSIDE RECORDS SUMMARY | 2025-02-19 19:11 | XMS_ITS | Encounter Summary ---
Author Organization [facility] Address [facility] [place] [address] Care Team Providers Care Environmental Compliance Engineer Name Role Phone Dejan Nation MD Primary Care Provider [phone] Julita Naylor MD Unavailable Charles Paz MD Unavailable [phone] Encounter Details Date Type Department Care Team (Late st Contact Info) Description 06/28/2023 ANF Technology Message Enc [facility] [address], [facility] 1 [place] [address] Charles Paz MD [address] [place] [address] Visit Follow Up Social History Tobacco Use [...] How often do you attend chur or gnosticism services? More than 4 times per year 01/07/2023 Do you belong to any clubs o r organizations such as yazdanism groups, unions, fraternal or athletic groups, or [...] medical care, and heating? Somewhat hard 01/07/2023 [facility] - Occupational Stress [...] place to sleep or slept in a nursing home (including now)? No 01/07/2023 Sex and [...] on filedocumented in this encounter Care Teams Environmental Compliance Engineer Relationship Specialty Start Date End Date Dejan Nation MD [address] [place] [address] [address] [place] [address] PCP - General FAMILY PRACTICE 11/20/22 Julita Naylor MD [address] [place] [address] Consulting Physician CARDIOVASCULAR DISEASE 12/25/22 Charles Paz MD [address] [place] [address] ORTHOPAEDIC SURGERY 12/25/22 documented as of this encounter
--- OUTSIDE RECORDS SUMMARY | 2025-02-19 19:11 | XMS_ITS | Encounter Summary ---
Author Organization [facility] Address [facility] [place] [address] Care Team Providers Care Real Estate Closer Name Role Phone Dejan Nation MD Primary Care Provider [phone] Julita Naylor MD Unavailable Charles Paz MD Unavailable [phone] Encounter Details Date Type Department Care Team (Late st Contact Info) Description 01/09/2023 iHandlet Message Enc [facility] [address], [facility] 1 [place] [address] Charles Paz MD [address] [place] [address] Dejan Paulette Social History Tobacco Use Types [...] How often do you attend chur or yazidism services? More than 4 times per year [...] place to sleep or slept in a skilled nursing (including now)? No 01/07/2023 Sex and Gender [...] on filedocumented in this encounter Care Teams Real Estate Closer Relationship Specialty Start Date End Date Dejan Nation MD [address] [place] [address] [address] [place] [address] PCP - General FAMILY PRACTICE 11/20/22 Julita Naylor MD [address] [place] [address] Consulting Physician CARDIOVASCULAR DISEASE 12/25/22 Charles Paz MD [address] [place] [address] ORTHOPAEDIC SURGERY 12/25/22 documented as of this encounter
--- OUTSIDE RECORDS SUMMARY | 2025-02-19 19:11 | XMS_ITS ---
Author Name [facility] Organization [facility] Address [address] [place] [address] Care Team Providers Care Cold Molding Press Operator Name Role Phone ERNST LAMAR Primary Care [...] PART A Mar 15, 2007 PART A [id number] Nereida WEINSTEIN PATIENT MEDICARE (WNR) MEDICARE ([place]) PART B Mar 15, 2007 PART B [id number] Nereida WEINSTEIN PATIENT Selected Encounter This section includes the information on record at [place] for the Encounter. Date/Time Encounter Type Encounter Description Reason Provider Source December 02, 2024 04:49 PM Outpatient Encounter ADMIN PAT ACTIVTIES (MASNONCT) [...] 02, 2000 ADVANCE DIRECTIVE MARQUISE CANALES [facility] Encounter Notes: All associated encounter notes This section contains the clinical notes associated to the Encounter. Date/Time Encounter Note(s) Provider Source December 02, 2024 04:49 PM PHARMACY MEDICATIO N MGT DISCHARGE NOTE: LOCAL TITLE: PHARMACY COMMUNITY CARE PRESCRIPTION PROCESSING NOT STANDARD TITLE: PHARMACY MEDICATION MGT DISCHARGE NOTE DATE OF NOTE: DECEMBER 02, 2024@16:49 ENTRY DATE: DECEMBER 02, 2024@16:49:37 AUTHOR: OPAL BRENNAN WH[facility] EXP COSIGNER: URGENCY: STATUS: COMPLETED Pharmacy service received prescription(s) via: Fax ELIGIBILITY: [facility] ([facility]) eligibility has been verified and/or is documented. PRESCRIPTION INFORMATION: Provider Information:hira Amaya, fax: [phone] 1) symbicort 2) wixela 3) seroquel 4) buspar 5) bupropion 6. albuterol HFA 7. lexapro 8. fenofibrate DISPOSITION: The medication(s) prescribed is/are formulary without criteria for use or other restrictions, and will be dispensed to the patient. Contacted patient's provider regarding: Recommendation to convert to a formulary or [place] preferred product Duplicate drug therapy -pt has RXs for both advair and symbicort, duplication of therapy. Also, havs active RX for pristiq. Called provider office and spoke to Susu. She advised that pt is to use Advair (not Symbicort) and that previous RX for pristiq should be cancelled. RXs updated and processed for pt /ignacio/ OPAL BRENNAN PharmD [facility] Pharmacist, Pharmacy Signed: 12/02/2024 16:52 OPAL BRENNAN [facility]
--- OUTSIDE RECORDS SUMMARY | 2025-02-19 19:11 | XMS_ITS ---
Author Name [facility] Organization [facility] [place] Address [address] [place] [address] Care Team Providers Care Correction Warden Name Role Phone ERNST LAMAR Primary Care [...] PART A Mar 15, 2007 PART A [id number] Nereida WEINSTEIN PATIENT MEDICARE (WNR) MEDICARE (M) PART B Mar 15, 2007 PART B [id number] Nereida WEINSTEIN PATIENT Selected Encounter This section includes the information on record at [place] for the Encounter. Date/Time Encounter Type Encounter Description Reason Provider Source December 10, 2024 12:07 PM Outpatient Encounter ADMIN PAT ACTIVTIES (MASNONCT) [...] this document. The data comes from all [place] facilities. Date Advance Directives Provider Source Apr 02, 2000 ADVANCE DIRECTIVE MARQUISE CANALES [facility] Encounter Notes: All associated encounter notes This section contains the clinical notes associated to the Encounter. Date/Time Encounter Note(s) Provider Source December 10, 2024 12:07 PM PHARMACY MEDICATIO N MGT DISCHARGE NOTE: LOCAL TITLE: PHARMACY COMMUNITY CARE PRESCRIPTION PROCESSING NOT STANDARD TITLE: PHARMACY MEDICATION MGT DISCHARGE NOTE DATE OF NOTE: DECEMBER 10, 2024@12:07 ENTRY DATE: DECEMBER 10, 2024@12:07:52 AUTHOR: OPAL BRENNAN [facility] EXP COSIGNER: URGENCY: STATUS: COMPLETED Pharmacy service received prescription(s) via: Fax ELIGIBILITY: [facility] ([facility]) eligibility has been verified and/or is documented. PRESCRIPTION INFORMATION: Provider Information:Curt Craft (maiden name: curt Gilbert), 1) buspirone DISPOSITION: The medication(s) prescribed is/are formulary without criteria for use or other restrictions, and will be dispensed to the patient. /ignacio/ OPAL BRENNAN PharmD [facility] Pharmacist, Pharmacy Signed: 12/10/2024 12:08 OPAL BRENNAN [facility]
--- OUTSIDE RECORDS SUMMARY | 2025-02-19 19:11 | XMS_ITS | Encounter Summary ---
Author Name [facility] Organization [facility] [place] Address [address] [place] [address] Care Team Providers Care Ct Technologist Name Role Phone ERNST LAMAR Primary Care [...] PART A Mar 15, 2007 PART A [id number] CORINNANereida OUSMANECLAUDETTE PATIENT MEDICARE (WNR) MEDICARE (M) PART B Mar 15, 2007 PART B [id number] CORINNANereida OUSMANECLAUDETTE PATIENT Selected Encounter This section includes the information on record at [place] for the Encounter. Date/Time Encounter Type Encounter Description Reason Pro vider Source Jan 22, 2025 09:15 AM CASE MANAGEMENT COMMUNITY CARE CONSULT [place]IA CARVER Encounter Template Text not used by [place] Social History: Smoking Status (Most current) and Tobacco Use (All prior to encounter date) This section includes the most current, and the historical, smoking and tobacco- related health factors from the [place] facility where the Encounter took place. Current Smoking Status This section includes the most current smoking, or tobacco-related health factor, from the [facility] facility where the Encounter took place. Date/Time Current Smoking Status Comment Kristin aj Jun 04, 2024 01:00 PM VA-TOBACCO NEVER U SED OTHER TYPE [facility] Tobacco Use History This section includes a history of the smoking, or tobacco-related health factors, that were collected on or before the date of the Encounter. The data comes from the [place] facility where the Encounter took place. Date/Time Smoking Status/Tobac co Use Comment Facility Jun 04, 2024 01:00 PM VA-TOBACCO SCREEN FOLLOW-UP [facility] Jun 04, 2024 01:00 PM VA-TOBACCO USE ADVICE [facility] Jun 04, 2024 01:00 PM VA-TOBACCO USE INTERNATIONAL TAX MANAGER NO [facility] Jun 04, 2024 01:00 PM VA-TOBACCO USE EVERY DAY CIGARETTES [facility] Jun 04, 2024 01:00 PM VA-TOBACCO USE MED NO [facility] Feb 27, 2001 08:44 AM CURRENT NON-TOBACCO USER-HX OF USE quit 4 yrs. ago. [facility] Jul 31, 2000 11:05 AM CURRENT NON-TOBACCO USER-HX OF USE Stopped three years ago with significant cigarette smoking prior to that time. [facility] Jul 31, 2000 11:05 AM LIFETIME NON-TOBACCO USER [facility] Jul 31, 2000 11:05 AM PREVIOUS SMOKER Severity= MINIMAL [facility] Apr 18, 2000 12:32 PM CURRENT NON-TOBACCO USER-HX OF USE [facility] Apr 18, 2000 12:32 PM PREVIOUS SMOKER [facility] Advance Directives: All historical and current Section Date Range: From patient's date of to the date document was created. This section includes ALL of a patient's completed or amended [place] Advance and Rescinded Directives. The entries below indicate that a directive exists for the patient, but an actual copy is not included with this document. The data comes from all [facility]. Date Advance Directives Provider Source Apr 02, 2000 ADVANCE DIRECTIVE MARQUISE CANALES [facility] Encounter Notes: All associated encounter notes This section contains the clinical notes associated to the Encounter. Date/Time Encounter Note(s) Provider Source Jan 22, 2025 09:15 AM ADMINISTRATIVE NOT E: LOCAL TITLE: ADMINISTRATIVE STL STANDARD TITLE: ADMINISTRATIVE NOTE DATE OF NOTE: JAN 22, 2025@09:15 ENTRY DATE: JAN 22, 2025@09:21:27 AUTHOR: GEORGIA CARVER COSIGNER: URGENCY: STATUS: COMPLETED ADMINISTRATIVE STL Has ADDENDA Written in sleep study consult requesting community care staff to retrieved sleep study results from 12-29-24 @ 8:30 pm, twice, however no results received. Today ecfax to dr. Worley office requesting results to either be faxed to me with DME if cpap is needed to Team c or to community care. Will wait for results. /JACQUELIN Real AUTOMATIC BANDSAW TENDER-C NURSE PRACTITIONER Signed: 01/22/2025 09:39 01/28/2025 ADDENDUM STATUS: COMPLETED No sleep study result receive, today this provider did asked RNCM CF to assist with obtaining results. /JACQUELIN Real AUTOMATIC BANDSAW TENDER-C NURSE PRACTITIONER Signed: 01/28/2025 08:40 02/09/2025 ADDENDUM STATUS: COMPLETED Still has not receive any sleep study result, this provider call [facility] Pulmonary[facility]Sleep Medicine at , talked with staff who was not able to locate sleep study result, therefore gave this provider phone number of [facility] to ask for pulm at [phone], talked with pulm staff, who states will relay need for sleep study to dr. Worley rn, also given fax and team c clinic number for callback. /JACQUELIN Real AUTOMATIC BANDSAW TENDER-C NURSE PRACTITIONER Signed: 02/09/2025 13:51 02/09/2025 ADDENDUM STATUS: COMPLETED Called pt at this time, he verified name and , states he had PSG study on 12-29-24 @ 8:30 pm, states for 8 hours test. States the report indicating severe sleep apnea, states in past he had cpap, had uvula surgery, then unable to tolerate cpap, therefore had this sleep consult placed by [facility] pcp. States he does not know sleep provider plan, states has scheduled appt with [facility] sleep provider on 03/17/25 for result review and plan. [facility] completed psg at [facility]. States unable to get an earlier appt than 03/17/25. Will wait for office to fax over sleep results and plan since advise pt uncertain if [facility] sleep provider want pt to trial cpap again, perform cpap titration study or recommends inspire device. Sleep referral auth exp 03/29/25. /ignacio/ [place] CARVER, MSN AUTOMATIC BANDSAW TENDER-C NURSE PRACTITIONER Signed: 02/09/2025 14:08 [place] CARVER [facility]
--- OUTSIDE RECORDS SUMMARY | 2025-02-19 19:11 | XMS_ITS | Continuity of Care Document ---
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 [address] [facility] , [address], [place], [address], [place]. tel:[phone] Referring Provider: Dejan Nation MD, [address] [place] [address], [place], [address]. tel:[phone] Family History Family Member Type Diagnosis Age At Onset No Information Payers Payer name Insurance type Covered alliance party ID Authoriza tiangelique(s) IDOT [id number] Social History Type Description Quantity Date Captured [...]
--- OUTSIDE RECORDS SUMMARY | 2025-02-19 19:11 | XMS_ITS | Encounter Summary ---
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 Phone None, Provider Primary Care Provider Unavaila Dejan Maya MD Primary Care Provider [phone] Julita Naylor MD Unavailable Charles Paz MD Unavailable [phone] Encounter Details Date Type Department Care Team (Late st Contact Info) Description 12/20/2018 Abstract [facility] CONVERSION [address] [place] [address] , Generic Conversion, Social History Tobacco Use [...] on filedocumented in this encounter Care Teams Footwear Factory Worker Relationship Specialty Start Date End Date None, Provider, PCP - General 09/13/18 11/19/22 Dejan Nation MD [address] [address] [address] [place] [address] PCP - General FAMILY PRACTICE 11/20/22 Julita Naylor MD [address] [place] [address] Consulting Physician CARDIOVASCULAR DISEASE 12/25/22 Charles Paz MD [address] [place] [address] ORTHOPAEDIC SURGERY 12/25/22 documented as of this encounter
--- OUTSIDE RECORDS SUMMARY | 2025-02-19 19:27 | XMS_ITS | Continuity of Care Document ---
Author Name [facility] Organization [facility] Care Team Providers Care Guest Service Team Leader Name Role Phone [facility] Unavailable Unavailable Problems [facility]. It does not include entries that were removed or entered in error. Problem Status Onset Date Problem Type Date of Resolution Comments Source BACKACHE NOS Active Condition [facility] CHRONIC SINUSITIS NOS Active Condition [facility] Headache Active Condition Mar 14 Entered By: MARIA ISABEL ADAMS Comment: Complicated by analgesic rebound due to Midrin and tylenol u [facility] HYPERSOMNI W SLEEP APNEA Active Condition [facility] IDIO PERIPH NEURPTHY NEC Active Condition [facility] LBP - Low back pain (SNOMED CT [id number]) Active Condition [facility] PAIN IN LIMB Active Condition [facility] PROLONG POSTTRAUM STRESS Active Condition [facility] Diagnosis: ICD-10-CM M54.50 Low back pain, unspecified Active Diagnosis [facility] Medications Combined list of outpatient medications from [facility] facilities.Medications provided include 1) outpatient medications [...] . RESPIR ATORY (INHAL ATION) ACTIVE 03/01/2025 [id number] 5 ALMA ROSA MORRIS MD 2024 3 [facility] BUPROPION HCL 150MG 24HR TAB,SA TAKE ONE TABLET BY MOUTH ONCE A DAY SWALLOW WHOLE - DO NOT CRUSH OR CHEW. ORAL SUSPEND ED 12/02/2025 [id number] 5 ALMA ROSA MORRIS MD 2024 90 [facility] BUSPIRONE HCL 15MG TAB TAKE ONE TABLET BY MOUTH THREE TIMES A DAY FOR ANXIETY DO NOT TAKE WITH GRAPEFRU IT JUICE. NOTE DIRECTIO NS CHANGE! ORAL ACTIVE 03/10/2025 [id number] 5 SA MARLEN MANTHA K 2024 270 [facility] BUSPIRONE HCL 15MG TAB TAKE ONE TABLET BY MOUTH TWICE A DAY DO NOT TAKE WITH GRAPEFRU IT JUICE. ORAL DISCONT INUED 03/01/2025 [id number] 5 ALMA ROSA MORRIS MD 2024 180 [facility] DESVENLAFAX INE (EQV-PRISTI Q) 25MG TAB,SA TAKE ONE TABLET BY MOUTH ONCE A DAY ORAL DISCONT INUED 09/07/2025 [id number] 5 SA DOC GEEHA K 2024 30 [facility] ESCITALOPRA M OXALATE 20MG TAB TAKE ONE TABLET BY MOUTH ONCE A DAY ORAL ACTIVE 03/01/2025 [id number] 5 ALMA ROSA MORRIS MD 2024 90 [facility] ESCITALOPRA M OXALATE 20MG TAB TAKE ONE TABLET BY MOUTH ONCE A DAY ORAL DISCONT INUED 01/12/2025 [id number] 5 ALMA ROSA MORRIS MD 2024 90 [facility] FENOFIBRATE 160MG TAB TAKE ONE TABLET BY MOUTH ONCE A DAY - TAKE WITH FOOD ORAL ACTIVE 03/01/2025 [id number] 5 ALMA ROSA MORRIS MD 2024 90 [facility] FLUTICASONE 100MCG/SALM ETEROL 50MCG INHL,ORAL,D ISKUS,60 INHALE 1 INHALATI ON BY ORAL INHALATI ON TWICE A DAY (OPEN DISKUS; CLICK ONLY ONCE; MAY INHALE TWICE TO COMPLETE DOSE; CLOSE WHEN FINISHED ) RINSE MOUTH AND SPIT AFTER EACH USE. RESPIR ATORY (INHAL ATION) ACTIVE 03/01/2025 [id number] 5 ALMA ROAS MORRIS MD 2024 3 [facility] HYDROCODONE 7.5MG/ACETA MINOPHEN 325MG TAB TAKE 1 TABLET BY MOUTH FOUR TIMES A DAY NEEDED FOR PAIN CAUTION: DO NOT EXCEED 4000MG PER DAY ACETAMIN OPHEN (APAP) FROM ALL MEDS. ORAL ACTIVE 03/12/2025 [id number] 5 ALMA ROSA MORRIS MD 2024 120 [facility] HYDROCODONE 7.5MG/ACETA MINOPHEN 325MG TAB TAKE 1 TABLET BY MOUTH FOUR TIMES A DAY NEEDED FOR PAIN CAUTION: DO NOT EXCEED 4000MG PER DAY ACETAMIN OPHEN (APAP) FROM ALL MEDS. ORAL 02/06/2025 [id number] 5 ALMA ROSA MORRIS MD 2024 120 [facility] HYDROCODONE 7.5MG/ACETA MINOPHEN 325MG TAB TAKE 1 TABLET BY MOUTH EVERY 6 HOURS NEEDED FOR PAIN CAUTION: DO NOT EXCEED 4000MG PER DAY ACETAMIN OPHEN (APAP) FROM ALL MEDS. ORAL 01/09/2025 [id number] 5 ALMA ROSA MORRIS MD 2024 120 [facility] NYSTATIN [id number]/G M OINT,TOP APPLY TO AFFECTED AREA(S) TWICE A DAY FOR FUNGAL SKIN INFECTIO N - TOPICAL USE ONLY. TOPICA L ACTIVE 02/17/2026 [id number] 5 ALMA ROSA MORRIS MD 2024 30 [facility] PRAZOSIN HCL 1MG CAP TAKE ONE CAPSULE BY MOUTH AT BEDTIME FOR PTSD MAY CAUSE DIZZINES S OR DROWSINE SS. ORAL ACTIVE 09/07/2025 [id number] 5 SA VIV GEE K 2024 90 [facility] PRAZOSIN HCL 1MG CAP TAKE ONE CAPSULE BY MOUTH AT BEDTIME FOR PTSD MAY CAUSE DIZZINES S OR DROWSINE SS. ORAL DISCONT INUED 09/07/2025 [id number] 5 SA VIV GEE K 2024 30 [facility] QUETIAPINE FUMARATE 50MG TAB TAKE TWO TABLETS BY MOUTH ONCE A DAY . NOTE DOSE/DIR ECTIONS CHANGE ORAL ACTIVE 04/07/2025 [id number] 5 SA VIV GEE K 2024 180 [facility] QUETIAPINE FUMARATE 50MG TAB TAKE ONE TABLET BY MOUTH ONCE A DAY ORAL DISCONT INUED 03/01/2025 [id number] 5 ALMA ROSA MORRIS MD 2024 90 [facility] QUETIAPINE FUMARATE 50MG TAB TAKE ONE TABLET BY MOUTH ONCE A DAY ORAL DISCONT INUED 01/12/2025 [id number] 5 ALMA ROSA MORRIS MD 2024 90 [facility] TRIAMCINOLO NE ACETONIDE 0.1% OINT,TOP APPLY TO AFFECTED AREA(S) TWICE A DAY (EXTERNA L USE ONLY) TOPICA L ACTIVE 02/17/2026 [id number] 5 ALMA ROSA MORRIS MD 2024 30 [facility] Immunizations Combined list of available immunizations from the Department of Defense and Veterans Affairs facilities. Immunization Series Date Given Administered By Site Reaction Lot Number CVX Code Drug Welfare Administrator Status Comments Source INFLUENZA, UNSPECIFIED FORMULATION 2004 88 complet ed [facility] Vital Signs Combined list of inpatient and outpatient Vital Signs from Department of Defense and Veterans Affairs, ranging from 12 months to all on record, depending upon the facility. Vital Sign Value Date Comments Source SYSTOLIC BLOOD PRESSURE 150 06/04/2024 13:04:59 [facility] DIASTOLIC BLOOD PRESSURE 81 06/04/2024 13:04:59 [facility] PULSE OXIMETRY 96 06/04/2024 13:04:59 [facility] WEIGHT 228 06/04/2024 13:04:59 [facility] BMI 35 kg/m2 06/04/2024 13:04:59 [facility] PAIN 6 06/04/2024 13:04:59 [facility] HEIGHT 68 06/04/2024 13:04:59 [facility] TEMPERATURE 98.3 06/04/2024 13:04:59 [facility] PULSE 51 06/04/2024 13:04:59 [facility] RESPIRATION 16 06/04/2024 13:04:59 [facility] Encounters Combined list of: 1) Encounters from [facility] Affairs facilities going backup to the last 18 months, not all [place] inpatient encounters are included; 2) Encounters from the Department of [facility] facilities going backup to 280 months. Location Location Details Encounter Type Encounter Number Reason For Visit Attending Provider ADM Date DC Date Status Disposition Source [facility] Outpatient Encounter [id number] 01/29 [facility] Outpatient Encounter [id number] SHENG HAND 05/28 [facility] OFFICE O/P EST MOD 30 MIN [id number] Diagnos is: ICD-10- CM M54.50 Low back pain, unspeci fied Angela LAMAR A 06/04 [facility] N [facility] Outpatient Encounter [id number] 06/09 [facility] N [facility] Outpatient Encounter [id number] 06/10 [facility] Outpatient Encounter [id number] 06/25 [facility] Outpatient Encounter [id number] 07/21 [facility] Outpatient Encounter [id number] 07/29 [facility] Outpatient Encounter [id number] 09/02 [facility] Outpatient Encounter [id number] WILBUR FIELD 09/07 [facility] Outpatient Encounter [id number] 09/15 [facility] Outpatient Encounter [id number] 09/30 [facility] Outpatient Encounter [id number] SACHI BRENNAN 12/02 [facility] En[facility] [id number] SACHI BRENNAN 12/10 [facility] En[facility] [id number] FANNIE BELTRAN 12[facility]10 [facility] En[facility] [id number] SACHI BRENNAN 01/07 [facility] Outpatient Encounter [id number] LOWROBERTA Rafael Cueto 01/13 [facility] N [facility] CASE MANAGEMENT [id number] OMAR CARVER 01/22 [facility] Outpatient Encounter [id number] SACHI BRENNAN 01/29 [facility] Social History Combined list of available smoking, tobacco, and other social history from Department of Defense and Veterans Affairs facilities. Social History Type Response Date Comment Source Tobacco smoking status MIIS [place]-TOBACCO NEVER USED OTHER TYPE 06/04/2024 [facility] History of tobacco use [place]-TOBACCO USE EVERY DAY CIGARETTES 06/04/2024 [facility] History of tobacco use CURRENT NON-TOBACCO USER-HX OF USE 02/27/2001 quit 4 yrs. ago. [facility] History of tobacco use PREVIOUS SMOKER 07/31/2000 [facility] History of tobacco use PREVIOUS SMOKER 04/18/2000 [facility] Advance Directives List of completed, amended, or rescinded Advance Directives on record at [facility] Affairs facilities. An actual copy of the Directive is not included. Date Advance Directive Provider Source 04/02/2000 ADVANCE DIRECTIVE MARQUISE CANALES [facility]
--- OUTSIDE RECORDS SUMMARY | 2025-02-19 19:27 | XMS_ITS | Continuity of Care Document ---
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 [address] [facility] , [address], [place], [address], [place]. tel:[phone] Referring Provider: Dejan Nation MD, [address] [place] [address], [place], [address]. tel:[phone] Family History Family Member Type Diagnosis Age At Onset No Information Payers Payer name Insurance type Covered constitution party ID Authoriza tiangelique(s) IDOT [id number] Social History Type Description Quantity Date Captured [...]
[2025-02-19] MEDS: cefTRIAXone 1 GM, LIDOCAINE 1% LOCAL INJ 2.1 ML IM (20:22)
[2025-02-19 21:58] VITALS: BP 133/74; PULSE 89; RESP 20; O2SAT 100
--- NOTE | 2025-02-19 21:58 | PC.NURSE ---
Explained to pt about wait time and still awaiting CT results. Pt resting and talking w/ , VSS.
[2025-02-19 22:35] VITALS: BP 136/85; PULSE 85; RESP 18; TEMP 36.6; O2SAT 99
== END 2025-02-19 22:36 | disposition home or self-care (01) ==
PROVIDERS: Emergency Provider Emergency Medicine; PCP Family Medicine
DX: S61.012A Laceration without foreign body of left thumb without damage to nail, initial encounter (principal); J44.9 Chronic obstructive pulmonary disease, unspecified; G20.A1 Parkinson's disease without dyskinesia, without mention of fluctuations; E78.2 Mixed hyperlipidemia; F17.210 Nicotine dependence, cigarettes, uncomplicated; W29.3XXA Contact with powered garden and outdoor hand tools and machinery, initial encounter
CPT/HCPCS: 73200; 96372; 99284; J0696; J2003